=== PATIENT | female | born 1945 | race Caucasian/White ===

== ENCOUNTER → 2017-01-28 | Outpatient (CLI) | payer OTHER ==
[~2017-01-28] MED LIST: CHOL20009 PO; DILT-203 PO; ESCI1TAB10 PO; LOSA50TA6 PO; PYRI50TA77 PO
[2017-01-28 13:08] LABS: BASO % 0.7 %; BASO ABS # 0.05 K/uL (0-0.2); COMPLETE YES; EOS % 1.3 %; IG% 0.1 %; LYMPH % 32.9 %; LYMPH ABS # 2.35 K/uL (1.2-3.4); MEAN CELL VOLUME 97.8 fL (80-100); MEAN CORPUSCULAR HEMOGLOBIN 33.1 pg (25-34); MEAN CORPUSCULAR HGB CONC 33.9 g/dl (32-36); MEAN PLATELET VOLUME 10.9 fL (7.4-10.4); MONO % 10.3 %; NEUT % 54.7 %; PLATELET COUNT 270 K/uL (130-400); WHITE BLOOD COUNT 7.15 K/uL (4.8-10.8)
[2017-01-28 13:43] LABS: ALT/SGPT 23 U/L (12-78); AST/SGOT 19 U/L (15-37); BLOOD UREA NITROGEN 18 mg/dl (7-18); CALCIUM 10.1 mg/dl (8.5-10.1); CARBON DIOXIDE 24 mmol/L (21-32); CHLORIDE 110 mmol/L (98-107); CHOLESTEROL 269 mg/dl (0-200); CREATININE 0.96 mg/dl (0.60-1.20); GLUCOSE 86 mg/dl (70-99); POTASSIUM 4.4 mmol/L (3.5-5.1); SODIUM 143 mmol/L (136-145); TRIGLYCERIDES 73 mg/dl (0-150); VERY LOW DENSITY LIPOPROT CALC 15 mg/dl
[2017-01-28 13:47] LABS: ALKALINE PHOSPHATASE 85 U/L (45-117); CHOLESTEROL/HDL RATIO 3.4; HDL CHOLESTEROL 78 mg/dl; LDL CHOLESTEROL CALCULATED 176 mg/dl
== END | disposition home or self-care (01) ==
LOC: C.LAB1850 11:52
PROVIDERS: ATTEND Physician Assistant
DX: Z00.00 Encounter for general adult medical examination without abnormal findings (principal)

== ENCOUNTER → 2018-03-07 | Outpatient (CLI) | payer OTHER | END | disposition home or self-care (01) | LOC: C.MAMM 12:12 | PROVIDERS: ATTEND Internal Medicine | DX: M81.0 Age-related osteoporosis without current pathological fracture (principal); M85.851 Other specified disorders of bone density and structure, right thigh; M85.852 Other specified disorders of bone density and structure, left thigh ==

== ENCOUNTER 2023-06-25 20:15 | Observation (INO) ==
[2023-06-25] MEDS ORDERED: ACETAMINOPHEN 1,000 MG/100 ML VIAL IV STA (20:59)
--- NOTE | 2023-06-25 21:00 | Emergency Department Note ---
Impression & Plan CHI (closed head injury), Contusion of face, Laceration of lip, Contusion of hand, right, Contusion of right shoulder, Concussion with loss of consciousness ED Provider Note NAME: KIP KU AGE: 77 SEX: Female INFORMANT: Patient ED PROVIDER(S): Edward Melton MD CHIEF COMPLAINT: Fall PLAN: Disposition: Admitted Outpatient prescription management: none Referral: None MEDICAL DECISION MAKING: patient presented to emergency room because of a fall. She was promptly evaluated. She did suffer moderate facial trauma with lip laceration and moderate contusions to the midface and nose. Patient had CT imaging ordered as well as x-ray imaging of the right shoulder and right hand. She was given a dose of IV Tylenol. The patient had blood work performed. She was taken emergently for CT imaging. CT imaging of the head, facial bones, and cervical spine were negative for fracture, dislocation or intracranial hemorrhage. Patient did have soft tissue swelling noted thankfully the patient did not suffer any fracture. Her lip lacerations were evaluated and did not require any suture repair. Patient cervical collar was removed and she had no significant issues with her neck. Patient's ECG was normal sinus rhythm. She did have some nonspecific changes anteriorly and inferiorly. Her CBC, chemistry panel, and LFTs were unremarkable. X-ray imaging of the right hand was negative for fracture. Patient declined imaging of the right shoulder. Patient suffered a significant concussion and facial contusions. Superficial lacerations did not require suturing at this time. I discussed monitoring in the hospital overnight and the patient was in agreement. Consultation was made with Dr. Matias of the hospitalist service. Patient was evaluated in the ER for further management. Care/management discussed with: Discussed with manager strategic alliances Level of care consideration(s): After review of the information above and other included data, I feel the patient requires escalation of care to admission Triage Nursing notes: reviewed and agree them. Vital Signs: reviewed and remarkable for no significant abnormalities Additional History obtained from: none Chronic Medical/Social Conditions affecting care: Hypertension Prior/ Outside/ External records reviewed: none Differential Diagnosis: Fracture, dislocation, contusion, intra-abdominal, pneumothorax, intrathoracic, intracranial, neurologic, compartment syndrome, rhabdomyolysis, as well as other pathologies. Diagnostics, independently interpreted by me: ECG: Twelve-lead ECG reveals normal sinus rhythm at [address] Indra inferiorly and anteriorly. Left anterior fascicular block. Cardiac Monitoring: Cardiac monitoring ordered by me: The patient was placed on continuous cardiac monitoring and observed. It revealed a normal sinus rhythm at 62 beats per minute without ectopy or evidence of dysrhythmia. Medical decision rules: none Imaging studies: CT imaging of the head, facial bones, and cervical spine reveal no evidence of bony trauma. No intracranial bleeding. Patient does have soft tissue swelling present. HPI: 77 year old Female arrives for evaluation of a fall. Patient states she was out walking her dog and tripped. She did lose consciousness. She was found by neighbor. Unknown downtime. Patient had obvious signs of facial trauma. She was bleeding from her upper lip as well. There is bruising around her right eye. Patient also notes some bruising on the right shoulder and soreness in the right fourth finger she did have an episode of emesis. Patient also notes some mild neck pain. Denies any illness today. Patient states that she had this happen to her 1 time before where she tripped on her dog leash. She suffered facial trauma at that time as well. Pt denies visual changes, neck pain, chest pain, breathing difficulties, nausea, vomiting, abdominal pain, back pain, other extremity pain, numbness, weakness, or other complaints. PAST MEDICAL HISTORY: See Below, hypertension PAST SURGICAL HISTORY: See Below, SOCIAL HISTORY: See Below, retired HOME MEDICATIONS: See Below ALLERGIES: See Below VITALS: See Below PHYSICAL EXAMINATION: GENERAL: Awake, uncomfortable appearing, no distress HEAD: Normocephalic, forehead contusion noted no marquis sign. No raccoon eyes but right periorbital ecchymosis present.. EYES: Normal conjunctiva. PERRL. EARS: External ears normal. Right TM normal. Left TM normal. NOSE: No septal hematoma. Dried blood at the nares. Contusion present. Mildly tender. OROPHARYNX: Laceration to the external as well as internal upper lip in the midline that parallels the vermilion border but not involving border. Lower lips, tongue, and mucosa unremarkable. No erythema or exudate. NECK: Inspection normal. No tracheal deviation or JVD. No posterior midline tenderness. No step offs noted. RESPIRATORY: CTA bilaterally. Breath sounds equal. No wheezes. No rhonchi. Normal respiratory effort. CARDIAC: Regular rate, normal rhythm. No murmurs. No rubs. ABDOMEN: Inspection reveals no abnormalities. Soft, non distended. No tenderness to palpation. No hernias. BACK: No midline step offs or tenderness to palpation. Unremarkable. PELVIS: Stable to rock. SKIN: Normal. LYMPH: No adenopathy. MUSCULOSKELETAL: Left upper and both lower extremities are atraumatic. There is a contusion noted to the right anterior deltoid area. Good range of motion of the right shoulder and elbow without any significant tenderness. There is ecchymosis of the right proximal fourth finger with tenderness to palpation. There is a mild skin tear noted to the back of the right hand. NEURO: GCS 15. Normal sensorium. No sensory or motor deficits noted. PROCEDURES: none CRITICAL CARE: none OBSERVATION NOTE: none Past Med/Surg History Medical History Arthralgia of multiple sites SOB (shortness of breath) on exertion Lightheadedness Colitis Cough Vitamin D deficiency History of Clostridium difficile colitis Surgical History H/O cataract removal with insertion of prosthetic lens S/P tonsillectomy S/P partial colectomy S/P tooth extraction S/P knee surgery Family History Mother Diabetes Macular degeneration Grandmother (Maternal) Macular degeneration Family/Other Osteoporosis Other Myocardial infarction Denies family history of Ovarian cancer Prostate cancer Breast cancer Colorectal cancer Social History Smoking Status: Never smoker Second Hand Exposure: No; Hx Alcohol Use: Yes Hx Substance Use: No Preferred Language: Bulgarian Communication Ability: Effective Visual Impairment: No Limitations Hearing Ability: Normal [employer] Required: No marital status: Current Living Situation: Spouse current occupational status: retired Feels Safe at Home: Yes Childhood Exposure to Second-Hand Smoke: No Dental Care, Regularly: Yes Physical Activity Frequency: 3-4 Times per Week Seatbelt Use: always Sunscreen Use: Yes Allergies Allergies Allergy/AdvReac Type Severity Reaction Status Date / Time clindamycin Allergy Unknown CAN'T Verified 06/25/23 21:35 REMEMBER codeine Allergy Unknown CAN'T Verified 06/25/23 21:35 REMEMBER oxycodone Allergy Unknown CAN'T Verified 06/25/23 21:35 REMEMBER Penicillins Allergy Unknown CAN'T Verified 06/25/23 21:35 REMEMBER sulfamethoxazole Allergy Unknown CAN'T Verified 06/25/23 21:35 [From Bactrim] REMEMBER Tetracyclines Allergy Unknown CAN'T Verified 06/25/23 21:35 REMEMBER trimethoprim [From Bactrim] Allergy Unknown CAN'T Verified 06/25/23 21:35 REMEMBER Home Meds Home Medications Medication Instructions Recorded Confirmed cholecalciferol (vitamin D3) 50 2,000 units PO DAILY #30 tabs 07/03/19 06/25/23 mcg (2,000 unit) tablet folic acid 1 mg tablet 1 mg PO DAILY 03/27/21 06/25/23 desonide 0.05 % topical ointment 1 applic topical BID PRN Skin 03/08/22 06/25/23 Irritation #1 g Previous Rx's Medication Instructions Recorded lactobacillus combination no.4 3 3,000 mmu cells PO DAILY #30 caps 10/07/21 billion cell capsule (Probiotic) diltiazem HCl 240 mg capsule,24 240 mg PO DAILY #90 caps 08/19/22 hr,extended release valsartan 80 mg tablet 80 mg PO DAILY #90 tabs 08/19/22 levothyroxine 50 mcg tablet 50 mcg PO DAILY #90 tabs 05/09/23 escitalopram oxalate 20 mg tablet 20 mg PO DAILY #90 tabs 06/09/23 Results & Data (ED) Vital Signs Vital Signs - 24 hr 06/25/23 20:25 06/25/23 20:27 06/25/23 20:30 Temperature 36.3 C L Temperature Source Oral Pulse Rate 61 62 Pulse Rate [Bilateral] 54 L Respiratory Rate 18 20 Blood Pressure 163/101 H Blood Pressure [Right Arm] 163/101 H Blood Pressure Mean 121 Blood Pressure Mean [Right Arm] 121 Pulse Oximetry 95 94 Oxygen Delivery Method Room Air Room Air Sepsis Recent Fever Within 48 Hours No Sepsis New/Unexplained Change in Mental Status N/A Sepsis Action Taken by Nursing No Action Required 06/25/23 20:58 06/25/23 23:00 06/25/23 23:30 Temperature Temperature Source Pulse Rate 63 64 Pulse Rate [Bilateral] Respiratory Rate 18 27 H Blood Pressure 123/78 129/71 Blood Pressure [Right Arm] Blood Pressure Mean 93 90 Blood Pressure Mean [Right Arm] Pulse Oximetry 98 Oxygen Delivery Method Sepsis Recent Fever Within 48 Hours Sepsis New/Unexplained Change in Mental Status Sepsis Action Taken by Nursing 06/26/23 00:30 06/26/23 00:30 06/26/23 00:31 Temperature Temperature Source Pulse Rate 69 67 68 Pulse Rate [Bilateral] Respiratory Rate 21 13 Blood Pressure 151/95 H Blood Pressure [Right Arm] Blood Pressure Mean 113 Blood Pressure Mean [Right Arm] Pulse Oximetry 93 Oxygen Delivery Method Sepsis Recent Fever Within 48 Hours Sepsis New/Unexplained Change in Mental Status Sepsis Action Taken by Nursing 06/26/23 00:31 Temperature Temperature Source Pulse Rate Pulse Rate [Bilateral] Respiratory Rate Blood Pressure 151/95 H Blood Pressure [Right Arm] Blood Pressure Mean 113 Blood Pressure Mean [Right Arm] Pulse Oximetry Oxygen Delivery Method Sepsis Recent Fever Within 48 Hours Sepsis New/Unexplained Change in Mental Status Sepsis Action Taken by Nursing Laboratory Data 06/25/23 20:42 06/25/23 21:52 Lab Results 06/25/23 06/25/23 06/25/23 Range/Units 20:42 20:49 21:52 WBC 6.16 (4.8-10.8) K/ul RBC 4.51 (4.20-5.40) M/uL Hgb 15.2 (12.0-16.0) g/dl POC Hgb 16.3 H (12.0-16.0) g/dl Hct 44.5 (37.0-47.0) % POC Hct 48 H (37-47) % MCV 98.7 (80.0-100.0) fL MCH 33.7 (25.0-34.0) pg MCHC 34.2 (32.0-36.0) g/dL RDW Std Deviation 50.5 H (36.4-46.3) fL RDW Coeff of Ciarra 13.8 (11.5-14.5) % Plt Count 166 (130-400) K/uL MPV 11.6 (9.4-12.4) fL Immature Gran % (Auto) 0.5 % Neut % (Auto) 66.9 % Lymph % (Auto) 19.0 % Lumpkin % (Auto) 10.4 % Eos % (Auto) 2.1 % Baso % (Auto) 1.1 % Neut # (Auto) 4.12 (1.40-6.50) K/uL Lymph # (Auto) 1.17 L (1.20-3.40) K/uL [place]kin # (Auto) 0.64 H (0.11-0.59) K/uL Eos # (Auto) 0.13 (0.00-0.50) K/uL Baso # (Auto) 0.07 (0.00-0.20) K/uL Immature Gran # (Auto) 0.03 (0.01-0.20) K/uL POC Sodium 133 L (135-144) mmol/L Sodium Cancelled 135 L POC Potassium 8.6 H* (3.3-5.0) mmol/L Potassium Cancelled 4.6 POC Chloride 105 (101-112) mmol/L Chloride Cancelled 102 Carbon Dioxide Cancelled 22 POC Total CO2 23 L (24-31) mmol/L Anion Gap Cancelled 11 POC Anion Gap 14.0 L (16-25) mmol/L POC BUN 24 H (7-18) mg/dl BUN Cancelled 15 Creatinine Cancelled 0.91 POC Creatinine 1.2 (0.6-1.3) mg/dl Est Cr Clr Drug Dosing Cancelled 50.0 Est GFR ( Amer) Cancelled 70.5 Est GFR (Non-Af Amer) Cancelled 60.9 BUN/Creatinine Ratio Cancelled 16.5 Glucose Cancelled 100 H POC Glucose (other) 98 (70-99) mg/dl Calcium Cancelled 9.0 POC Ioniz Calcium Ronald 1.00 L (1.12-1.32) mmol/l Total Bilirubin Cancelled 0.3 AST Cancelled 22 ALT Cancelled 17 Alkaline Phosphatase Cancelled 99 Troponin I High Sens 8.1 (0-14) pg/ml Total Protein Cancelled 7.4 Albumin Cancelled 4.1 Globulin Cancelled 3.3 Albumin/Globulin Ratio Cancelled 1.2 TSH Cancelled 1.943 Administered Medications Discontinued Medications Acetaminophen (Ofirmev) 1,000 mg in 100 mls @ 400 mls/hr IV NOW STA Stop: 06/25/23 21:13 Last Infusion: 06/25/23 21:28 Dose: Infused Documented By: Admin: 06/25/23 21:13 Dose: 400 mls/hr Documented By: RODOLFO Ondansetron HCl (Ondansetron Inj 2 Mg/Ml 2 Ml Vial) Confirm Administered Dose 4 mg .ROUTE .STK-MED ONE Stop: 06/25/23 21:04 Last Admin: 06/25/23 21:28 Dose: Not Given Documented By: RODOLFO Ondansetron HCl (Ondansetron Inj 2 Mg/Ml 2 Ml Vial) 4 mg IV NOW STA Stop: 06/25/23 21:11 Last Admin: 06/25/23 21:13 Dose: 4 mg Documented By: RODOLFO Imaging Data Radiologist's Impression: Head CT 06/25/23 20:39 Exam(s): CT HEAD Without Contrast EXAM: CT Head Without Intravenous Contrast CLINICAL HISTORY: Reason for exam: fall. TECHNIQUE: Axial computed tomography images of the head/brain without intravenous contrast. CTDI is 37.78 mGy and DLP is 1334.18 mGy-cm. Automated exposure control was utilized for the study. A dose lowering technique was utilized adhering to the principles of ALARA. COMPARISON: No relevant prior studies available. FINDINGS: Brain: Mild periventricular and deep white matter low density consistent with chronic small vessel disease and/or senescent changes. No acute large vessel infarct or intracranial hemorrhage is seen. Ventricles: Unremarkable. No ventriculomegaly. Bones/joints: Unremarkable. No orbital or acute facial fracture is identified. Soft tissues: There is soft tissue swelling over the right maxilla and on the medial aspect of the right orbit preseptal soft tissues consistent with contusion. Sinuses: Unremarkable as visualized. No acute sinusitis. Mastoid air cells: Unremarkable as visualized. No mastoid effusion. IMPRESSION: 1. No orbital or acute facial fracture is identified. 2. There is soft tissue swelling over the right maxilla and on the medial aspect of the right orbit preseptal soft tissues consistent with contusion. 3. Mild periventricular and deep white matter low density consistent with chronic small vessel disease and/or senescent changes. No acute large vessel infarct or intracranial hemorrhage is seen. Electronically signed by: Dale Matias MD 06/25/23 21:[address] 06/25/23 20:53 Exam(s): CT C SPINE EXAM: CT Cervical Spine Without Intravenous Contrast CLINICAL HISTORY: Reason for exam: fall. TECHNIQUE: Axial computed tomography images of the cervical spine without intravenous contrast. CTDI is 37.78 mGy and DLP is 1334.18 mGy-cm. Automated exposure control was utilized for the study. A dose lowering technique was utilized adhering to the principles of ALARA. COMPARISON: No relevant prior studies available. FINDINGS: Vertebrae: Mild narrowing of the atlantodental joint. The odontoid process is intact. No acute fracture. Soft tissues: Unremarkable. DISCS/SPINAL CANAL/NEURAL FORAMINA: C2-C3: Unremarkable. No significant disc disease. No stenosis. C3-C4: Unremarkable. No significant disc disease. No stenosis. C4-C5: Mild degenerative disc disease. No stenosis. C5-C6: Moderate degenerative disc disease. No stenosis. C6-C7: Moderate degenerative disc disease. No stenosis. C7-T1: Unremarkable. No significant disc disease. No stenosis. IMPRESSION: Mild multilevel degenerative disc disease and facet arthrosis throughout the cervical spine. No acute fracture or subluxation is seen. Electronically signed by: Dale Matias MD 06/25/23 21:[address] 06/25/23 20:53 Exam(s): CT FACIAL Without Contrast EXAM: CT Maxillofacial Without Intravenous Contrast CLINICAL HISTORY: Reason for exam: fall. TECHNIQUE: Axial computed tomography images of the face without intravenous contrast. CTDI is 37.78 mGy and DLP is 1334.18 mGy-cm. Automated exposure control was utilized for the study. A dose lowering technique was utilized adhering to the principles of ALARA. COMPARISON: No relevant prior studies available. FINDINGS: Bones/joints: The mandible is intact and normally positioned. Soft tissues: Soft tissue swelling over the right maxilla and medial aspect of the right orbit. Orbits: The globes are symmetrical. No retrobulbar hematoma is seen. The orbital rim is intact bilaterally. Sinuses: Unremarkable. No air-fluid levels. Nasal cavity/septum: The nasal bones appear intact. IMPRESSION: Soft tissue swelling over the right maxilla and orbit. No orbital or facial fracture is identified. Electronically signed by: Dale Matias MD 06/25/23 21:54 PM Hand X-Ray 06/25/23 20:59 RIGHT HAND 3 VIEWS CLINICAL HISTORY: Fall. Fourth finger pain. FINDINGS: 3 views of the right hand are obtained. No prior studies are available for comparison at the time of dictation. The skeletal structures are osteopenic. No fracture is seen. Minimal degenerative change is observed. The overlying soft tissues are within normal limits. An IV catheter is present along the dorsal aspect of the wrist. IMPRESSION: No acute bony abnormality is identified. Electronically signed by: Brandyn Mcdonald M.D. 06/25/2023 11:00 PM Discharge Plan Visit Data Chief Complaint: Fall Stated Complaint: GLF, Facial Injuries ED Provider: Edward Melton Discharge Problem: CHI (closed head injury), Contusion of face, Laceration of lip, Contusion of hand, right, Contusion of right shoulder, Concussion with loss of consciousness Patient Disposition: Admitted As Inpatient Discharge Instructions Interventions: ED Discharge Assessment Last Done: 06/26/23 02:15
[2023-06-25 21:03] LABS: iSTAT Creatinine 1.2 mg/dl (0.6-1.3); iSTAT Hemoglobin 16.3 g/dl (12.0-16.0); iSTAT Potassium 8.6 mmol/L (3.3-5.0)
[2023-06-25] MEDS ORDERED: ONDANSETRON INJ 2 MG/ML 2 ML VIAL ONE (21:03)
[2023-06-25] MEDS ORDERED: ONDANSETRON INJ 2 MG/ML 2 ML VIAL IV STA (21:10)
[2023-06-25 21:27] LABS: Basophils # (auto) 0.07 K/uL (0.00-0.20); Basophils % (auto) 1.1 %; Eosinophils # (auto) 0.13 K/uL (0.00-0.50); Eosinophils % (auto) 2.1 %; Hematocrit (blood only) 44.5 % (37.0-47.0); Hemoglobin 15.2 g/dl (12.0-16.0); Immature Granulocytes # (auto) 0.03 K/uL (0.01-0.20); Immature Granulocytes % (auto) 0.5 %; Lymphocytes # (auto) 1.17 K/uL (1.20-3.40); Mean Corpuscular Hemoglobin 33.7 pg (25.0-34.0); Mean Corpuscular Hgb Conc 34.2 g/dL (32.0-36.0); Mean Corpuscular Volume 98.7 fL (80.0-100.0); Mean Platelet Volume 11.6 fL (9.4-12.4); Monocytes # (auto) 0.64 K/uL (0.11-0.59); Monocytes % (auto) 10.4 %; Neutrophils # (auto) 4.12 K/uL (1.40-6.50); Neutrophils % (auto) 66.9 %; Platelet Count 166 K/uL (130-400); RDW Coefficient of Variation 13.8 % (11.5-14.5); RDW Standard Deviation 50.5 fL (36.4-46.3); Red Blood Count 4.51 M/uL (4.20-5.40); White Blood Count 6.16 K/ul (4.8-10.8)
--- NOTE | 2023-06-25 21:53 | CT Scan Report ---
Exam(s): CT HEAD Without Contrast EXAM: CT Head Without Intravenous Contrast CLINICAL HISTORY: Reason for exam: fall. TECHNIQUE: Axial computed tomography images of the head/brain without intravenous contrast. CTDI is 37.78 mGy and DLP is 1334.18 mGy-cm. Automated exposure control was utilized for the study. A dose lowering technique was utilized adhering to the principles of ALARA. COMPARISON: No relevant prior studies available. FINDINGS: Brain: Mild periventricular and deep white matter low density consistent with chronic small vessel disease and/or senescent changes. No acute large vessel infarct or intracranial hemorrhage is seen. Ventricles: Unremarkable. No ventriculomegaly. Bones/joints: Unremarkable. No orbital or acute facial fracture is identified. Soft tissues: There is soft tissue swelling over the right maxilla and on the medial aspect of the right orbit preseptal soft tissues consistent with contusion. Sinuses: Unremarkable as visualized. No acute sinusitis. Mastoid air cells: Unremarkable as visualized. No mastoid effusion. IMPRESSION: 1. No orbital or acute facial fracture is identified. 2. There is soft tissue swelling over the right maxilla and on the medial aspect of the right orbit preseptal soft tissues consistent with contusion. 3. Mild periventricular and deep white matter low density consistent with chronic small vessel disease and/or senescent changes. No acute large vessel infarct or intracranial hemorrhage is seen. Electronically signed by: Dale Matias MD 06/25/23 21:52 PM
--- NOTE | 2023-06-25 21:55 | CT Scan Report ---
Exam(s): CT FACIAL Without Contrast EXAM: CT Maxillofacial Without Intravenous Contrast CLINICAL HISTORY: Reason for exam: fall. TECHNIQUE: Axial computed tomography images of the face without intravenous contrast. CTDI is 37.78 mGy and DLP is 1334.18 mGy-cm. Automated exposure control was utilized for the study. A dose lowering technique was utilized adhering to the principles of ALARA. COMPARISON: No relevant prior studies available. FINDINGS: Bones/joints: The mandible is intact and normally positioned. Soft tissues: Soft tissue swelling over the right maxilla and medial aspect of the right orbit. Orbits: The globes are symmetrical. No retrobulbar hematoma is seen. The orbital rim is intact bilaterally. Sinuses: Unremarkable. No air-fluid levels. Nasal cavity/septum: The nasal bones appear intact. IMPRESSION: Soft tissue swelling over the right maxilla and orbit. No orbital or facial fracture is identified. Electronically signed by: Dale Matias MD 06/25/23 21:54 PM
--- NOTE | 2023-06-25 21:57 | CT Scan Report ---
Exam(s): CT C SPINE EXAM: CT Cervical Spine Without Intravenous Contrast CLINICAL HISTORY: Reason for exam: fall. TECHNIQUE: Axial computed tomography images of the cervical spine without intravenous contrast. CTDI is 37.78 mGy and DLP is 1334.18 mGy-cm. Automated exposure control was utilized for the study. A dose lowering technique was utilized adhering to the principles of ALARA. COMPARISON: No relevant prior studies available. FINDINGS: Vertebrae: Mild narrowing of the atlantodental joint. The odontoid process is intact. No acute fracture. Soft tissues: Unremarkable. DISCS/SPINAL CANAL/NEURAL FORAMINA: C2-C3: Unremarkable. No significant disc disease. No stenosis. C3-C4: Unremarkable. No significant disc disease. No stenosis. C4-C5: Mild degenerative disc disease. No stenosis. C5-C6: Moderate degenerative disc disease. No stenosis. C6-C7: Moderate degenerative disc disease. No stenosis. C7-T1: Unremarkable. No significant disc disease. No stenosis. IMPRESSION: Mild multilevel degenerative disc disease and facet arthrosis throughout the cervical spine. No acute fracture or subluxation is seen. Electronically signed by: Dale Matias MD 06/25/23 21:55 PM
[2023-06-25 22:48] LABS: Albumin Globulin Ratio 1.2 (0.9-2); Albumin Level 4.1 gm/dl (3.4-5.0); BUN Creatinine Ratio 16.5 (10-20); Bilirubin,Total 0.3 mg/dl (0.2-1.0); Est GFR (African American) 70.5 ml/min; Est GFR (Non-African American) 60.9 ml/min; Globulin 3.3 gm/dl (2.5-4.0); Potassium 4.6 mmol/L (3.5-5.1); Total Protein 7.4 gm/dl (6.0-8.3)
--- NOTE | 2023-06-25 23:01 | XRay Report ---
RIGHT HAND 3 VIEWS CLINICAL HISTORY: Fall. Fourth finger pain. FINDINGS: 3 views of the right hand are obtained. No prior studies are available for comparison at th e time of dictation. The skeletal structures are osteopenic. No fracture is seen. Minimal degenerativ e change is observed. The overlying soft tissues are within normal limits. An IV catheter is present along the dorsal aspect of the wrist. IMPRESSION: No acute bony abnormality is identified. Electronically signed by: Brandyn Mcdonald M.D. 06/25/2023 11:00 PM
[2023-06-25 23:03] LABS: Thyroid Stimulating Hormone 1.943 uIu/ml (0.300-4.500)
--- NOTE | 2023-06-26 00:51 | History & Physical Report ---
Date of Service June 26, 2023 Assessment & Plan (1) Concussion with loss of consciousness: Plan: 77yo female presenting after a fall at home, loss of consciousness. Patient lives at home with her who is currently in [facility]. -Observation -Neuro checks -Fall precautions -Ice to affected area -Tylenol as needed for pain (2) HTN (hypertension): Plan: Chronic. -Continue Valsartan -Monitor History of Present Illness Chief Complaint: fall Primary Care Provider: Noe Jameson MD Laisha Paulino is a pleasant 77yo female with history of HTN, HLP presenting after a fall at home. She was walking her dog and thinks she may have tripped over the leash and fell face first into the mulch. Patient does not recall what happened afterwards but woke up in the ambulance. Her neighbors found her down and called 911. Patient denies chest pain, cough, SOB. Denies abdominal pain, nausea, vomiting or diarrhea. She is active and independent at baseline. Does not fall frequently. Allergies Allergy/AdvReac Type Severity Reaction Status Date / Time clindamycin Allergy Unknown CAN'T Verified 06/25/23 21:35 REMEMBER codeine Allergy Unknown CAN'T Verified 06/25/23 21:35 REMEMBER oxycodone Allergy Unknown CAN'T Verified 06/25/23 21:35 REMEMBER Penicillins Allergy Unknown CAN'T Verified 06/25/23 21:35 REMEMBER sulfamethoxazole Allergy Unknown CAN'T Verified 06/25/23 21:35 [From Bactrim] REMEMBER Tetracyclines Allergy Unknown CAN'T Verified 06/25/23 21:35 REMEMBER trimethoprim [From Bactrim] Allergy Unknown CAN'T Verified 06/25/23 21:35 REMEMBER Home Medications Medication Instructions Recorded Confirmed Type cholecalciferol (vitamin D3) 50 2,000 units PO DAILY #30 tabs 07/03/19 06/25/23 History mcg (2,000 unit) tablet folic acid 1 mg tablet 1 mg PO DAILY 03/27/21 06/25/23 History lactobacillus combination no.4 3 3,000 mmu cells PO DAILY #30 caps 10/07/21 06/25/23 Rx billion cell capsule (Probiotic) desonide 0.05 % topical ointment 1 applic topical BID PRN Skin 03/08/22 06/25/23 History Irritation #1 g diltiazem HCl 240 mg capsule,24 240 mg PO DAILY #90 caps 08/19/22 06/25/23 Rx hr,extended release valsartan 80 mg tablet 80 mg PO DAILY #90 tabs 08/19/22 06/25/23 Rx levothyroxine 50 mcg tablet 50 mcg PO DAILY #90 tabs 05/09/23 06/25/23 Rx escitalopram oxalate 20 mg tablet 20 mg PO DAILY #90 tabs 06/09/23 06/25/23 Rx Past Med/Surg History Medical History Arthralgia of multiple sites SOB (shortness of breath) on exertion Lightheadedness Colitis Cough Vitamin D deficiency History of Clostridium difficile colitis Surgical History H/O cataract removal with insertion of prosthetic lens 04/2022 S/P tonsillectomy S/P partial colectomy S/P tooth extraction S/P knee surgery Family History Mother Diabetes Macular degeneration Grandmother (Maternal) Macular degeneration Family/Other Osteoporosis Other Myocardial infarction Denies family history of Ovarian cancer Prostate cancer Breast cancer Colorectal cancer Social History Smoking Status: Never smoker Second Hand Exposure: Yes ( smokes cigars); Do You Dip or Chew Tobacco: No; Hx Alcohol Use: No Hx Substance Use: No Preferred Language: [place] Communication Ability: Effective Visual Impairment: No Limitations Hearing Ability: Normal Spring Assembler Required: No marital status: Current Living Situation: Spouse current occupational status: retired Other Information That Helps Us Care for You: No Feels Safe at Home: Yes Safety Concerns: Feels Safe At This Time Childhood Exposure to Second-Hand Smoke: No Dental Care, Regularly: Yes Physical Activity Frequency: 3-4 Times per Week Seatbelt Use: always Sunscreen Use: Yes Assistive Devices: None Review of Systems Review of Systems: All systems reviewed & are unremarkable except as noted in HPI & below Physical Exam Physical Exam: General: patient resting comfortably, NAD, awake, alert and responsive Skin: facial trauma with significant bruising over right eye, cheek, abrasion on lips, abrasion on right shoulder, bruising and abrasions on right hand HEENT: PERRL, EOMI, anicteric sclera, conjunctiva without injection, external ear normal to inspection and nontender, nares patent, moist mucus membranes, dentition intact, no oropharyngeal lesions, neck supple, trachea midline, no LAD, no thyromegaly, no JVD No septal hematoma, no hemotympany, no marquis's sign Heart: +S1/S2, regular, no m/r/g Lungs: equal air entry bilaterally, no rales/rhonchi/wheezes Abd: +BS, soft, NT/ND, no masses/organomegaly/ascites Ext: warm, 2+ pulses in UE/LE bilaterally, no clubbing/cyanosis or edema Neuro: nonfocal, patient AA&O x 4, speech intact, no facial droop, moving all extremities on command with equal strength 5/5 Results & Data Results & Data Vital Signs (Past 12 Hours) Vital Signs Temp Pulse Pulse Resp BP BP Pulse Ox 06/26/23 00:31 151/95 H 06/26/23 00:31 68 13 151/95 H 93 06/26/23 00:30 67 21 06/26/23 00:30 69 06/25/23 23:30 64 27 H 129/71 06/25/23 23:00 63 18 123/78 06/25/23 20:58 98 06/25/23 20:30 36.3 C L 62 20 163/101 H 94 06/25/23 20:27 61 06/25/23 20:25 54 L 18 163/101 H 95 O2 Del Method 06/26/23 00:31 06/26/23 00:31 06/26/23 00:30 06/26/23 00:30 06/25/23 23:30 06/25/23 23:00 06/25/23 20:58 06/25/23 20:30 Room Air 06/25/23 20:27 06/25/23 20:25 Room Air Laboratory Results Laboratory Results WBC 6.16 K/ul (4.8-10.8) 06/25/23 20:42 RBC 4.51 M/uL (4.20-5.40) 06/25/23 20:42 Hgb 15.2 g/dl (12.0-16.0) 06/25/23 20:42 POC Hgb 16.3 g/dl (12.0-16.0) H 06/25/23 20:49 Hct 44.5 % (37.0-47.0) 06/25/23 20:42 POC Hct 48 % (37-47) H 06/25/23 20:49 MCV 98.7 fL (80.0-100.0) 06/25/23 20:42 MCH 33.7 pg (25.0-34.0) 06/25/23 20:42 MCHC 34.2 g/dL (32.0-36.0) 06/25/23 20:42 RDW Std Deviation 50.5 fL (36.4-46.3) H 06/25/23 20:42 RDW Coeff of Ciarra 13.8 % (11.5-14.5) 06/25/23 20:42 Plt Count 166 K/uL (130-400) 06/25/23 20:42 MPV 11.6 fL (9.4-12.4) 06/25/23 20:42 Immature Gran % (Auto) 0.5 % 06/25/23 20:42 Neut % (Auto) 66.9 % 06/25/23 20:42 Lymph % (Auto) 19.0 % 06/25/23 20:42 Caswell % (Auto) 10.4 % 06/25/23 20:42 Eos % (Auto) 2.1 % 06/25/23 20:42 Baso % (Auto) 1.1 % 06/25/23 20:42 Neut # (Auto) 4.12 K/uL (1.40-6.50) 06/25/23 20:42 Lymph # (Auto) 1.17 K/uL (1.20-3.40) L 06/25/23 20:42 Caswell # (Auto) 0.64 K/uL (0.11-0.59) H 06/25/23 20:42 Eos # (Auto) 0.13 K/uL (0.00-0.50) 06/25/23 20:42 Baso # (Auto) 0.07 K/uL (0.00-0.20) 06/25/23 20:42 Immature Gran # (Auto) 0.03 K/uL (0.01-0.20) 06/25/23 20:42 POC Sodium 133 mmol/L (135-144) L 06/25/23 20:49 Sodium 135 mmol/L (136-145) L 06/25/23 21:52 POC Potassium 8.6 mmol/L (3.3-5.0) H* 06/25/23 20:49 Potassium 4.6 mmol/L (3.5-5.1) 06/25/23 21:52 POC Chloride 105 mmol/L (101-112) 06/25/23 20:49 Chloride 102 mmol/L (98-107) 06/25/23 21:52 Carbon Dioxide 22 mmol/L (21-32) 06/25/23 21:52 POC Total CO2 23 mmol/L (24-31) L 06/25/23 20:49 Anion Gap 11 (3-11) 06/25/23 21:52 POC Anion Gap 14.0 mmol/L (16-25) L 06/25/23 20:49 POC BUN 24 mg/dl (7-18) H 06/25/23 20:49 BUN 15 mg/dl (6-23) 06/25/23 21:52 Creatinine 0.91 mg/dl (0.6-1.2) 06/25/23 21:52 POC Creatinine 1.2 mg/dl (0.6-1.3) 06/25/23 20:49 Est Cr Clr Drug Dosing 50.0 ml/min 06/25/23 21:52 Est GFR ( Amer) 70.5 ml/min 06/25/23 21:52 Est GFR (Non-Af Amer) 60.9 ml/min 06/25/23 21:52 BUN/Creatinine Ratio 16.5 (10-20) 06/25/23 21:52 Glucose 100 mg/dl (70-99(Fasting)) H 06/25/23 21:52 POC Glucose (other) 98 mg/dl (70-99) 06/25/23 20:49 Calcium 9.0 mg/dl (8.6-10.3) 06/25/23 21:52 POC Ioniz Calcium Ronald 1.00 mmol/l (1.12-1.32) L 06/25/23 20:49 Total Bilirubin 0.3 mg/dl (0.2-1.0) 06/25/23 21:52 AST 22 U/L (13-39) 06/25/23 21:52 ALT 17 U/L (7-52) 06/25/23 21:52 Alkaline Phosphatase 99 U/L (34-104) 06/25/23 21:52 Troponin I High Sens 8.1 pg/ml (0-14) 06/25/23 21:52 Total Protein 7.4 gm/dl (6.0-8.3) 06/25/23 21:52 Albumin 4.1 gm/dl (3.4-5.0) 06/25/23 21:52 Globulin 3.3 gm/dl (2.5-4.0) 06/25/23 21:52 Albumin/Globulin Ratio 1.2 (0.9-2) 06/25/23 21:52 TSH 1.943 uIu/ml (0.300-4.500) 06/25/23 21:[address] 06/25/23 20:39 Exam(s): CT HEAD Without Contrast EXAM: CT Head Without Intravenous Contrast CLINICAL HISTORY: Reason for exam: fall. TECHNIQUE: Axial computed tomography images of the head/brain without intravenous contrast. CTDI is 37.78 mGy and DLP is 1334.18 mGy-cm. Automated exposure control was utilized for the study. A dose lowering technique was utilized adhering to the principles of ALARA. COMPARISON: No relevant prior studies available. FINDINGS: Brain: Mild periventricular and deep white matter low density consistent with chronic small vessel disease and/or senescent changes. No acute large vessel infarct or intracranial hemorrhage is seen. Ventricles: Unremarkable. No ventriculomegaly. Bones/joints: Unremarkable. No orbital or acute facial fracture is identified. Soft tissues: There is soft tissue swelling over the right maxilla and on the medial aspect of the right orbit preseptal soft tissues consistent with contusion. Sinuses: Unremarkable as visualized. No acute sinusitis. Mastoid air cells: Unremarkable as visualized. No mastoid effusion. IMPRESSION: 1. No orbital or acute facial fracture is identified. 2. There is soft tissue swelling over the right maxilla and on the medial aspect of the right orbit preseptal soft tissues consistent with contusion. 3. Mild periventricular and deep white matter low density consistent with chronic small vessel disease and/or senescent changes. No acute large vessel infarct or intracranial hemorrhage is seen. Electronically signed by: Dale Matias MD 06/25/23 21:[address] 06/25/23 20:53 Exam(s): CT C SPINE EXAM: CT Cervical Spine Without Intravenous Contrast CLINICAL HISTORY: Reason for exam: fall. TECHNIQUE: Axial computed tomography images of the cervical spine without intravenous contrast. CTDI is 37.78 mGy and DLP is 1334.18 mGy-cm. Automated exposure control was utilized for the study. A dose lowering technique was utilized adhering to the principles of ALARA. COMPARISON: No relevant prior studies available. FINDINGS: Vertebrae: Mild narrowing of the atlantodental joint. The odontoid process is intact. No acute fracture. Soft tissues: Unremarkable. DISCS/SPINAL CANAL/NEURAL FORAMINA: C2-C3: Unremarkable. No significant disc disease. No stenosis. C3-C4: Unremarkable. No significant disc disease. No stenosis. C4-C5: Mild degenerative disc disease. No stenosis. C5-C6: Moderate degenerative disc disease. No stenosis. C6-C7: Moderate degenerative disc disease. No stenosis. C7-T1: Unremarkable. No significant disc disease. No stenosis. IMPRESSION: Mild multilevel degenerative disc disease and facet arthrosis throughout the cervical spine. No acute fracture or subluxation is seen. Electronically signed by: Dale Matias MD 06/25/23 21:[address] 06/25/23 20:53 Exam(s): CT FACIAL Without Contrast EXAM: CT Maxillofacial Without Intravenous Contrast CLINICAL HISTORY: Reason for exam: fall. TECHNIQUE: Axial computed tomography images of the face without intravenous contrast. CTDI is 37.78 mGy and DLP is 1334.18 mGy-cm. Automated exposure control was utilized for the study. A dose lowering technique was utilized adhering to the principles of ALARA. COMPARISON: No relevant prior studies available. FINDINGS: Bones/joints: The mandible is intact and normally positioned. Soft tissues: Soft tissue swelling over the right maxilla and medial aspect of the right orbit. Orbits: The globes are symmetrical. No retrobulbar hematoma is seen. The orbital rim is intact bilaterally. Sinuses: Unremarkable. No air-fluid levels. Nasal cavity/septum: The nasal bones appear intact. IMPRESSION: Soft tissue swelling over the right maxilla and orbit. No orbital or facial fracture is identified. Electronically signed by: Dale Matias MD 06/25/23 21:54 PM Hand X-Ray 06/25/23 20:59 RIGHT HAND 3 VIEWS CLINICAL HISTORY: Fall. Fourth finger pain. FINDINGS: 3 views of the right hand are obtained. No prior studies are available for comparison at the time of dictation. The skeletal structures are osteopenic. No fracture is seen. Minimal degenerative change is observed. The overlying soft tissues are within normal limits. An IV catheter is present along the dorsal aspect of the wrist. IMPRESSION: No acute bony abnormality is identified. Electronically signed by: Brandyn Mcdonald M.D. 06/25/2023 11:00 PM PG Care Time/CCT Total # of Minutes Spent Total Time Spent with Patient: Total time spent is greater than 50% in coordination of care (as documented) at patient's floor/unit and/or counseling patient: Coding Level of Care Code 80228 INT INP/OBS CARE 2/55MIN Diagnoses Concussion with loss of consciousness S06.0X9A HTN (hypertension) I10
[2023-06-26 01:22] LABS: Troponin I High Sensitivity 8.1 pg/ml (0-14)
[2023-06-26] MEDS ORDERED: ONDANSETRON INJ 2 MG/ML 2 ML VIAL IV PRN (03:03)
[2023-06-26] MEDS ORDERED: STAT IV/IM STA (03:03)
[2023-06-26] MEDS ORDERED: CALCIUM GLUCONATE 10% 1,000 MG in SODIUM CHLOR 0.9% MINI-B 50 ML IV ONE (03:30)
[2023-06-26] MEDS: LEVOTHYROXINE SODIUM 50 MCG TABLET PO SCH (06:16)
[2023-06-26] MEDS: ACETAMINOPHEN 325 MG TAB PO PRN ×2 (06:16→15:15)
[2023-06-26] MEDS: VALSARTAN 80 MG TAB PO SCH (07:57)
[2023-06-26] MEDS: dilTIAZem HCL 240 MG CAPCR PO SCH (07:57)
[2023-06-26] MEDS: ESCITALOPRAM OXALATE 20 MG TAB PO SCH (07:57)
[2023-06-26 09:07] LABS: Appearance Urine Clear (Clear); Bilirubin Urine Negative (Negative); Blood Urine Negative (Negative); Color Urine Yellow; Glucose Urine UA Negative (Negative); Ketones Urine Trace (Negative); Leukocyte Esterase Urine Negative (Negative); Nitrite Urine Negative (Negative); Protein Urine Negative (Negative); Specific Gravity Urine 1.012 (1.000-1.030); Urobilinogen Urine Negative (Negative); pH Urine 5.5 (4.5-7.5)
--- NOTE | 2023-06-26 13:17 | Electrocardiogram Report ---
Test Reason : Blood Pressure : / mmHG Vent. Rate : 062 BPM Atrial Rate : 062 BPM P-R Int : 168 ms QRS Dur : 088 ms QT Int : 476 ms P-R-T Axes : 102 -47 -15 degrees QTc Int : 483 ms Normal sinus rhythm Left anterior fascicular block Nonspecific T wave abnormality Abnormal ECG When compared with ECG of 02-DEC-2007 07:21, Left anterior fascicular block is now Present Non-specific change in ST segment in Anterior leads T wave inversion now evident in Inferior leads T wave inversion now evident in Anterior leads Confirmed by Noe Erwin ([id number]) on 06/26/2023 1:17:01 PM Referred By: REFERRED SELF Confirmed By:Noe Erwin
--- NOTE | 2023-06-26 13:46 | Communication Note ---
Date of Service: June 26, 2023 please refer to the H&P dictated earlier this morning for details of presentation on admission. In brief, the patient was walking her dog and she may have tripped over the leash and fell face first on the ground. she passed out. Her neighbors called 911 and that she presented to the emergency room. All imaging studies are negative for fractures or dislocations. She has a facial bruise. This morning she is still not feeling well enough to go home and would like to stay for another day.
[2023-06-27] MEDS: ACETAMINOPHEN 325 MG TAB PO PRN (05:43)
[2023-06-27] MEDS: LEVOTHYROXINE SODIUM 50 MCG TABLET PO SCH (05:43)
[2023-06-27 06:41] LABS: Hematocrit (blood only) 39.8 % (37.0-47.0); Hemoglobin 14.1 g/dl (12.0-16.0); Mean Corpuscular Hemoglobin 34.1 pg (25.0-34.0); Mean Corpuscular Hgb Conc 35.4 g/dL (32.0-36.0); Mean Corpuscular Volume 96.1 fL (80.0-100.0); Mean Platelet Volume 11.2 fL (9.4-12.4); Platelet Count 177 K/uL (130-400); RDW Coefficient of Variation 13.8 % (11.5-14.5); RDW Standard Deviation 49.1 fL (36.4-46.3); Red Blood Count 4.14 M/uL (4.20-5.40); White Blood Count 5.88 K/ul (4.8-10.8)
[2023-06-27 07:10] LABS: BUN Creatinine Ratio 15.5 (10-20); Calcium 9.3 mg/dl (8.6-10.3); Creatinine Clr Calc Pharmacy 39.6 ml/min; Est GFR (African American) 56.1 ml/min; Est GFR (Non-African American) 48.4 ml/min; Potassium 3.8 mmol/L (3.5-5.1)
[2023-06-27] MEDS: dilTIAZem HCL 240 MG CAPCR PO SCH (07:51)
[2023-06-27] MEDS: VALSARTAN 80 MG TAB PO SCH (07:51)
[2023-06-27] MEDS: ESCITALOPRAM OXALATE 20 MG TAB PO SCH (07:51)
--- NOTE | 2023-06-27 13:23 | Discharge Summary ---
Discharge Summary Date of Service June 27, 2023 Notes For Next Care Provider Medication Changes From Visit Added acetaminophen 650mg po q4h prn pain Admission HPI Per Admitting Provider Laisha Paulino is a pleasant 77yo female with history of HTN, HLP presenting after a fall at home. She was walking her dog and thinks she may have tripped over the leash and fell face first into the mulch. Patient does not recall what happened afterwards but woke up in the ambulance. Her neighbors found her down and called 911. Patient denies chest pain, cough, SOB. Denies abdominal pain, nausea, vomiting or diarrhea. She is active and independent at baseline. Does not fall frequently. Principal Dx & Hospital Course #1 = Principal Diagnosis (1) Concussion with loss of consciousness: 77yo female presenting after a fall at home after tripping while walking dog, loss of consciousness. Patient lives at home with her who is currently in [facility]. CT head, cervical spine, face, and right hand xray without fractures but with soft tissue contusion of face ECG with TWIs inf and ant leads similar to previous Not suspicious for cardiac syncope. Pt feeling very well prior to walk and thinks the dog crossed in front of her and she tripped -Ice to affected area -Tylenol as needed for pain -stable for dc to home -concussion precautions given to rest physically and mentally until seen by PCP, no driving (2) HTN (hypertension): Chronic. BPs mildly elevated here -Continue Valsartan (3) Contusion of right shoulder: bruise right shoulder, no treatment (4) Contusion of hand, right: ice hand , elevate, wound care with dorsal hand abrasions (5) Laceration of lip: local wound care, no sutures needed (6) Contusion of face: ice packs, tylenol prn (7) CHI (closed head injury): as above (8) Hypothyroidism (acquired): TSH here normal continue LT4 (9) Depression with anxiety: continue Lexapro false low Ca++ and hyperkalemia on iSTAT and normal on serum chemistry-no further treatment Plan Dispo-stable for dc to home AMbulating around room independently, no further dizziness, minimal facial pain Discharge Exam Constitutional WD/WN, vitals as above Eyes PERRL, conjunctivae normal, anicteric sclerae ENMT right side of fface with ecchymosis, edema EOMI without pain OP clear small lac upper lip, scabbed over Respiratory normal respiratory effort, lungs clear to auscultation Cardiovascular RRR, no murmur, no edema Gastrointestinal (Abdomen) normal bowel sounds, soft, nontender, no hepatosplenomegaly Musculoskeletal right hand with ecchymosis, 2 small open abrasions dorsal hand, no surrounding erythema mild edema right fingers Psychiatric Orientation: alert, oriented x 3 and cooperative Updated Medication List Medication Instructions Recorded Confirmed Type cholecalciferol (vitamin D3) 50 2,000 units PO DAILY #30 tabs 07/03/19 06/25/23 History mcg (2,000 unit) tablet folic acid 1 mg tablet 1 mg PO DAILY 03/27/21 06/25/23 History lactobacillus combination no.4 3 3,000 mmu cells PO DAILY #30 caps 10/07/21 06/25/23 Rx billion cell capsule (Probiotic) desonide 0.05 % topical ointment 1 applic topical BID PRN Skin 03/08/22 06/25/23 History Irritation #1 g diltiazem HCl 240 mg capsule,24 240 mg PO DAILY #90 caps 08/19/22 06/25/23 Rx hr,extended release valsartan 80 mg tablet 80 mg PO DAILY #90 tabs 08/19/22 06/25/23 Rx escitalopram oxalate 20 mg tablet 20 mg PO DAILY #90 tabs 06/09/23 06/25/23 Rx acetaminophen 325 mg tablet 650 mg (2 x 325 mg) PO Q4H PRN 06/27/23 Rx pain #30 tabs levothyroxine 50 mcg tablet 50 mcg PO DAILY #90 tabs 06/27/23 Rx Hospital Stay Data Consultations 06/26/23 00:55 ED Decision to Admit Stat Diagnostic Imagining Performed 06/25/23 20:39 CT head/brain wo con Stat 06/25/23 20:53 CT cervical spine wo con Stat CT facial bones wo con Stat Pending Results Patient Have Any Pending Studies at Discharge: No Discharge Instructions Given to Patient (Per Discharging Provider) You can use ice packs to reduce swelling in your face and right hand. You can take tylenol or ibuprofen as needed for pain. You should not exert yourself physically or mentally over light walking until seen by your PCP and cleared to do so because of your mild concussion. Total Time Total Time Spent Total Time Spent (In Minutes): 35 min Coding Level of Care Code 86985 INP/OBS DISCH >30 MIN Diagnoses Concussion with loss of consciousness S06.0X9A HTN (hypertension) I10 Contusion of right shoulder S40.011A Contusion of hand, right S60.221A Laceration of lip S01.511A Contusion of face S00.83XA CHI (closed head injury) S09.90XA Hypothyroidism (acquired) E03.9 Depression with anxiety F41.8
== END 2023-06-27 14:31 | disposition home or self-care (01) ==
LOC: 3E 20:15 → ED 20:15 → SUATTDRO 06-26 00:51 → 3E 06-26 02:15

== ENCOUNTER 2024-01-04 21:32 | Observation (INO) ==
[2024-01-04] MEDS: SODIUM CHLORIDE 0.9% 1,000 ML IV SCH (22:08)
[2024-01-04] MEDS: ONDANSETRON INJ 2 MG/ML 2 ML VIAL IV STA (22:09)
[2024-01-04] MEDS: FAMOTIDINE 20MG IV PUSH 20 MG/5 ML SYR IV STA (22:09)
[2024-01-04] MEDS: MoRPHine SULFATE 2 MG/ML CARP IV STA (22:10)
[2024-01-04 22:11] LABS: Basophils # (auto) 0.02 K/uL (0.00-0.20); Basophils % (auto) 0.2 %; Hematocrit (blood only) 43.8 % (37.0-47.0); Hemoglobin 15.5 g/dl (12.0-16.0); Immature Granulocytes # (auto) 0.13 K/uL (0.01-0.20); Immature Granulocytes % (auto) 1.3 %; Lymphocytes # (auto) 1.13 K/uL (1.20-3.40); Lymphocytes % (auto) 11.4 %; Mean Corpuscular Hemoglobin 34.6 pg (25.0-34.0); Mean Corpuscular Hgb Conc 35.4 g/dL (32.0-36.0); Mean Corpuscular Volume 97.8 fL (80.0-100.0); Mean Platelet Volume 11.3 fL (9.4-12.4); Monocytes # (auto) 0.54 K/uL (0.11-0.59); Monocytes % (auto) 5.5 %; Neutrophils # (auto) 8.06 K/uL (1.40-6.50); Neutrophils % (auto) 81.6 %; Platelet Count 229 K/uL (130-400); RDW Standard Deviation 50.7 fL (36.4-46.3); Red Blood Count 4.48 M/uL (4.20-5.40); White Blood Count 9.88 K/ul (4.8-10.8)
[2024-01-04 22:27] LABS: Albumin Globulin Ratio 1.2 (0.9-2); Albumin Level 4.5 gm/dl (3.4-5.0); BUN Creatinine Ratio 21.6 (10-20); Bilirubin,Total 0.3 mg/dl (0.2-1.0); Calcium 10.1 mg/dl (8.6-10.3); Est GFR (African American) 52.2 ml/min; Est GFR (Non-African American) 45.1 ml/min; Globulin 3.8 gm/dl (2.5-4.0); Potassium 4.2 mmol/L (3.5-5.1); Total Protein 8.3 gm/dl (6.0-8.3)
[2024-01-05] MEDS: OPTIRAY 320 125ml IV ONE (00:56)
--- NOTE | 2024-01-05 01:37 | Ultrasound Report ---
Exam(s): US GALLBLADDER EXAM: US Abdomen Limited, Gallbladder CLINICAL HISTORY: Reason for exam: epigastric pain, after fatty dinner. TECHNIQUE: Real-time ultrasound of the right upper quadrant with image documentation. COMPARISON: No relevant prior studies available. FINDINGS: Liver: Heterogeneous appearance of the liver. Multiple liver calcifications/granulomas. Gallbladder: Negative sonographic Ramos sign. Multiple gallbladder polyps. Likely also tiny gallstone. No gallbladder wall thickening or pericholecystic fluid. Common bile duct: Unremarkable as visualized. No stones. No dilation. Common bile duct measures 0.6 cm in diameter. Pancreas: Unremarkable as visualized. IMPRESSION: 1. Heterogeneous appearance of the liver. May reflect hepatic steatosis or other hepatic infiltrative process. 2. Multiple gallbladder polyps. Likely also tiny gallstone. No evidence of acute cholecystitis Electronically signed by: South Paredes M.D. 01/05/24 01:36 AM
--- NOTE | 2024-01-05 01:41 | Emergency Department Note ---
Impression & Plan HTN (hypertension), Epigastric abdominal pain, Pulmonary embolus ED Provider Note CHIEF COMPLAINT: Epigastric abdominal pain HISTORY OF PRESENT ILLNESS: This 78-year-old female patient with past medical history of concussion, hypothyroidism, UTI, osteoporosis, hypertension, hyperlipidemia presents emergency department with complaints of a sudden onset stabbing pain in the epigastric region. Patient states it woke her from sleep. She did not vomit. She has not had any recent fevers. The last thing that he ate was BBQ spareribs earlier in the day. Patient denies having any symptoms of nausea and abdominal pain prior to 915 tonight. Patient does mention that she has been on prednisone for a lumbar radiculopathy recently. REVIEW OF SYSTEMS: A review of systems was performed with positives and pertinent negatives listed in the history of present illness. 10 systems were reviewed and are otherwise negative. ALLERGIES: see below MEDICATIONS: see below PMH: see below SOCIAL HISTORY: see below DDx: Gastritis, peptic ulcer disease, aortic dissection, cholecystitis, pancreatitis among others. PHYSICAL EXAM: Vital signs reviewed. General: Well-appearing 78-year-old female, in no significant distress. HEENT: No scleral icterus, PERRLA, neck supple. Moist mucous membranes Cardiovascular: Regular rate and rhythm, no extra sounds. Pulmonary: Clear to auscultation bilaterally, normal work of breathing. Abdomen: Soft, non-tender to palpation in the epigastric region, nondistended, positive bowel sounds. Musculoskeletal: Atraumatic, no peripheral edema. Neurologic: Patient awake alert and oriented x 3, speech is clear Skin: Warm, dry, no rash EMERGENCY DEPARTMENT COURSE/MDM: This pt was evaluated and appeared to be in no distress. IV access was obtained and lab work was drawn. PT was placed on the patient monitor and noted to be in a sinus rhythm. EKG reveals no acute ischemia. Patient was medicated with IV morphine, IV Pepcid and IV Zofran for her discomfort. Patient's laboratory work is fairly reassuring. Her pain was not significantly resolved. CT angiogram of the chest was performed due to patient's hypertension and continued discomfort. There is no evidence of aortic dissection, there is a mild ascending aortic aneurysm with no evidence of leak. PE is noted in the right lower subsegmental artery. There is no evidence of acute cholecystitis on ultrasound. Patient's laboratory work is reassuring. I have consulted the hospitalist service, Dr. Galindo who requested that anticoagulation be held off until he evaluates her. Patient was made aware of the findings and plan and agreed. She will be evaluated for admission and further management. MONITORING: An order for cardiac monitoring was placed and the patient is noted to be in a sinus bradycardia at 66 beats per minute. RADIOLOGY: Chest x-ray to my interpretation reveals no evidence of focal lung consolidation or failure. Otherwise defer to radiology. Ultrasound of the gallbladder per radiology reveals: IMPRESSION: 1. Heterogeneous appearance of the liver. May reflect hepatic steatosis or other hepatic infiltrative process. 2. Multiple gallbladder polyps. Likely also tiny gallstone. No evidence of acute cholecystitis CT imaging of the chest: IMPRESSION: 1. Small pulmonary embolism within right lower lobe subsegmental artery. 2. Mildly aneurysmal ascending aorta 4.1 cm. No evidence of leak. 3. Coronary calcifications, notably of the left coronary arteries. 4. Mild compression deformities of the T7 and T10 vertebral bodies, age indeterminate. EKG: To my interpretation reveals a normal sinus rhythm at [address] segments. Left anterior fascicular block, nonspecific T wave abnormality. QTc is 459. No PVC, no PAC. No significant change from previous dated June 25, 2023 DISPOSITION:Admit Past Med/Surg History Problem List (Updated 01/07/24 @ 11:39 by Collette Reyes MD) Pulmonary embolus (Acute) Epigastric abdominal pain (Acute) Abdominal aortic aneurysm (AAA) 3.0 cm to 5.0 cm in diameter in female Polymyalgia Arthralgia of multiple sites Single subsegmental pulmonary embolism without acute cor pulmonale Pulmonary embolism on right Concussion with loss of consciousness (Acute) Contusion of right shoulder (Acute) Contusion of hand, right (Acute) Laceration of lip (Acute) Contusion of face (Acute) CHI (closed head injury) (Acute) Post menopausal problems Encounter for cosmetic procedure Hypothyroidism (acquired) Foul smelling urine (Acute) Elevated hemoglobin Vitamin D deficiency (Acute) Osteoporosis (Acute) Osteopenia (Acute) HTN (hypertension) (Chronic) Hyperlipidemia (Acute) Depression with anxiety (Acute) Breast hypertrophy in female (Acute) Actinic keratosis (Acute) Medical History Arthralgia of multiple sites SOB (shortness of breath) on exertion Lightheadedness Colitis Cough History of Clostridium difficile colitis Surgical History H/O cataract removal with insertion of prosthetic lens S/P tonsillectomy S/P partial colectomy S/P tooth extraction S/P knee surgery Family History Mother Diabetes Macular degeneration Grandmother (Maternal) Macular degeneration Family/Other Osteoporosis Other Myocardial infarction Denies family history of Ovarian cancer Prostate cancer Breast cancer Colorectal cancer Social History Smoking Status: Never smoker Second Hand Exposure: Yes ( smokes cigars); Do You Dip or Chew Tobacco: No; Hx Alcohol Use: Yes Alcohol type: beer and wine Hx Substance Use: No Preferred Language: Mexican Communication Ability: Effective Visual Impairment: No Limitations Hearing Ability: Normal Appliance Mechanic Required: No Beliefs That Will Affect Care: None marital status: Current Living Situation: Spouse current occupational status: retired Feels Safe at Home: Yes Childhood Exposure to Second-Hand Smoke: No Dental Care, Regularly: Yes Physical Activity Frequency: 3-4 Times per Week Seatbelt Use: always Sunscreen Use: Yes Assistive Devices: None Allergies Allergies Allergy/AdvReac Type Severity Reaction Status Date / Time clindamycin Allergy Unknown CAN'T Verified 01/05/24 08:11 REMEMBER codeine Allergy Unknown CAN'T Verified 01/05/24 08:11 REMEMBER oxycodone Allergy Unknown CAN'T Verified 01/05/24 08:11 REMEMBER Penicillins Allergy Unknown CAN'T Verified 01/05/24 08:11 REMEMBER sulfamethoxazole Allergy Unknown CAN'T Verified 01/05/24 08:11 [From Bactrim] REMEMBER Tetracyclines Allergy Unknown CAN'T Verified 01/05/24 08:11 REMEMBER trimethoprim [From Bactrim] Allergy Unknown CAN'T Verified 01/05/24 08:11 REMEMBER Home Meds Home Medications Medication Instructions Recorded Confirmed cholecalciferol (vitamin D3) 50 2,000 units PO DAILY #30 tabs 07/03/19 01/05/24 mcg (2,000 unit) tablet folic acid 1 mg tablet 1 mg PO DAILY 03/27/21 01/05/24 ibuprofen 200 mg tablet 200 mg PO Q6H PRN pain/fever 12/24/23 01/05/24 lbizjwyv-ciq-jbkyqz 5 mg-zeaxanth 1 cap PO DAILY 01/05/24 01/05/24 1 mg-bilberry 7.5 mg-herbal capsule (Macular Health Formula) Previous Rx's Medication Instructions Recorded lactobacillus combination no.4 3 3,000 mmu cells PO DAILY #30 caps 10/07/21 billion cell capsule (Probiotic) escitalopram oxalate 20 mg tablet 20 mg PO DAILY #90 tabs 06/09/23 levothyroxine 50 mcg tablet 50 mcg PO DAILY #90 tabs 06/27/23 diltiazem HCl 240 mg capsule,24 240 mg PO DAILY #90 caps 08/15/23 hr,extended release valsartan 80 mg tablet 80 mg PO DAILY #90 tabs 08/15/23 prednisone 10 mg tablet 10 mg PO .COMPLEX back pain #30 12/29/23 tabs apixaban 5 mg tablet (Eliquis) 5 mg PO BID #70 tabs 01/06/24 Results & Data (ED) Vital Signs Vital Signs - 24 hr 01/04/24 21:37 01/04/24 21:45 01/04/24 21:48 Temperature 36.9 C Temperature Source Temporal Artery Scan Pulse Rate 69 66 60 Pulse Rate [Finger] Pulse Rate from SpO2 Sensor Pulse Rhythm Regular Pulse Rhythm [Finger] Pulse Strength [Finger] Respiratory Rate 20 20 Respiratory Effort / Characteristics Non-Labored Spontaneous Respiratory Depth Normal Blood Pressure 161/92 H Blood Pressure [Left Arm] Blood Pressure Mean 115 Blood Pressure Mean [Left Arm] Blood Pressure Position [Left Arm] Pulse Oximetry 96 92 Oxygen Delivery Method Room Air Room Air Oxygen Flow Rate Sepsis Recent Fever Within 48 Hours No Sepsis New/Unexplained Change in Mental Status No Sepsis Action Taken by Nursing No Action Required Oxygen Flow Rate - Titration Pulse Oximetry Post Tiitration 01/04/24 21:49 01/04/24 22:04 01/04/24 23:06 Temperature Temperature Source Pulse Rate 58 L Pulse Rate [Finger] 60 Pulse Rate from SpO2 Sensor Pulse Rhythm Pulse Rhythm [Finger] Regular Pulse Strength [Finger] Normal Respiratory Rate 20 18 Respiratory Effort / Characteristics Non-Labored Spontaneous Respiratory Depth Normal Blood Pressure Blood Pressure [Left Arm] 168/94 H Blood Pressure Mean Blood Pressure Mean [Left Arm] 118 Blood Pressure Position [Left Arm] Sitting Pulse Oximetry 92 86 L 98 Oxygen Delivery Method Room Air Room Air Nasal Cannula Room Air Oxygen Flow Rate 0 Sepsis Recent Fever Within 48 Hours Sepsis New/Unexplained Change in Mental Status Sepsis Action Taken by Nursing Oxygen Flow Rate - Titration 3 Pulse Oximetry Post Tiitration 96 01/05/24 00:15 01/05/24 01:03 01/05/24 01:27 Temperature Temperature Source Pulse Rate 59 L Pulse Rate [Finger] 88 52 L Pulse Rate from SpO2 Sensor 59 L Pulse Rhythm Pulse Rhythm [Finger] Pulse Strength [Finger] Respiratory Rate 16 17 18 Respiratory Effort / Characteristics Respiratory Depth Blood Pressure Blood Pressure [Left Arm] 152/88 H Blood Pressure Mean Blood Pressure Mean [Left Arm] 109 Blood Pressure Position [Left Arm] Pulse Oximetry 93 93 97 Oxygen Delivery Method Room Air Room Air Nasal Cannula Oxygen Flow Rate 2 Sepsis Recent Fever Within 48 Hours Sepsis New/Unexplained Change in Mental Status Sepsis Action Taken by Nursing Oxygen Flow Rate - Titration Pulse Oximetry Post Tiitration Home Medications Current Medication List: was personally reviewed by me Laboratory Data Attestation: I reviewed the patient's lab results. 01/06/24 05:35 01/06/24 05:35 Lab Results 01/04/24 Range/Units Unknown WBC 9.88 (4.8-10.8) K/ul RBC 4.48 (4.20-5.40) M/uL Hgb 15.5 (12.0-16.0) g/dl Hct 43.8 (37.0-47.0) % MCV 97.8 (80.0-100.0) fL MCH 34.6 H (25.0-34.0) pg MCHC 35.4 (32.0-36.0) g/dL RDW Std Deviation 50.7 H (36.4-46.3) fL RDW Coeff of Ciarra 14.0 (11.5-14.5) % Plt Count 229 (130-400) K/uL MPV 11.3 (9.4-12.4) fL Immature Gran % (Auto) 1.3 % Neut % (Auto) 81.6 % Lymph % (Auto) 11.4 % Hartley % (Auto) 5.5 % Eos % (Auto) 0.0 % Baso % (Auto) 0.2 % Neut # (Auto) 8.06 H (1.40-6.50) K/uL Lymph # (Auto) 1.13 L (1.20-3.40) K/uL Hartley # (Auto) 0.54 (0.11-0.59) K/uL Eos # (Auto) 0.00 (0.00-0.50) K/uL Baso # (Auto) 0.02 (0.00-0.20) K/uL Immature Gran # (Auto) 0.13 (0.01-0.20) K/uL PT 10.3 (9.0-12.0) Seconds INR 0.9 (0.9-1.1) APTT 24 (21-31) Seconds PTT Ratio 0.9 Sodium 137 (136-145) mmol/L Potassium 4.2 (3.5-5.1) mmol/L Chloride 104 (98-107) mmol/L Carbon Dioxide 20 L (21-32) mmol/L Anion Gap 13 H (3-11) BUN 25 H (6-23) mg/dl Creatinine 1.16 (0.6-1.2) mg/dl Est Cr Clr Drug Dosing 37.0 ml/min Est GFR ( Amer) 52.2 ml/min Est GFR (Non-Af Amer) 45.1 ml/min BUN/Creatinine Ratio 21.6 H (10-20) Glucose 106 H (70-99(Fasting)) mg/dl Calcium 10.1 (8.6-10.3) mg/dl Total Bilirubin 0.3 (0.2-1.0) mg/dl AST 21 (13-39) U/L ALT 21 (7-52) U/L Alkaline Phosphatase 89 (34-104) U/L Troponin I High Sens 6.0 (0-14) pg/ml Total Protein 8.3 (6.0-8.3) gm/dl Albumin 4.5 (3.4-5.0) gm/dl Globulin 3.8 (2.5-4.0) gm/dl Albumin/Globulin Ratio 1.2 (0.9-2) Lipase 54 (11-82) U/L Administered Medications Discontinued Medications Acetaminophen (Acetaminophen 500 Mg Tab) 1,000 mg PO Q8H PRN PRN Reason: Pain or Fever Stop: 02/04/24 05:32 Last Admin: 01/05/24 21:10 Dose: 1,000 mg Documented By: SUNSHINE Apixaban (Apixaban 5 Mg Tablet) 10 mg PO BID ANSELMO Stop: 01/12/24 09:01 Last Admin: 01/06/24 07:35 Dose: 10 mg Documented By: Admin: 01/05/24 20:41 Dose: 10 mg Documented By: Admin: 01/05/24 10:55 Dose: 10 mg Documented By: МАРИЯ Apixaban (Apixaban 5 Mg Tablet) 10 mg PO ONE ONE Stop: 01/06/24 14:31 Last Admin: 01/06/24 14:29 Dose: 10 mg Documented By: JENI Diltiazem HCl (Diltiazem Hcl 240 Mg Capcr) 240 mg PO DAILY ANSELMO Stop: 02/04/24 08:59 Last Admin: 01/06/24 07:34 Dose: 240 mg Documented By: Admin: 01/05/24 08:25 Dose: Not Given Documented By: МАРИЯ Escitalopram Oxalate (Escitalopram Oxalate 20 Mg Tab) 20 mg PO DAILY ANSELMO Stop: 02/04/24 08:59 Last Admin: 01/06/24 07:36 Dose: 20 mg Documented By: Admin: 01/05/24 08:23 Dose: 20 mg Documented By: МАРИЯ Folic Acid (Folic Acid 1 Mg Tab) 1 mg PO DAILY ANSELMO Stop: 02/04/24 08:59 Last Admin: 01/06/24 07:35 Dose: 1 mg Documented By: Admin: 01/05/24 08:23 Dose: 1 mg Documented By: МАРИЯ Famotidine (Pepcid 20mg Iv Push) 20 mg in 5 mls @ 2.5 mls/min IV NOW STA Stop: 01/04/24 22:03 Last Admin: 01/04/24 22:09 Dose: 2.5 mls/min Documented By: FRANK Sodium Chloride (Nss) 1,000 mls @ 125 mls/hr IV .Q8H ANSELMO Stop: 02/03/24 22:14 Last Infusion: 01/05/24 05:46 Dose: Infused Documented By: Admin: 01/04/24 22:08 Dose: 125 mls/hr Documented By: FRANK Heparin Sodium/Dextrose (Heparin Sodium/Dextrose) 25,000 units in 500 mls @ 14 mls/hr IV .Q24H ANSELMO; Protocol Stop: 02/04/24 03:29 Last Titration: 01/05/24 12:43 Dose: Infused Documented By: МАРИЯ Co-signed By: LILA Titration: 01/05/24 12:33 Dose: 0 units/hr, 0 mls/hr Documented By: МАРИЯ Co-signed By: CASH Admin: 01/05/24 03:30 Dose: 700 units/hr, 14 mls/hr Documented By: DAVIAN Co-signed By: VINICIO Ioversol (Optiray 320 125ml) 125 ml IV ONCE ONE Stop: 01/05/24 00:56 Last Admin: 01/05/24 00:56 Dose: 118 ml Documented By: BINH Levothyroxine Sodium (Levothyroxine Sodium 50 Mcg Tablet) [facility] Stop: 02/04/24 06:29 Last Admin: 01/06/24 05:49 Dose: 50 mcg Documented By: Admin: 01/05/24 06:45 Dose: 50 mcg Documented By: DAVIAN Morphine Sulfate (Morphine Sulfate 2 Mg/Ml Carp) 2 mg IV NOW STA Stop: 01/04/24 22:03 Last Admin: 01/04/24 22:10 Dose: 2 mg Documented By: FRANK Ondansetron HCl (Ondansetron Inj 2 Mg/Ml 2 Ml Vial) 4 mg IV NOW STA Stop: 01/04/24 22:03 Last Admin: 01/04/24 22:09 Dose: 4 mg Documented By: FRANK Pantoprazole Sodium (Pantoprazole 40 Mg Tab) 40 mg PO [facility] Stop: 02/04/24 08:59 Last Admin: 01/06/24 09:48 Dose: 40 mg Documented By: Admin: 01/05/24 08:26 Dose: 40 mg Documented By: МАРИЯ Valsartan (Valsartan 80 Mg Tab) 80 mg PO DAILY [facility] Stop: 02/04/24 08:59 Last Admin: 01/06/24 07:35 Dose: 80 mg Documented By: Admin: 01/05/24 08:22 Dose: 80 mg Documented By: МАРИЯ Vitamin D (Cholecalciferol 25 Mcg (1000 Units) Tab) 50 mcg PO DAILY [facility] Stop: 02/04/24 08:59 Last Admin: 01/06/24 07:35 Dose: 50 mcg Documented By: Admin: 01/05/24 09:56 Dose: 50 mcg Documented By: E Imaging Data Radiologist's Impression: Chest X-Ray 01/04/24 21:46 XR chest 1V portable CLINICAL HISTORY: Chest pain, nonspecific TECHNIQUE: Single frontal radiograph of the chest was obtained. Comparison: Comparison is made to chest radiograph 08/13/2021 FINDINGS: No lines and tubes are seen. Calcified aortic knob is seen. The lungs are clear. No evidence of pleural effusion or pneumothorax. IMPRESSION: No acute chest disease. ACT 112: Negative or not required by law. Electronically signed by: Bo Jett M.D. 01/05/2024 8:16 AM Gallbladder Ultrasound 01/04/24 22:01 Exam(s): US GALLBLADDER EXAM: US Abdomen Limited, Gallbladder CLINICAL HISTORY: Reason for exam: epigastric pain, after fatty dinner. TECHNIQUE: Real-time ultrasound of the right upper quadrant with image documentation. COMPARISON: No relevant prior studies available. FINDINGS: Liver: Heterogeneous appearance of the liver. Multiple liver calcifications/granulomas. Gallbladder: Negative sonographic Ramos sign. Multiple gallbladder polyps. Likely also tiny gallstone. No gallbladder wall thickening or pericholecystic fluid. Common bile duct: Unremarkable as visualized. No stones. No dilation. Common bile duct measures 0.6 cm in diameter. Pancreas: Unremarkable as visualized. IMPRESSION: 1. Heterogeneous appearance of the liver. May reflect hepatic steatosis or other hepatic infiltrative process. 2. Multiple gallbladder polyps. Likely also tiny gallstone. No evidence of acute cholecystitis Electronically signed by: South Paredes M.D. 01/05/24 01:36 AM Chest CTA 01/05/24 00:40 CR Exam(s): CTA CHEST W/WO Contrast IV Amt: 118 ml optiray 320 EXAM: CT Angiography Chest Without and With Intravenous Contrast CLINICAL HISTORY: Reason for exam: mid epigastric stabbing, sudden. TECHNIQUE: Axial computed tomographic angiography images of the chest without and with intravenous contrast. CTDI is 21.43 mGy and DLP is 1302.94 mGy-cm. Automated exposure control was utilized for the study. A dose lowering technique was utilized adhering to the principles of ALARA. MIP reconstructed images were created and reviewed. CONTRAST: Patient received 118 ml optiray 320 of IV contrast COMPARISON: CT abdomen and pelvis 02/14/2014 FINDINGS: Pulmonary arteries: Small pulmonary embolism within right lower lobe subsegmental artery. Series 7 image 138. Aorta: Mildly aneurysmal ascending aorta 4.1 cm. No evidence of leak. Atherosclerotic plaque and calcifications throughout the descending thoracic aorta, increased since the 2014 CT abdomen pelvis study. Lungs: Right lower lobe calcified granulomas. Bibasilar atelectasis. No mass. Pleural space: Unremarkable. No significant effusion. No pneumothorax. Heart: Coronary calcifications, notably of the left coronary arteries. Small pericardial effusion or thickening. No cardiomegaly. No evidence of RV dysfunction. Mediastinum: Calcified granulomatous mediastinal and bilateral hilar nodes. Bones/joints: Mild compression deformities of the T7 and T10 vertebral bodies, age indeterminate. No dislocation. Soft tissues: Unremarkable. Lymph nodes: See above. No enlarged nodes. Liver: Calcified liver granulomas. Spleen: Calcified splenic granulomas. IMPRESSION: 1. Small pulmonary embolism within right lower lobe subsegmental artery. 2. Mildly aneurysmal ascending aorta 4.1 cm. No evidence of leak. 3. Coronary calcifications, notably of the left coronary arteries. 4. Mild compression deformities of the T7 and T10 vertebral bodies, age indeterminate. Communications: Call Doctor Pulmonary Embolism Electronically signed by: South Paredes M.D. 01/05/24 02:07 AM Venous Doppler Study 01/05/24 02:25 Exam(s): US VENOUS BILATERAL LOWER EXTREMITIES EXAM: US Duplex Bilateral Lower Extremities Veins CLINICAL HISTORY: Reason for exam: DVT. TECHNIQUE: Real-time duplex ultrasound scan of the bilateral lower extremity veins integrating B-mode two-dimensional vascular structure, Doppler spectral analysis, color flow Doppler imaging and compression. COMPARISON: No relevant prior studies available. FINDINGS: Right deep veins: Unremarkable. No DVT in the right common femoral, femoral, proximal deep femoral or popliteal veins. The veins demonstrate normal color flow, are normally compressible, with normal phasic flow and/or augmentation response. Right superficial veins: Unremarkable. No thrombus in the visualized right great saphenous vein. Left deep veins: Unremarkable. No DVT in the left common femoral, femoral, proximal deep femoral or popliteal veins. The veins demonstrate normal color flow, are normally compressible, with normal phasic flow and/or augmentation response. Left superficial veins: Unremarkable. No thrombus in the visualized left great saphenous vein. Soft tissues: No acute findings. No popliteal cyst. IMPRESSION: No evidence of DVT in bilateral lower extremities. Electronically signed by: [place] Paredes M.D. 01/05/24 05:54 AM Discharge Plan Visit Data Chief Complaint: Cardiac Assessment Stated Complaint: CHEST PAINS ED Provider: Collette Reyes Discharge Problem: HTN (hypertension), Epigastric abdominal pain, Pulmonary embolus Patient Disposition: Admitted As Inpatient Discharge Instructions Interventions: ED Discharge Assessment Last Done: 01/05/24 15:49 Discharge Problem: HTN (hypertension) Qualifiers: Hypertension type: primary hypertension Qualified Code(s): I10 - Essential (primary) hypertension Pulmonary embolus Qualifiers: Pulmonary embolism type: unspecified Chronicity: acute Acute cor pulmonale presence: without acute cor pulmonale Qualified Code(s): I26.99 - Other pulmonary embolism without acute cor pulmonale
--- NOTE | 2024-01-05 02:07 | CT Scan Report ---
Exam(s): CTA CHEST W/WO Contrast IV Amt: 118 ml optiray 320 EXAM: CT Angiography Chest Without and With Intravenous Contrast CLINICAL HISTORY: Reason for exam: mid epigastric stabbing, sudden. TECHNIQUE: Axial computed tomographic angiography images of the chest without and with intravenous contrast. CTDI is 21.43 mGy and DLP is 1302.94 mGy-cm. Automated exposure control was utilized for the study. A dose lowering technique was utilized adhering to the principles of ALARA. MIP reconstructed images were created and reviewed. CONTRAST: Patient received 118 ml optiray 320 of IV contrast COMPARISON: CT abdomen and pelvis 02/14/2014 FINDINGS: Pulmonary arteries: Small pulmonary embolism within right lower lobe subsegmental artery. Series 7 image 138. Aorta: Mildly aneurysmal ascending aorta 4.1 cm. No evidence of leak. Atherosclerotic plaque and calcifications throughout the descending thoracic aorta, increased since the 2013 CT abdomen pelvis study. Lungs: Right lower lobe calcified granulomas. Bibasilar atelectasis. No mass. Pleural space: Unremarkable. No significant effusion. No pneumothorax. Heart: Coronary calcifications, notably of the left coronary arteries. Small pericardial effusion or thickening. No cardiomegaly. No evidence of RV dysfunction. Mediastinum: Calcified granulomatous mediastinal and bilateral hilar nodes. Bones/joints: Mild compression deformities of the T7 and T10 vertebral bodies, age indeterminate. No dislocation. Soft tissues: Unremarkable. Lymph nodes: See above. No enlarged nodes. Liver: Calcified liver granulomas. Spleen: Calcified splenic granulomas. IMPRESSION: 1. Small pulmonary embolism within right lower lobe subsegmental artery. 2. Mildly aneurysmal ascending aorta 4.1 cm. No evidence of leak. 3. Coronary calcifications, notably of the left coronary arteries. 4. Mild compression deformities of the T7 and T10 vertebral bodies, age indeterminate. Communications: Call Doctor Pulmonary Embolism Electronically signed by: South Paredes M.D. 01/05/24 02:07 AM
[2024-01-05 02:46] LABS: INR 0.9 (0.9-1.1); Partial Thromboplastin Ratio 0.9; Partial Thromboplastin Time 24 Seconds (21-31); Prothrombin Time 10.3 Seconds (9.0-12.0)
[2024-01-05] MEDS ORDERED: Heparin IV Adult Wt-Based Low-Dose *NO* INITIAL Bolus Protocol IV STA (03:01)
--- NOTE | 2024-01-05 03:03 | History & Physical Report ---
Date of Service January 05, 2024 Assessment & Plan (1) Pulmonary embolism on right: (2) Single subsegmental pulmonary embolism without acute cor pulmonale: (3) Hypothyroidism (acquired): (4) HTN (hypertension): (5) Depression with anxiety: (6) Polymyalgia: (7) Arthralgia of multiple sites: Plan Small subsegmental PE RLL subsegmental artery- As noted on CTA PE study Venous Doppler of bilateral lower extremities ordered and pending Unclear whether this is the cause of her acute, now resolved severe epigastric pain, but her clinical examination does not support it Start heparin low-dose standard protocol without bolus Polymyalgia/polyarthralgias/acute exacerbation of low back pain- Patient had been placed on prednisone tapering schedule about 3 days ago, and had significant improvement of the symptoms, suggesting a possible diagnosis of PMR She reports that the prednisone helped significantly more than either meloxicam or ibuprofen This can be further addressed in the outpatient setting Check an ESR, rheumatoid factor and KIP Epigastric pain- Patient had been using ibuprofen every few days for low back pain, but has been on prednisone twice daily dosing for the past 3 days. Question whether her acute epigastric pain may have been associated with GI distress secondary to NSAIDs/steroids Will start pantoprazole 40 mg p.o. daily AAA 4.1 cm/hypertension- Noted on CTA chest Continue valsartan and diltiazem Will need to have scheduled follow-up studies History of Present Illness Chief Complaint: The patient presents to the ED due to the persistence for greater than 5 minutes of severe acute epigastric pain that awoke her from sleep. Primary Care Provider: Noe Jameson MD The patient is a 78yo female with PMH including hypothyroidism, UTI, HTN, HLD, depression with anxiety, vitamin D deficiency and low back pain with generalized myalgias. The patient presents to the emergency department due to acute onset of severe epigastric pain, that when persisted for greater than 5 minutes, she told family that she needed to be brought to the emergency department for assessment. Patient reports a recent flareup of low back pain, for which she was placed on a prednisone taper by her PCP, which she is presently on day 3. Previous to that she had taken intermittent dosages of ibuprofen, which she preferred to meloxicam, which she reports had no significant improvement. She reports that at this time while on the prednisone, her back pain has resolved and she reports that all the generalized myalgias that she did not know she had are now resolved as well. Allergies Allergy/AdvReac Type Severity Reaction Status Date / Time clindamycin Allergy Unknown CAN'T Verified 12/29/23 09:25 REMEMBER codeine Allergy Unknown CAN'T Verified 12/29/23 09:25 REMEMBER oxycodone Allergy Unknown CAN'T Verified 12/29/23 09:25 REMEMBER Penicillins Allergy Unknown CAN'T Verified 12/29/23 09:25 REMEMBER sulfamethoxazole Allergy Unknown CAN'T Verified 12/29/23 09:25 [From Bactrim] REMEMBER Tetracyclines Allergy Unknown CAN'T Verified 12/29/23 09:25 REMEMBER trimethoprim [From Bactrim] Allergy Unknown CAN'T Verified 12/29/23 09:25 REMEMBER Home Medications Medication Instructions Recorded Confirmed Type cholecalciferol (vitamin D3) 50 2,000 units PO DAILY #30 tabs 07/03/19 12/29/23 History mcg (2,000 unit) tablet folic acid 1 mg tablet 1 mg PO DAILY 03/27/21 12/29/23 History lactobacillus combination no.4 3 3,000 mmu cells PO DAILY #30 caps 10/07/21 12/29/23 Rx billion cell capsule (Probiotic) desonide 0.05 % topical ointment 1 applic topical BID PRN Skin 03/08/22 12/29/23 History Irritation #1 g escitalopram oxalate 20 mg tablet 20 mg PO DAILY #90 tabs 06/09/23 12/29/23 Rx levothyroxine 50 mcg tablet 50 mcg PO DAILY #90 tabs 06/27/23 12/29/23 Rx diltiazem HCl 240 mg capsule,24 240 mg PO DAILY #90 caps 08/15/23 12/29/23 Rx hr,extended release valsartan 80 mg tablet 80 mg PO DAILY #90 tabs 08/15/23 12/29/23 Rx meloxicam 7.5 mg tablet 7.5 mg PO DAILY PRN pain #30 tabs 12/15/23 12/29/23 Rx ibuprofen 200 mg tablet 200 mg PO Q6H PRN 12/24/23 12/29/23 History prednisone 10 mg tablet 10 mg PO .COMPLEX back pain #30 12/29/23 12/29/23 Rx tabs Past Med/Surg History Problem List (Updated 01/05/24 @ 04:56 by August Pearson MD) Polymyalgia Arthralgia of multiple sites Single subsegmental pulmonary embolism without acute cor pulmonale Pulmonary embolism on right Concussion with loss of consciousness (Acute) Contusion of right shoulder (Acute) Contusion of hand, right (Acute) Laceration of lip (Acute) Contusion of face (Acute) CHI (closed head injury) (Acute) Post menopausal problems Encounter for cosmetic procedure Hypothyroidism (acquired) Foul smelling urine (Acute) Elevated hemoglobin Vitamin D deficiency (Acute) Osteoporosis (Acute) Osteopenia (Acute) HTN (hypertension) (Chronic) Hyperlipidemia (Acute) Depression with anxiety (Acute) Breast hypertrophy in female (Acute) Actinic keratosis (Acute) Medical History Arthralgia of multiple sites SOB (shortness of breath) on exertion Lightheadedness Colitis Cough History of Clostridium difficile colitis Surgical History H/O cataract removal with insertion of prosthetic lens S/P tonsillectomy S/P partial colectomy S/P tooth extraction S/P knee surgery Family History Mother Diabetes Macular degeneration Grandmother (Maternal) Macular degeneration Family/Other Osteoporosis Other Myocardial infarction Denies family history of Ovarian cancer Prostate cancer Breast cancer Colorectal cancer Social History Smoking Status: Never smoker Second Hand Exposure: Yes ( smokes cigars); Do You Dip or Chew Tobacco: No; Hx Alcohol Use: No Hx Substance Use: No Preferred Language: [place] Communication Ability: Effective Visual Impairment: No Limitations Hearing Ability: Normal Dye House Supervisor Required: No marital status: Current Living Situation: Spouse current occupational status: retired Feels Safe at Home: Yes Childhood Exposure to Second-Hand Smoke: No Dental Care, Regularly: Yes Physical Activity Frequency: 3-4 Times per Week Seatbelt Use: always Sunscreen Use: Yes Assistive Devices: None Review of Systems Review of Systems: The patient denies chest pain, palpitations, shortness of breath, dyspnea on exertion, cough, lower extremity swelling, sore throat, fevers, chills, sweats, nausea, vomiting, diarrhea , constipation, abdominal pain, pelvic pain, blood in urine or stool, dysuria, urinary frequency or urgency, lightheadedness, dizziness, headache, memory loss, loss of consciousness, rash, abnormal bruising or bleeding, imbalance, focal weakness, numbness or tingling in arms or legs, or night sweats. The review of systems is otherwise negative other than for that already noted above, and at least 10 systems have been reviewed. Physical Exam Physical Exam: The patient is awake, alert and oriented 3, well developed and well nourished, normocephalic and atraumatic, lying in bed and in no acute distress. HEENT--PERRL, EOMI, mucous membranes and oropharynx dry. Neck--supple. No JVD. No bruits. Thyroid normal, trachea midline, no adenopathy. Heart--normal S1 and S2. No murmurs, rubs or gallops. Lung/chest wall-clear bilaterally, no respiratory distress, no accessory muscle use. Mild reproducible xiphisternal pain Abdomen--normal bowel sounds and soft. Nontender. Nondistended, no hernias or masses, no organomegaly. Extremities--no cyanosis or clubbing. No edema. There are good distal pulses b/l. Dermatologic--normal skin turgor, normal color, no abnormal lymph nodes, no rash. Neurologic--cranial nerves II through XII grossly intact. Rheumatologic--normal range of motion. Psychiatric--normal affect. Results & Data Results & Data Vital Signs (Past 12 Hours) Vital Signs Temp Pulse Pulse Resp BP BP Pulse Ox 01/05/24 02:06 53 L 19 165/90 H 91 01/05/24 01:48 54 L 01/05/24 01:27 52 L 18 97 01/05/24 01:03 59 L 17 93 01/05/24 00:15 88 16 152/88 H 93 01/04/24 23:06 58 L 18 98 01/04/24 22:04 86 L 01/04/24 21:49 60 20 168/94 H 92 01/04/24 21:48 60 20 92 01/04/24 21:45 66 01/04/24 21:37 36.9 C 69 20 161/92 H 96 O2 Del Method O2 Flow Rate 01/05/24 02:06 Nasal Cannula 2 01/05/24 01:48 01/05/24 01:27 Nasal Cannula 2 01/05/24 01:03 Room Air 01/05/24 00:15 Room Air 01/04/24 23:06 Room Air 01/04/24 22:04 Room Air, Nasal Cannula 0 01/04/24 21:49 Room Air 01/04/24 21:48 Room Air 01/04/24 21:45 01/04/24 21:37 Room Air Laboratory Results Laboratory Results WBC 9.88 K/ul (4.8-10.8) 01/04/24 Unknown RBC 4.48 M/uL (4.20-5.40) 01/04/24 Unknown Hgb 15.5 g/dl (12.0-16.0) 01/04/24 Unknown Hct 43.8 % (37.0-47.0) 01/04/24 Unknown MCV 97.8 fL (80.0-100.0) 01/04/24 Unknown MCH 34.6 pg (25.0-34.0) H 01/04/24 Unknown MCHC 35.4 g/dL (32.0-36.0) 01/04/24 Unknown RDW Std Deviation 50.7 fL (36.4-46.3) H 01/04/24 Unknown RDW Coeff of Cirara 14.0 % (11.5-14.5) 01/04/24 Unknown Plt Count 229 K/uL (130-400) 01/04/24 Unknown MPV 11.3 fL (9.4-12.4) 01/04/24 Unknown Immature Gran % (Auto) 1.3 % 01/04/24 Unknown Neut % (Auto) 81.6 % 01/04/24 Unknown Lymph % (Auto) 11.4 % 01/04/24 Unknown [place] % (Auto) 5.5 % 01/04/24 Unknown Eos % (Auto) 0.0 % 01/04/24 Unknown Baso % (Auto) 0.2 % 01/04/24 Unknown Neut # (Auto) 8.06 K/uL (1.40-6.50) H 01/04/24 Unknown Lymph # (Auto) 1.13 K/uL (1.20-3.40) L 01/04/24 Unknown [place]illion # (Auto) 0.54 K/uL (0.11-0.59) 01/04/24 Unknown Eos # (Auto) 0.00 K/uL (0.00-0.50) 01/04/24 Unknown Baso # (Auto) 0.02 K/uL (0.00-0.20) 01/04/24 Unknown Immature Gran # (Auto) 0.13 K/uL (0.01-0.20) 01/04/24 Unknown PT 10.3 Seconds (9.0-12.0) 01/04/24 Unknown INR 0.9 (0.9-1.1) 01/04/24 Unknown APTT 24 Seconds (21-31) 01/04/24 Unknown PTT Ratio 0.9 01/04/24 Unknown Sodium 137 mmol/L (136-145) 01/04/24 Unknown Potassium 4.2 mmol/L (3.5-5.1) 01/04/24 Unknown Chloride 104 mmol/L (98-107) 01/04/24 Unknown Carbon Dioxide 20 mmol/L (21-32) L 01/04/24 Unknown Anion Gap 13 (3-11) H 01/04/24 Unknown BUN 25 mg/dl (6-23) H 01/04/24 Unknown Creatinine 1.16 mg/dl (0.6-1.2) 01/04/24 Unknown Est Cr Clr Drug Dosing 37.0 ml/min 01/04/24 Unknown Est GFR ( Amer) 52.2 ml/min 01/04/24 Unknown Est GFR (Non-Af Amer) 45.1 ml/min 01/04/24 Unknown BUN/Creatinine Ratio 21.6 (10-20) H 01/04/24 Unknown Glucose 106 mg/dl (70-99(Fasting)) H 01/04/24 Unknown Calcium 10.1 mg/dl (8.6-10.3) 01/04/24 Unknown Total Bilirubin 0.3 mg/dl (0.2-1.0) 01/04/24 Unknown AST 21 U/L (13-39) 01/04/24 Unknown ALT 21 U/L (7-52) 01/04/24 Unknown Alkaline Phosphatase 89 U/L (34-104) 01/04/24 Unknown Troponin I High Sens 6.0 pg/ml (0-14) 01/04/24 Unknown Total Protein 8.3 gm/dl (6.0-8.3) 01/04/24 Unknown Albumin 4.5 gm/dl (3.4-5.0) 01/04/24 Unknown Globulin 3.8 gm/dl (2.5-4.0) 01/04/24 Unknown Albumin/Globulin Ratio 1.2 (0.9-2) 01/04/24 Unknown Lipase 54 U/L (11-82) 01/04/24 Unknown Impressions Gallbladder Ultrasound 01/04/24 22:01 Exam(s): US GALLBLADDER EXAM: US Abdomen Limited, Gallbladder CLINICAL HISTORY: Reason for exam: epigastric pain, after fatty dinner. TECHNIQUE: Real-time ultrasound of the right upper quadrant with image documentation. COMPARISON: No relevant prior studies available. FINDINGS: Liver: Heterogeneous appearance of the liver. Multiple liver calcifications/granulomas. Gallbladder: Negative sonographic Ramos sign. Multiple gallbladder polyps. Likely also tiny gallstone. No gallbladder wall thickening or pericholecystic fluid. Common bile duct: Unremarkable as visualized. No stones. No dilation. Common bile duct measures 0.6 cm in diameter. Pancreas: Unremarkable as visualized. IMPRESSION: 1. Heterogeneous appearance of the liver. May reflect hepatic steatosis or other hepatic infiltrative process. 2. Multiple gallbladder polyps. Likely also tiny gallstone. No evidence of acute cholecystitis Electronically signed by: South Paredes M.D. 01/05/24 01:36 AM Chest CTA 01/05/24 00:40 CR Exam(s): CTA CHEST W/WO Contrast IV Amt: 118 ml optiray 320 EXAM: CT Angiography Chest Without and With Intravenous Contrast CLINICAL HISTORY: Reason for exam: mid epigastric stabbing, sudden. TECHNIQUE: Axial computed tomographic angiography images of the chest without and with intravenous contrast. CTDI is 21.43 mGy and DLP is 1302.94 mGy-cm. Automated exposure control was utilized for the study. A dose lowering technique was utilized adhering to the principles of ALARA. MIP reconstructed images were created and reviewed. CONTRAST: Patient received 118 ml optiray 320 of IV contrast COMPARISON: CT abdomen and pelvis 02/14/2014 FINDINGS: Pulmonary arteries: Small pulmonary embolism within right lower lobe subsegmental artery. Series 7 image 138. Aorta: Mildly aneurysmal ascending aorta 4.1 cm. No evidence of leak. Atherosclerotic plaque and calcifications throughout the descending thoracic aorta, increased since the 2014 CT abdomen pelvis study. Lungs: Right lower lobe calcified granulomas. Bibasilar atelectasis. No mass. Pleural space: Unremarkable. No significant effusion. No pneumothorax. Heart: Coronary calcifications, notably of the left coronary arteries. Small pericardial effusion or thickening. No cardiomegaly. No evidence of RV dysfunction. Mediastinum: Calcified granulomatous mediastinal and bilateral hilar nodes. Bones/joints: Mild compression deformities of the T7 and T10 vertebral bodies, age indeterminate. No dislocation. Soft tissues: Unremarkable. Lymph nodes: See above. No enlarged nodes. Liver: Calcified liver granulomas. Spleen: Calcified splenic granulomas. IMPRESSION: 1. Small pulmonary embolism within right lower lobe subsegmental artery. 2. Mildly aneurysmal ascending aorta 4.1 cm. No evidence of leak. 3. Coronary calcifications, notably of the left coronary arteries. 4. Mild compression deformities of the T7 and T10 vertebral bodies, age indeterminate. Communications: Call Doctor Pulmonary Embolism Electronically signed by: South Paredes M.D. 01/05/24 02:07 AM Code Status & VTE Plan Code Status full code VTE Prophylaxis Plan VTE Prophylaxis will be ordered: Yes PG Care Time/CCT Total # of Minutes Spent Total Time Spent with Patient: Total time spent is greater than 50% in coordination of care (as documented) at patient's floor/unit and/or counseling patient: Coding Level of Care Code 76806 INT INP/OBS CARE 3/75MIN Diagnoses Pulmonary embolism on right I26.99 Single subsegmental pulmonary embolism without acute cor pulmonale I26.93 Hypothyroidism (acquired) E03.9 HTN (hypertension) I10 Depression with anxiety F41.8 Polymyalgia M35.3 Arthralgia of multiple sites M25.50
[2024-01-05] MEDS: HEPARIN SODIUM/DEXTROSE 25,000 UNITS/500 ML BAG IV SCH (03:30)
[2024-01-05] MEDS ORDERED: ACETAMINOPHEN 325 MG TAB PO PRN (05:33)
[2024-01-05] MEDS ORDERED: ONDANSETRON INJ 2 MG/ML 2 ML VIAL IV PRN (05:33)
--- NOTE | 2024-01-05 05:55 | Ultrasound Report ---
Exam(s): US VENOUS BILATERAL LOWER EXTREMITIES EXAM: US Duplex Bilateral Lower Extremities Veins CLINICAL HISTORY: Reason for exam: DVT. TECHNIQUE: Real-time duplex ultrasound scan of the bilateral lower extremity veins integrating B-mode two-dimensional vascular structure, Doppler spectral analysis, color flow Doppler imaging and compression. COMPARISON: No relevant prior studies available. FINDINGS: Right deep veins: Unremarkable. No DVT in the right common femoral, femoral, proximal deep femoral or popliteal veins. The veins demonstrate normal color flow, are normally compressible, with normal phasic flow and/or augmentation response. Right superficial veins: Unremarkable. No thrombus in the visualized right great saphenous vein. Left deep veins: Unremarkable. No DVT in the left common femoral, femoral, proximal deep femoral or popliteal veins. The veins demonstrate normal color flow, are normally compressible, with normal phasic flow and/or augmentation response. Left superficial veins: Unremarkable. No thrombus in the visualized left great saphenous vein. Soft tissues: No acute findings. No popliteal cyst. IMPRESSION: No evidence of DVT in bilateral lower extremities. Electronically signed by: South Paredes M.D. 01/05/24 05:54 AM
[2024-01-05] MEDS: LEVOTHYROXINE SODIUM 50 MCG TABLET PO SCH (06:45)
--- NOTE | 2024-01-05 07:26 | Hospitalist Progress Note ---
Date of Service January 05, 2024 Assessment & Plan Plan Plan 1) Pulmonary embolism on right/Single subsegmental pulmonary embolism without acute cor pulmonale: Small subsegmental PE RLL subsegmental artery- As noted on CTA PE study Venous Doppler of bilateral lower extremities ordered and pending Unclear whether this is the cause of her acute, now resolved severe epigastric pain, but her clinical examination does not support it Start heparin low-dose standard protocol without bolus 2) Polymyalgia/polyarthralgias/acute exacerbation of low back pain - Patient had been placed on prednisone tapering schedule about 3 days ago, and had significant improvement of the symptoms, suggesting a possible diagnosis of PMR She reports that the prednisone helped significantly more than either meloxicam or ibuprofen This can be further addressed in the outpatient setting Check an ESR, rheumatoid factor and KIP 3) Epigastric pain Patient had been using ibuprofen every few days for low back pain, but has been on prednisone twice daily dosing for the past 3 days. Question whether her acute epigastric pain may have been associated with GI distress secondary to NSAIDs/steroids - Started pantoprazole 40 mg, PO, daily 4) Hypothyroidism - continue patient's levothyroxine, 50 mcg, PO, daily 6) Mild enlarged/aneurysmal abdominal aortic artery Incidentally noted on CTA chest a AAA, 4.1 cm Will need to have scheduled follow-up studies 7) Hypertension - Continue valsartan, 80 mg, PO, daily and diltiazem, 240 mg, PO, daily 8) Anxiety/depression - continue escitalopram, 20 mg, PO, daily Admission and Anticipated Discharge Date Admission Date: January 05, 2024 Results & Data Results & Data Vital Signs (Past 12 Hours) Vital Signs Temp Pulse Pulse Resp BP BP Pulse Ox 01/05/24 07:06 51 L 01/05/24 06:46 01/05/24 06:46 36.4 C 57 L 16 165/93 H 94 01/05/24 05:00 50 L 16 171/92 H 93 01/05/24 04:00 52 L 19 182/98 H 95 01/05/24 03:43 54 L 19 196/95 H 94 01/05/24 03:42 88 L 01/05/24 02:06 53 L 19 165/90 H 91 01/05/24 01:48 54 L 01/05/24 01:27 52 L 18 97 01/05/24 01:03 59 L 17 93 01/05/24 00:15 88 16 152/88 H 93 01/04/24 23:06 58 L 18 98 01/04/24 22:04 86 L 01/04/24 21:49 60 20 168/94 H 92 01/04/24 21:48 60 20 92 01/04/24 21:45 66 01/04/24 21:37 36.9 C 69 20 161/92 H 96 O2 Del Method O2 Flow Rate 01/05/24 07:06 01/05/24 06:46 Nasal Cannula 2 01/05/24 06:46 Nasal Cannula 2 01/05/24 05:00 Nasal Cannula 2 01/05/24 04:00 Nasal Cannula 2 01/05/24 03:43 Nasal Cannula 2 01/05/24 03:42 Room Air 01/05/24 02:06 Nasal Cannula 2 01/05/24 01:48 01/05/24 01:27 Nasal Cannula 2 01/05/24 01:03 Room Air 01/05/24 00:15 Room Air 01/04/24 23:06 Room Air 01/04/24 22:04 Room Air, Nasal Cannula 0 01/04/24 21:49 Room Air 01/04/24 21:48 Room Air 01/04/24 21:45 01/04/24 21:37 Room Air Resident Activity Tracking Resident Involvement: Resident Care Provided Care Provided: Adult Hospital Medicine
--- NOTE | 2024-01-05 08:18 | XRay Report ---
XR chest 1V portable CLINICAL HISTORY: Chest pain, nonspecific TECHNIQUE: Single frontal radiograph of the chest was obtained. Comparison: Comparison is made to chest radiograph 08/13/2021 FINDINGS: No lines and tubes are seen. Calcified aortic knob is seen. The lungs are clear. No evidence of pleur al effusion or pneumothorax. IMPRESSION: No acute chest disease. ACT 112: Negative or not required by law. Electronically signed by: Bo Jett M.D. 01/05/2024 8:16 AM
[2024-01-05] MEDS: VALSARTAN 80 MG TAB PO SCH (08:22)
[2024-01-05] MEDS: FOLIC ACID 1 MG TAB PO SCH (08:23)
[2024-01-05] MEDS: ESCITALOPRAM OXALATE 20 MG TAB PO SCH (08:23)
[2024-01-05] MEDS: dilTIAZem HCL 240 MG CAPCR PO SCH (08:25)
[2024-01-05] MEDS: PANTOprazole 40 MG TAB PO SCH (08:26)
[2024-01-05] MEDS: CHOLECALCIFEROL 25 MCG (1000 UNITS) TAB PO SCH (09:56)
[2024-01-05 10:05] LABS: ANTI-Xa, UFH(UnfractionatedHep 0.51 IU/ml (0.3-0.7)
--- NOTE | 2024-01-05 10:37 | Hospitalist Progress Note ---
Date of Service January 05, 2024 Assessment & Plan (1) Pulmonary embolism on right: Plan: Laisha Paulino is a 78 year old female with a PMHx of hypothryoidism, HTN, HLD, depression with anxiety, and chronic low back pain who presented 1 day ago for acute onset of severe epigastric pain in the context of chronic NSAID use. She was subsequently diagnosed with a RLL small subsegmental artery PE. RLL Small Subsegmental Artery PE -Sudden onset sharp chest pain. No evidence of acute cor pulmonale -Coagulation panel wnl -Chest CTA: small PE within RLL subsegmental artery. Venous Doppler: negative for DVT. -s/p: low dose heparin without bolus * Discussed risks and benefits of anticoagulation with the patient. * Switched to Heparin 10 mg BID on 01/05/24. Continue for 7 days (01/11) before decreasing dose to 5mg BID X 3 months. * Decreased nasal cannula to 1 L. Continue to decrease. Mildly aneurysmal ascending aorta -Incidental finding on CTA, no evidence of leak, 4.1 cm -BP elevated (see "hypertention") * Continue Valsartan 80 mg and Diltiazem 240 * Follow up with PCP. Consider beta olegario. Polymyalgia/polyarthralgias/acute exacerbation of low back pain - resolved -Patient on prednisone for past 3 days with had significant improvement of back pain, suggestive of possible diagnosis of PMR -ESR wnl * Rheumatoid factor and KIP pending * Follow up outpatient with pain management and/or rheumatology Epigastric pain - resolved -Patient not currently having abdominal pain, nausea, or vomiting -Recent prednisone use, chronic mild ibuprofen use. May have GI distress secondary to NSAIDs/steroids -Gallbladder U/S: negative for acute cholecystitis, +"tiny gallstone" and polyps - s/p Pantoprazole 40 mg (ED), morphine sulfate 2 mg IV (ED) Hypothyroidism, chronic * Continue levothyroxine 50 mcg Hypertension, chronic -See "mildly aneurysmal ascending aorta" * Continue valsartan 80 mg and diltiazem 240 mg * Follow up with PCP Anxiety/depression, chronic * Continue escitalopram 20 mg, PO, daily FEN: Heart healthy Code status: Full code DVT ppx: Heparin PT/OT: Consulted Dispo: med tele (2) Single subsegmental pulmonary embolism without acute cor pulmonale: (3) Hypothyroidism (acquired): (4) HTN (hypertension): (5) Depression with anxiety: (6) Polymyalgia: (7) Arthralgia of multiple sites: Admission and Anticipated Discharge Date Admission Date: January 05, 2024 Supervising Physician Co-Signing Physician Notes ATTESTATION I also saw the patient and confirmed daniel portions of the history and exam. I agree with the impression and plan in the resident documentation, and as summarized below. Upon our exam around noon, the patient without complaints. She was still on oxygen via nasal cannula at 2 L/min. Patient had a recent flareup of low back pain. She actually presented to the emergency department noting generalized weakness, no specific pulmonary symptoms. EXAM Alert and oriented. Pleasant. No distress noted. Heart regular rate and rhythm Lungs clear with nonlabored respirations Lower extremity without edema; no calf tenderness. DATA Labs WBC 9.88, HgB 15.5, PLT 229 Na 137, K 4.2, BUN 25, Cr 1.16 AST 21, ALT 21, AP 89 Imaging Venous Dopplers negative for DVT the bilateral lower extremities CT of the chest shows small pulmonary embolism within the right lower lobe subsegmental artery. Also is noted a mild aneurysmal ascending aorta at 4.1 cm. IMPRESSION & PLAN Small subsegmental PE RLL subsegmental artery As noted on CTA PE study Not sure if her symptoms are consistent, but in any event, her presenting symptoms are largely resolved Transition heparin to DOAC Polymyalgia/polyarthralgias/acute exacerbation of low back pain Patient had been placed on prednisone tapering schedule about 3 days ago, and had significant improvement of the symptoms, suggesting a possible diagnosis of PMR ESR this morning was 23; I would suspect even with 3 days of prednisone, it still would be higher if this was truly PMR. This can be further addressed in the outpatient setting KIP pending Epigastric pain Patient had been using ibuprofen every few days for low back pain, but has been on prednisone twice daily dosing for the past 3 days. Protonix 40 mg p.o. daily AAA 4.1 cm/hypertension Continue valsartan and diltiazem; her outpatient BPs have been high end normal; may need to titrate for better control now with knowledge of AAA Will need to have scheduled follow-up studies Additional per resident documentation Subjective No acute overnight events. She is not currently having any pain. Her symptoms started yesterday morning upon waking up. She described it as a stabbing chest pain in the center of her chest. She has been chronically SOB for the past 5 years since getting COVID, although it has been improving over the last year. She denied cough, hemoptysis, abdominal pain, nausea, vomiting, hematemesis. She has been using prednisone BID for the past 3 days to treat low back pain. 3 weeks ago she took a 6 [address] ride to [place]. No prior cancer diagnoses or history of blood clots. She is unaware of a family history of cancer or blood clots. Review of Systems 2 Review of Systems: See HPI, otherwise negative Physical Exam 2 Physical Exam: Constitutional: well-appearing, no acute distress HEENT: NCAT, no conjunctival injection, no scleral icterus CV: Regular rate and rhythm, no murmur appreciated, extremities well-perfused, no LE edema Resp: No increased work of breathing, CTABL, no wheezes/rales/rhonchi appreciated GI: Soft, nondistended, nontender, BS normoactive MSK: no gross deformities appreciated Skin: warm, dry, no rash appreciated Neuro: Alert, oriented, no focal neurologic deficits appreciated Results & Data Results & Data Vital Signs (Past 12 Hours) Vital Signs Temp Pulse Pulse Resp BP BP Pulse Ox 01/05/24 07:22 63 18 182/99 H 96 01/05/24 07:06 51 L 01/05/24 06:46 01/05/24 06:46 97.6 F 57 L 16 165/93 H 94 01/05/24 05:00 50 L 16 171/92 H 93 01/05/24 04:00 52 L 19 182/98 H 95 01/05/24 03:43 54 L 19 196/95 H 94 01/05/24 03:42 88 L 01/05/24 02:06 53 L 19 165/90 H 91 01/05/24 01:48 54 L 01/05/24 01:27 52 L 18 97 01/05/24 01:03 59 L 17 93 01/05/24 00:15 88 16 152/88 H 93 01/04/24 23:06 58 L 18 98 01/04/24 22:04 86 L 01/04/24 21:49 60 20 168/94 H 92 01/04/24 21:48 60 20 92 01/04/24 21:45 66 01/04/24 21:37 98.4 F 69 20 161/92 H 96 O2 Del Method O2 Flow Rate 01/05/24 07:22 Room Air 01/05/24 07:06 01/05/24 06:46 Nasal Cannula 2 01/05/24 06:46 Nasal Cannula 2 01/05/24 05:00 Nasal Cannula 2 01/05/24 04:00 Nasal Cannula 2 01/05/24 03:43 Nasal Cannula 2 01/05/24 03:42 Room Air 01/05/24 02:06 Nasal Cannula 2 01/05/24 01:48 01/05/24 01:27 Nasal Cannula 2 01/05/24 01:03 Room Air 01/05/24 00:15 Room Air 01/04/24 23:06 Room Air 01/04/24 22:04 Room Air, Nasal Cannula 0 01/04/24 21:49 Room Air 01/04/24 21:48 Room Air 01/04/24 21:45 01/04/24 21:37 Room Air Laboratory Results 01/04/24 Unknown 01/04/24 Unknown Diagnostic Findings XR chest 1V portable: No acute chest disease. Chest CTA 1. Small pulmonary embolism within right lower lobe subsegmental artery. 2. Mildly aneurysmal ascending aorta 4.1 cm. No evidence of leak. 3. Coronary calcifications, notably of the left coronary arteries. 4. Mild compression deformities of the T7 and T10 vertebral bodies, age indeterminate. US GALLBLADDER 1. Heterogeneous appearance of the liver. May reflect hepatic steatosis or other hepatic infiltrative process. 2. Multiple gallbladder polyps. Likely also tiny gallstone. No evidence of acute cholecystitis US VENOUS BILATERAL LOWER EXTREMITIES No evidence of DVT in bilateral lower extremities. Medications Administered Current Medications Acetaminophen (Acetaminophen 325 Mg Tab) 650 mg PO Q4H PRN PRN Reason: Pain or Fever Stop: 02/04/24 05:32 Apixaban (Apixaban 5 Mg Tablet) 10 mg PO BID [facility] Stop: 01/11/24 21:01 Last Admin: 01/05/24 10:55 Dose: 10 mg Diltiazem HCl (Diltiazem Hcl 240 Mg Capcr) 240 mg PO DAILY [facility] Stop: 02/04/24 08:59 Last Admin: 01/05/24 08:25 Dose: Not Given Escitalopram Oxalate (Escitalopram Oxalate 20 Mg Tab) 20 mg PO DAILY [facility] Stop: 02/04/24 08:59 Last Admin: 01/05/24 08:23 Dose: 20 mg Folic Acid (Folic Acid 1 Mg Tab) 1 mg PO DAILY [facility] Stop: 02/04/24 08:59 Last Admin: 01/05/24 08:23 Dose: 1 mg Levothyroxine Sodium (Levothyroxine Sodium 50 Mcg Tablet) 50 mcg PO DAILYBB [facility] Stop: 02/04/24 06:29 Last Admin: 01/05/24 06:45 Dose: 50 mcg Ondansetron HCl (Ondansetron Inj 2 Mg/Ml 2 Ml Vial) 4 mg IV Q6H PRN PRN Reason: Nausea Stop: 02/04/24 05:32 Pantoprazole Sodium (Pantoprazole 40 Mg Tab) 40 mg PO QAM [facility] Stop: 02/04/24 08:59 Last Admin: 01/05/24 08:26 Dose: 40 mg Valsartan (Valsartan 80 Mg Tab) 80 mg PO DAILY [facility] Stop: 02/04/24 08:59 Last Admin: 01/05/24 08:22 Dose: 80 mg Vitamin D (Cholecalciferol 25 Mcg (1000 Units) Tab) 50 mcg PO DAILY [facility] Stop: 02/04/24 08:59 Last Admin: 01/05/24 09:56 Dose: 50 mcg
[2024-01-05] MEDS: APIXABAN 5 MG TABLET PO SCH (10:55)
--- NOTE | 2024-01-05 17:36 | Electrocardiogram Report ---
Test Reason : Blood Pressure : / mmHG Vent. Rate : 065 BPM Atrial Rate : 065 BPM P-R Int : 126 ms QRS Dur : 082 ms QT Int : 442 ms P-R-T Axes : 034 -51 016 degrees QTc Int : 459 ms Normal sinus rhythm Left anterior fascicular block Nonspecific T wave abnormality Abnormal ECG When compared with ECG of 25-JUN-2023 20:27, Nonspecific T wave abnormality has replaced inverted T waves in Inferior leads Confirmed by Yehuda Vogel ([id number]) on 01/05/2024 5:35:42 PM Referred By: REFERRED SELF Confirmed By:Olivier Vogel
[2024-01-05] MEDS: ACETAMINOPHEN 500 MG TAB PO PRN (21:10)
[2024-01-06 06:16] LABS: Basophils # (auto) 0.02 K/uL (0.00-0.20); Basophils % (auto) 0.3 %; Eosinophils # (auto) 0.21 K/uL (0.00-0.50); Eosinophils % (auto) 3.6 %; Hematocrit (blood only) 39.8 % (37.0-47.0); Hemoglobin 13.8 g/dl (12.0-16.0); Immature Granulocytes # (auto) 0.08 K/uL (0.01-0.20); Immature Granulocytes % (auto) 1.4 %; Lymphocytes # (auto) 1.72 K/uL (1.20-3.40); Lymphocytes % (auto) 29.1 %; Mean Corpuscular Hemoglobin 34.4 pg (25.0-34.0); Mean Corpuscular Hgb Conc 34.7 g/dL (32.0-36.0); Mean Corpuscular Volume 99.3 fL (80.0-100.0); Mean Platelet Volume 11.4 fL (9.4-12.4); Monocytes # (auto) 0.69 K/uL (0.11-0.59); Monocytes % (auto) 11.7 %; Neutrophils # (auto) 3.19 K/uL (1.40-6.50); Neutrophils % (auto) 53.9 %; Platelet Count 187 K/uL (130-400); RDW Coefficient of Variation 14.1 % (11.5-14.5); Red Blood Count 4.01 M/uL (4.20-5.40); White Blood Count 5.91 K/ul (4.8-10.8)
[2024-01-06 06:44] LABS: Albumin Level 3.3 gm/dl (3.4-5.0); BUN Creatinine Ratio 18.5 (10-20); Calcium 8.6 mg/dl (8.6-10.3); Creatinine Clr Calc Pharmacy 39.9 ml/min; Est GFR (African American) 56.9 ml/min; Est GFR (Non-African American) 49.1 ml/min; Magnesium 2.2 mg/dl (1.7-2.4); Phosphorus 4.4 mg/dl (2.5-4.9); Potassium 4.3 mmol/L (3.5-5.1)
--- NOTE | 2024-01-06 08:18 | Hospitalist Progress Note ---
Date of Service January 06, 2024 Assessment & Plan (1) Pulmonary embolism on right: Plan: Laisha Paulino is a 78 year old female with a PMHx of hypothryoidism, HTN, HLD, depression with anxiety, and chronic low back pain who presented 1 day ago for acute onset of severe epigastric pain in the context of chronic NSAID use. She was subsequently diagnosed with a RLL small subsegmental artery PE. RLL Small Subsegmental Artery PE -Sudden onset sharp chest pain. No evidence of acute cor pulmonale. Pain now resolved. Currently considered provoked in the context of recent 6 hour car ride -O2 sat in the low 90s on room air. No CP or SOB. -Coagulation panel wnl -Chest CTA: small PE within RLL subsegmental artery. Venous Doppler: negative for DVT. -s/p: low dose heparin without bolus * Discussed risks and benefits of anticoagulation with the patient * Switched to Heparin 10 mg BID on 01/05/24. Continue for 7 days (01/11) before switching to Apixaban 5mg BID X 3 months * Decreased nasal cannula to 1 L. Continue to decrease. Hypertension, chronic -See "mildly aneurysmal ascending aorta" -Pt had a BP of 197/107 this AM, similar on other arm. Repeat manual BP 148/98 * Continue valsartan 80 mg and diltiazem 240 mg * Follow up with PCP Mildly aneurysmal ascending aorta -Incidental finding on CTA, no evidence of leak, 4.1 cm -BP elevated (see "hypertension") * Continue Valsartan 80 mg and Diltiazem 240 * Follow up with PCP. Consider beta olegario. Acute exacerbation of low back pain -Patient on prednisone for past 3 days with had significant improvement of back pain, suggestive of possible diagnosis of PMR. Able to ambulate without concern. -ESR wnl * Rheumatoid factor and KIP pending * Follow up outpatient with pain management. Consider outpatient rheumatology Epigastric pain - resolved -Patient not currently having abdominal pain, nausea, or vomiting -Recent prednisone use, chronic mild ibuprofen use. May have GI distress secondary to NSAIDs/steroids -Gallbladder U/S: negative for acute cholecystitis, +"tiny gallstone" and polyps - s/p Pantoprazole 40 mg (ED), morphine sulfate 2 mg IV (ED) Hypothyroidism, chronic -Last TSH on 11/25/23 wnl * Continue levothyroxine 50 mcg Anxiety/depression, chronic * Continue escitalopram 20 mg FEN: Heart healthy Code status: Full code DVT ppx: Heparin PT/OT: Consulted Dispo: med tele (2) Single subsegmental pulmonary embolism without acute cor pulmonale: (3) Hypothyroidism (acquired): (4) HTN (hypertension): (5) Depression with anxiety: (6) Polymyalgia: (7) Arthralgia of multiple sites: (8) Abdominal aortic aneurysm (AAA) 3.0 cm to 5.0 cm in diameter in female: Admission and Anticipated Discharge Date Admission Date: January 05, 2024 Supervising Physician Co-Signing Physician Notes I personally examined the patient and verified daniel points of history and exam, discussed case, and agree with decision making and plan documented by Lina MENDEZ and Dr. Herrera. Patient tolerating Eliquis well, she states pain has been resolved, she is breathing well without any cardiorespiratory symptoms. We reviewed increased bleeding risk on anticoagulants. Repeat blood pressure reported 148/98 mmHg on manual cuff, not documented by nursing under vital signs. Discussed with patient the importance of blood pressure control in setting of ascending aorta aneurysm, she is understanding, has home cuff at home to monitor. Patient appears comfortable, lungs clear b/l to auscultation, regular rate and rhythm, no acute distress. Overall patient states back pain has improved, encourage continued efforts to maintain activity as tolerated, she is recommended to follow-up with her PCP within the next week, she is understanding. Omayra Paulino is a 78 year old female with a PMHx of hypothryoidism, HTN, HLD, depression with anxiety, and chronic low back pain who presented 1 day ago for acute onset of severe epigastric pain in the context of chronic NSAID use. She was subsequently diagnosed with a RLL small subsegmental artery PE. She is having some increased left sided sciatic pain. She is able to ambulate without concern. She had a BP of 197/107 this morning, similar on repeat on other arm (automatic). On repeat with new cuff, her BP went down but is unsure what it was. Her most recent BP was 177/103. Review of Systems 2 Review of Systems: See HPI, otherwise negative Physical Exam 2 Physical Exam: Constitutional: well-appearing, no acute distress HEENT: NCAT, no conjunctival injection, no scleral icterus CV: Regular rate and rhythm, no murmur appreciated, extremities well-perfused, no LE edema Resp: No increased work of breathing, CTABL, no wheezes/rales/rhonchi appreciated GI: Soft, nondistended, nontender, BS normoactive MSK: no gross deformities appreciated Skin: warm, dry, no rash appreciated Neuro: Alert, oriented, no focal neurologic deficits appreciated Results & Data Results & Data Vital Signs (Past 12 Hours) Vital Signs Temp Pulse Pulse Resp BP BP Pulse Ox 01/06/24 07:39 98.4 F 64 18 195/107 H 91 01/06/24 03:45 97.7 F 55 L 16 160/90 H 92 01/06/24 00:21 53 L 01/05/24 23:09 97.9 F 56 L 16 163/89 H 92 O2 Del Method 01/06/24 07:39 Room Air 01/06/24 03:45 Room Air 01/06/24 00:21 01/05/24 23:09 Room Air Laboratory Results 01/06/24 05:35 01/06/24 05:35 Medications Administered Medication List Acetaminophen (Acetaminophen 500 Mg Tab) 1,000 mg PO Q8H PRN PRN Reason: Pain or Fever Stop: 02/04/24 05:32 Last Admin: 01/05/24 21:10 Dose: 1,000 mg Documented By: SUNSHINE Apixaban (Apixaban 5 Mg Tablet) 10 mg PO BID [facility] Stop: 01/11/24 21:01 Last Admin: 01/06/24 07:35 Dose: 10 mg Documented By: Admin: 01/05/24 20:41 Dose: 10 mg Documented By: Admin: 01/05/24 10:55 Dose: 10 mg Documented By: МАРИЯ Diltiazem HCl (Diltiazem Hcl 240 Mg Capcr) 240 mg PO DAILY [facility] Stop: 02/04/24 08:59 Last Admin: 01/06/24 07:34 Dose: 240 mg Documented By: Admin: 01/05/24 08:25 Dose: Not Given Documented By: МАРИЯ Escitalopram Oxalate (Escitalopram Oxalate 20 Mg Tab) 20 mg PO DAILY [facility] Stop: 02/04/24 08:59 Last Admin: 01/06/24 07:36 Dose: 20 mg Documented By: Admin: 01/05/24 08:23 Dose: 20 mg Documented By: МАРИЯ Folic Acid (Folic Acid 1 Mg Tab) 1 mg PO DAILY [facility] Stop: 02/04/24 08:59 Last Admin: 01/06/24 07:35 Dose: 1 mg Documented By: Admin: 01/05/24 08:23 Dose: 1 mg Documented By: МАРИЯ Levothyroxine Sodium (Levothyroxine Sodium 50 Mcg Tablet) 50 mcg PO DAILYBB [facility] Stop: 02/04/24 06:29 Last Admin: 01/06/24 05:49 Dose: 50 mcg Documented By: Admin: 01/05/24 06:45 Dose: 50 mcg Documented By: DAVIAN Pantoprazole Sodium (Pantoprazole 40 Mg Tab) [facility] [place]: 02/04/24 08:59 Last Admin: 01/06/24 09:48 Dose: 40 mg Documented By: Admin: 01/05/24 08:26 Dose: 40 mg Documented By: МАРИЯ Valsartan (Valsartan 80 Mg Tab) 80 mg PO DAILY [facility] Stop: 02/04/24 08:59 Last Admin: 01/06/24 07:35 Dose: 80 mg Documented By: Admin: 01/05/24 08:22 Dose: 80 mg Documented By: МАРИЯ Vitamin D (Cholecalciferol 25 Mcg (1000 Units) Tab) 50 mcg PO DAILY [facility] Stop: 02/04/24 08:59 Last Admin: 01/06/24 07:35 Dose: 50 mcg Documented By: Admin: 01/05/24 09:56 Dose: 50 mcg Documented By: МАРИЯ Discontinued Medications Famotidine (Pepcid 20mg Iv Push) 20 mg in 5 mls @ 2.5 mls/min IV NOW STA Stop: 01/04/24 22:03 Last Admin: 01/04/24 22:09 Dose: 2.5 mls/min Documented By: FRANK Sodium Chloride (Nss) 1,000 mls @ 125 mls/hr IV .Q8H [facility] Stop: 02/03/24 22:14 Last Infusion: 01/05/24 05:46 Dose: Infused Documented By: Admin: 01/04/24 22:08 Dose: 125 mls/hr Documented By: FRANK Heparin Sodium/Dextrose (Heparin Sodium/Dextrose) 25,000 units in 500 mls @ 14 mls/hr IV .Q24H [facility]; Protocol Stop: 02/04/24 03:29 Last Titration: 01/05/24 12:43 Dose: Infused Documented By: МАРИЯ Co-signed By: LILA Titration: 01/05/24 12:33 Dose: 0 units/hr, 0 mls/hr Documented By: МАРИЯ Co-signed By: CASH Admin: 01/05/24 03:30 Dose: 700 units/hr, 14 mls/hr Documented By: DAVIAN Co-signed By: VINICIO Ioversol (Optiray 320 125ml) 125 ml IV ONCE ONE Stop: 01/05/24 00:56 Last Admin: 01/05/24 00:56 Dose: 118 ml Documented By: BINH Morphine Sulfate (Morphine Sulfate 2 Mg/Ml Carp) 2 mg IV NOW STA Stop: 01/04/24 22:03 Last Admin: 01/04/24 22:10 Dose: 2 mg Documented By: FRANK Ondansetron HCl (Ondansetron Inj 2 Mg/Ml 2 Ml Vial) 4 mg IV NOW STA Stop: 01/04/24 22:03 Last Admin: 01/04/24 22:09 Dose: 4 mg Documented By: FRANK
[2024-01-06 13:01] LABS: Anti Nuclear Antibody Screen NEGATIVE (NEGATIVE); Rheumatoid Factor <10 IU/mL (<14)
[2024-01-06] MEDS: APIXABAN 5 MG TABLET PO ONE (14:29)
--- NOTE | 2024-01-06 16:19 | Discharge Summary ---
Date of Service January 06, 2024 Admission HPI Per Admitting Provider The patient is a 78yo female with PMH including hypothyroidism, UTI, HTN, HLD, depression with anxiety, vitamin D deficiency and low back pain with generalized myalgias. The patient presents to the emergency department due to acute onset of severe epigastric pain, that when persisted for greater than 5 minutes, she told family that she needed to be brought to the emergency department for assessment. Patient reports a recent flareup of low back pain, for which she was placed on a prednisone taper by her PCP, which she is presently on day 3. Previous to that she had taken intermittent dosages of ibuprofen, which she preferred to meloxicam, which she reports had no significant improvement. She reports that at this time while on the prednisone, her back pain has resolved and she reports that all the generalized myalgias that she did not know she had are now resolved as well. Admission Exam Per Admitting Provider The patient is awake, alert and oriented 3, well developed and well nourished, normocephalic and atraumatic, lying in bed and in no acute distress. HEENT--PERRL, EOMI, mucous membranes and oropharynx dry. Neck--supple. No JVD. No bruits. Thyroid normal, trachea midline, no adenopathy. Heart--normal S1 and S2. No murmurs, rubs or gallops. Lung/chest wall-clear bilaterally, no respiratory distress, no accessory muscle use. Mild reproducible xiphisternal pain Abdomen--normal bowel sounds and soft. Nontender. Nondistended, no hernias or masses, no organomegaly. Extremities--no cyanosis or clubbing. No edema. There are good distal pulses b/l. Dermatologic--normal skin turgor, normal color, no abnormal lymph nodes, no rash. Neurologic--cranial nerves II through XII grossly intact. Rheumatologic--normal range of motion. Psychiatric--normal affect. Principal Diagnosis Single subsegmental pulmonary embolism without acute cor pulmonale Discharge Exam Constitutional: well-appearing, no acute distress HEENT: NCAT, no conjunctival injection, no scleral icterus CV: Regular rate and rhythm, no murmur appreciated, extremities well-perfused, no LE edema Resp: No increased work of breathing, CTABL, no wheezes/rales/rhonchi a ppreciated GI: Soft, nondistended, nontender, BS normoactive MSK: no gross deformities appreciated Skin: warm, dry, no rash appreciated Neuro: Alert, oriented, no focal neurologic deficits appreciated Discharge Data Allergies Allergy/AdvReac Type Severity Reaction Status Date / Time clindamycin Allergy Unknown CAN'T Verified 01/05/24 08:11 REMEMBER codeine Allergy Unknown CAN'T Verified 01/05/24 08:11 REMEMBER oxycodone Allergy Unknown CAN'T Verified 01/05/24 08:11 REMEMBER Penicillins Allergy Unknown CAN'T Verified 01/05/24 08:11 REMEMBER sulfamethoxazole Allergy Unknown CAN'T Verified 01/05/24 08:11 [From Bactrim] REMEMBER Tetracyclines Allergy Unknown CAN'T Verified 01/05/24 08:11 REMEMBER trimethoprim [From Bactrim] Allergy Unknown CAN'T Verified 01/05/24 08:11 REMEMBER Consultations 01/05/24 02:11 ED Decision to Admit Stat Ordered Studies 01/04/24 22:01 US gallbladder Stat 01/05/24 00:40 CT angio chest dissec wo/w con Stat 01/05/24 02:25 US venous doppler LE Stat Hospital Course (1) Pulmonary embolism on right: Laisha Paulino is a 78 year old female with a PMHx of hypothryoidism, HTN, HLD, depression with anxiety, and chronic low back pain who presented 1 day ago for acute onset of severe epigastric pain in the context of chronic NSAID use. She was subsequently diagnosed with a RLL small subsegmental artery PE. RLL Small Subsegmental Artery PE -Sudden onset sharp chest pain. No evidence of acute cor pulmonale. Pain now resolved. Currently considered provoked in the context of recent 6 hour car ride -O2 sat in the low 90s on room air. No CP or SOB. -Coagulation panel wnl -Chest CTA: small PE within RLL subsegmental artery. Venous Doppler: negative for DVT. -s/p: low dose heparin without bolus * Discussed risks and benefits of anticoagulation with the patient * Switched to Apixaban 10 mg BID on 01/05/24. Continue for 7 days (01/11) before switching to 5mg BID X 3 months * Follow up with PCP Hypertension, chronic -See "mildly aneurysmal ascending aorta" -Pt had a BP of 197/107 this AM, similar on other arm. Repeat manual BP 148/98 * Continue valsartan 80 mg and diltiazem 240 mg * Follow up with PCP Mildly aneurysmal ascending aorta -Incidental finding on CTA, no evidence of leak, 4.1 cm -BP elevated (see "hypertension") * Continue Valsartan 80 mg and Diltiazem 240 mg * Follow up with PCP Acute exacerbation of low back pain -Patient on prednisone for past 3 days with had significant improvement of back pain. Able to ambulate without concern. -ESR and rheumatoid wnl. KIP Negative. * Follow up outpatient with pain management. Epigastric pain - resolved -Patient not currently having abdominal pain, nausea, or vomiting -Recent prednisone use, chronic mild ibuprofen use. May have GI distress secondary to NSAIDs/steroids -Gallbladder U/S negative for acute cholecystitis - s/p Pantoprazole 40 mg (ED), morphine sulfate 2 mg IV (ED) Hypothyroidism, chronic -Last TSH on 11/25/23 wnl * Continue levothyroxine 50 mcg Anxiety/depression, chronic * Continue escitalopram 20 mg (2) Single subsegmental pulmonary embolism without acute cor pulmonale: (3) Hypothyroidism (acquired): (4) HTN (hypertension): (5) Depression with anxiety: (6) Polymyalgia: (7) Arthralgia of multiple sites: Total Time Total Time Spent Total Time Spent (In Minutes): 35 Discharge Plan Discharge Items Patient Disposition: Home - Self-Care Reason For Visit: RLL SUBSEG PE,EPIGASTRIC,GENERALIZED MYALGIA PAINS Discharge Diagnosis: pulmonary embolism abdominal aortic aneurysm, 4.1 cm Activity: Resume your previous activity Non-emergency contact: Primary Care Provider Call non-emergency contact if: you have any medication questions, your symptoms worsen and your pain is worsening Follow-up/Referrals: Noe Jameson MD [Primary Care Provider] - 01/11/24 10:15 am Diet: Regular Addtl Attending Provider Instructions: You were admitted to the hospital for chest pain subsequently found to have a pulmonary embolism. Also noted to have an abdominal aortic aneurysm on CT scan. You were treated with heparin, IV before being transitioned to Eliquis, 10 mg, twice a day. A discharge summary will be sent to your primary care physician to ensure continuity of care. Please bring this discharge summary with you to your next office appointment so that your provider can review it at that time. Follow-up appointments: We have requested a follow-up appointment with your primary care physician within one week of discharge. Please call their office if you do not hear from them. Keep all your follow-up appointments as already scheduled. If you cannot make an appointment, notify your provider. Medications: Your medication list has been reviewed and reconciled upon discharge to ensure accuracy and continuity of care. An updated list of all your medications is included with your hospital discharge paperwork. Please review this list closely, and make note of any changes. We sent a new medication called Eliquis (apixaban) to your pharmacy. Take Eliquis (apixaban), 10 mg/2 tablets, twice a day, for five more days, starting on 01/07/24. On 01/12/24 begin taking Eliquis (apixaban), 5 mg/1 tablet, twice a day, regularly for at least three months. Take your medications as instructed; do not skip a dose of your medicines. Make sure all of your doctors know every medicine you are taking (including flji-spo-qxoonli medicines, vitamins, and supplements). Call your primary care provider before taking any new medicines (including qqzs-jiy-ocfzfap medicines, vitamins, and supplements), because some of these may interact with your current medications, or may make your symptoms worse. Tell your primary care provider if you cannot afford your medications. CONTACT YOUR PRIMARY CARE PROVIDER if you experience any of the following: [_] [_] Difficulty following your treatment plan, or difficulty taking medications CALL 911 OR GO TO THE EMERGENCY DEPARTMENT if you experience any of the following: Sudden, severe abdominal pain or nausea/vomiting Severe chest pain, or chest pain that radiates (moves) to your jaw or arm Sudden, severe shortness of breath or difficulty breathing Thank you for allowing us to participate in your care Pending Studies at Discharge: No Stand-Alone Forms: My Mystery[employer], Smoking Cessation Medications and DC Order Prescriptions: New Eliquis 5 mg tablet 5 mg PO BID Qty: 70 0RF Rx Instructions: Take 10 mg (2 tablets) twice a day for five more days starting on morning of 01/06/24. Then take 5 mg (1 tablet), twice a day, regularly for three months. Continued levothyroxine 50 mcg tablet 50 mcg PO DAILY Qty: 90 3RF valsartan 80 mg tablet 80 mg PO DAILY Qty: 90 3RF diltiazem HCl 240 mg capsule,extended release 24 hr 240 mg PO DAILY Qty: 90 3RF escitalopram oxalate 20 mg tablet 20 mg PO DAILY Qty: 90 3RF Probiotic 3 billion cell capsule 3,000 mmu cells PO DAILY Qty: 30 0RF Rx Instructions: administer with a meal cholecalciferol (vitamin D3) 2,000 unit tablet 2,000 units PO DAILY Qty: 30 folic acid 1 mg tablet 1 mg PO DAILY prednisone 10 mg tablet 10 mg PO .COMPLEX Qty: 30 0RF Rx Instructions: Take 4 tab daily x 3 days, then 3 tablets daily x 3 day, then 2 tablets daily x 3 day, 1 tablet x 3 days. Pt started 20mg by mouth daily on 01/04/24 ibuprofen 200 mg tablet 200 mg PO Q6H PRN (Reason: pain/fever) Macular Health Formula 5-1-7.5 mg Capsule 1 cap PO DAILY Discharge Orders: Discharge Order (Routine); Ordered 01/06/24 Ordered By: Yehuda Urena Admission Data Admit Date/Time: 01/05/24 03:03 Attending Provider: Gabriella Garcia Admit Provider: August Pearson Primary Care Provider: Noe Jameson Other Providers: August Pearson Other Interventions: Discharge Summary Assessment (RN) Last Done: 01/06/24 14:18 Supervising Physician Co-Signing Physician Notes I personally examined the patient and verified daniel points of history and exam, discussed case, and agree with decision making and plan documented by Lina Hernandez [facility] and Dr. Herrera. Patient tolerating Eliquis well, she states pain has been resolved, she is breathing well without any cardiorespiratory symptoms. We reviewed increased bleeding risk on anticoagulants. Repeat blood pressure reported 148/98 mmHg on manual cuff, not documented by nursing under vital signs. Discussed with patient the importance of blood pressure control in setting of ascending aorta aneurysm, she is understanding, has home cuff at home to monitor. Patient appears comfortable, lungs clear b/l to auscultation, regular rate and rhythm, no acute distress. Overall patient states back pain has improved, encourage continued efforts to maintain activity as tolerated, she is recommended to follow-up with her PCP within the next week, she is understanding.
== END 2024-01-06 14:38 | disposition home or self-care (01) ==
LOC: ED 21:32 → EDINP 21:32 → SUATTDRO 01-05 03:03 → 2N 01-05 15:49

== ENCOUNTER 2025-07-10 09:34 | Inpatient (IN) ==
[2025-07-10 10:42] LABS: Hematocrit (blood only) 48.6 % (37.0-47.0); Hemoglobin 17.8 g/dL (12.0-16.0); Immature Granulocytes # (auto) 0.09 K/uL (0.01-0.20); Immature Granulocytes % (auto) 0.8 %; Mean Corpuscular Hemoglobin 34.4 pg (25.0-34.0); Mean Corpuscular Volume 93.8 fL (80.0-100.0); Platelet Count 273 K/uL (130-400); RDW Standard Deviation 51.8 fL (36.4-46.3); Red Blood Count 5.18 M/uL (4.20-5.40); White Blood Count 11.37 K/ul (4.8-10.8)
[2025-07-10 11:00] LABS: Alanine Aminotransferase 10 U/L (7-52); Albumin Globulin Ratio 1.0 (0.9-2); Albumin Level 4.5 gm/dl (3.4-5.0); Alkaline Phosphatase 113 U/L (34-104); Anion Gap 21 (3-11); Bilirubin,Total 0.8 mg/dl (0.2-1.0); Blood Urea Nitrogen 71 mg/dl (6-23); Calcium 10.3 mg/dl (8.6-10.3); Carbon Dioxide 12 mmol/L (21-32); Chloride 111 mmol/L (98-107); Globulin 4.4 gm/dl (2.5-4.0); Glucose 148 mg/dl (70-99(Fasting)); Magnesium 3.1 mg/dl (1.7-2.4); Potassium 3.6 mmol/L (3.5-5.1); Sodium 144 mmol/L (136-145); Total Protein 8.9 gm/dl (6.0-8.3)
--- NOTE | 2025-07-10 11:02 | XRay Report ---
XR chest 1V portable CLINICAL HISTORY: Confusion. COMPARISON STUDY: Chest radiograph January 04, 2024. Chest CT January 05, 2024. FINDINGS: No pneumothorax or pleural effusion is present. Linear left basilar densities likely repres ent atelectasis or scarring. There is no evidence for pulmonary edema. A calcified granuloma within t he right lower lobe is benign. There is no pneumothorax or pleural effusion. Cardiomediastinal silhou ette is stable. IMPRESSION: 1. No acute cardiopulmonary findings. 2. Linear left basilar density suggestive of atelectasis or scarring. ACT 112: Negative or not required by law. Electronically signed by: Oscar Aleman M.D. 07/10/2025 11:00 AM
[2025-07-10 11:03] LABS: Acetaminophen < 3 ug/ml (10-30); Salicylate < 3.0 mg/dl (3.0-30)
[2025-07-10 11:08] LABS: INR 1.2 (0.9-1.1); Prothrombin Time 12.3 Seconds (9.0-12.0)
--- NOTE | 2025-07-10 11:12 | Emergency Department Note ---
Impression & Plan AMS (altered mental status), Leukocytosis, GRICEL (acute kidney injury), Diverticulitis of sigmoid colon, Elevated lactic acid level, Elevated procalcitonin, Elevated troponin ED Provider Note HISTORY OF PRESENT ILLNESS: Patient is a 79-year-old female presenting with altered mental status. Patient reportedly came from pain management clinic where she was seen for an injection into her left SI joint. She completed the procedure and afterwards the staff reportedly saw that she was more altered than normal. On arrival to the ER, the patient's supplies more history. Reports she has had progressively worsening confusion over the last 2 to 3 days. No reported recent falls or head injuries. No chiropractic manipulation of her neck. Patient denies any chest pain or shortness of breath. Denies any abdominal pain, nausea or vomiting. Patient is alert to person, place and time. She intermittently says statements that are off topic and is asking for ice cream from [employer]. denies the patient having any complaints of dysuria or hematuria. No reported fevers. ROS: as above PHYSICAL EXAM: Constitutional: Patient appears in no acute distress. HENT: Head: Normocephalic and atraumatic. Eyes: EOMI, PERRL Mouth/Throat: Mucous membranes moist. Neck: Trachea midline. Neck supple. Cardiovascular: RRR, No murmurs, rubs or gallops. Intact distal pulses. Pulmonary/Chest: No respiratory distress. Breath sounds clear and equal bilaterally. No wheezes or rales. Abdominal: Abdomen soft, no tenderness, rebound or guarding. Musculoskeletal: No edema, tenderness or deformity noted. Skin: Warm and dry. No rash, erythema, pallor or cyanosis Psychiatric: Appropriate mood and affect for situation. Neurological: Alert and keenly responsive. CN II-XII grossly intact, moving all extremities equally and fully. MDM: - Vitals signs showed hypertension and tachypnea - History obtained via patient's , given patient's confusion. History as above. - Chronic conditions affecting care: HTN; HLD; hypothyroidism; AAA - Differential diagnoses include, but are not limited to: UTI; pneumonia; ACS; dysrhythmia; CVA; intracranial hemorrhage; electrolyte abnormality; bacteremia - Order placed for continuous cardiac monitoring. At this time, monitor showed rate of 75 bpm with normal sinus rhythm, per my interpretation. - External medical records reviewed. Pain management progress note from today was reviewed. Patient was noted to be more confused than when they previously saw her on 07/08/2025. Patient's reported that their home living situation is not in a state that he can care for her and they have little support at home and they were referred to the emergency department. - EKG image interpreted by myself showed normal sinus rhythm. Rate 84 bpm. QT 398. No acute ischemic changes. - Laboratory workup interpreted by myself showed leukocytosis (WBC 11.37) with neutrophil predominance; elevated INR (1.2); stable electrolytes; GRICEL (Cr 1.59); elevated lactic acid (3.4); elevated troponin (25.9); elevated procalcitonin (0.82); normal lactate; normal TSH; negative salicylate/acetaminophen/alcohol levels - UA negative for infection - UDS positive for THC - Blood cultures obtained - COVIDflu/RSV negative - CXR image reviewed and interpreted by myself negative for pneumonia, per my interpretation - CT head wo contrast negative for acute pathology. - Patient given 1L NS in ER. - Discussion was had with case work aide about patient's case and need for admission - Hospitalist consulted for admission - [facility] ASSESSMENT AND PLAN: Diagnosis: Altered mental status; leukocytosis; GRICEL; elevated lactic acid level; elevated procalcitonin; elevated troponin; sigmoid diverticulitis Plan: admit Past Med/Surg History Problem List (Updated 07/10/25 @ 16:47 by Jennifer Ba MD) Elevated troponin (Acute) Elevated procalcitonin (Acute) Elevated lactic acid level (Acute) Diverticulitis of sigmoid colon (Acute) GRICEL (acute kidney injury) (Acute) Leukocytosis (Acute) AMS (altered mental status) (Acute) Lumbar spinal stenosis Disc degeneration, lumbosacral Degenerative spondylolisthesis Thoracic ascending aortic aneurysm Coronary artery calcification Aortic root dilatation Low Back Pain Pulmonary embolus (Acute) Abdominal aortic aneurysm (AAA) 3.0 cm to 5.0 cm in diameter in female Polymyalgia Arthralgia of multiple sites Single subsegmental pulmonary embolism without acute cor pulmonale Pulmonary embolism on right Encounter for cosmetic procedure Hypothyroidism (acquired) Vitamin D deficiency (Acute) Osteoporosis (Acute) Osteopenia (Acute) HTN (hypertension) (Chronic) Hyperlipidemia (Acute) Depression with anxiety (Acute) Breast hypertrophy in female (Acute) Actinic keratosis (Acute) Medical History Compression fracture of T10 vertebra (~1975) T10 compression fracture that she sustained in her 30s per the pain mgmt note dated 06/05/25. Myofascial pain Sacroiliitis Epigastric abdominal pain Concussion with loss of consciousness Contusion of right shoulder Contusion of hand, right Laceration of lip Contusion of face CHI (closed head injury) Post menopausal problems UTI (urinary tract infection) Hx of upper respiratory infection Foul smelling urine Weakness Fatigue Elevated hemoglobin SOB (shortness of breath) on exertion Lightheadedness Colitis Cough History of Clostridium difficile colitis Surgical History H/O cataract removal with insertion of prosthetic lens 04/2022 S/P tonsillectomy S/P partial colectomy S/P tooth extraction S/P knee surgery Family History Mother Diabetes Macular degeneration Grandmother (Maternal) Macular degeneration Family/Other Osteoporosis Other Myocardial infarction Denies family history of Ovarian cancer Prostate cancer Breast cancer Colorectal cancer Social History Smoking Status: Never smoker Second Hand Exposure: Yes ( smokes cigars); Do You Dip or Chew Tobacco: No; Hx Alcohol Use: Yes Alcohol type: beer and wine Hx Substance Use: No Preferred Language: Albanian Communication Ability: Effective Visual Impairment: No Limitations Hearing Ability: Normal Logistics Operations Director Required: No Beliefs That Will Affect Care: None marital status: Current Living Situation: Spouse current occupational status: retired Feels Safe at Home: Yes Childhood Exposure to Second-Hand Smoke: No Dental Care, Regularly: Yes Physical Activity Frequency: 3-4 Times per Week Seatbelt Use: always Sunscreen Use: Yes Assistive Devices: None Allergies Allergies Allergy/AdvReac Type Severity Reaction Status Date / Time clindamycin Allergy Unknown CAN'T Verified 07/10/25 08:05 REMEMBER codeine Allergy Unknown CAN'T Verified 07/10/25 08:05 REMEMBER oxycodone Allergy Unknown CAN'T Verified 07/10/25 08:05 REMEMBER Penicillins Allergy Unknown CAN'T Verified 07/10/25 08:05 REMEMBER sulfamethoxazole Allergy Unknown CAN'T Verified 07/10/25 08:05 [From Bactrim] REMEMBER Tetracyclines Allergy Unknown CAN'T Verified 07/10/25 08:05 REMEMBER trimethoprim [From Bactrim] Allergy Unknown CAN'T Verified 07/10/25 08:05 REMEMBER Home Meds Home Medications Medication Instructions Recorded Confirmed cholecalciferol (vitamin D3) 50 2,000 units PO DAILY #30 tabs 07/03/19 07/10/25 mcg (2,000 unit) tablet folic acid 1 mg tablet 1 mg PO DAILY 03/27/21 07/10/25 ibuprofen 200 mg tablet 200 mg PO Q6H PRN pain/fever 12/24/23 07/10/25 ncyklltn-wbm-arscfb 5 mg-zeaxanth 1 cap PO DAILY 01/05/24 07/10/25 1 mg-bilberry 7.5 mg-herbal capsule ([employer] Formula) atorvastatin 20 mg tablet 0 mg PO DAILY 06/05/25 07/10/25 romosozumab-aqqg 210 mg/2.34 0 mg subcut ONCE 06/05/25 07/10/25 mL(105 mg/1.17 mL x2)subcutaneous syringe ([facility]) diltiazem HCl 240 mg capsule,24 0 mg PO DAILY 07/10/25 07/10/25 hr,extended release Previous Rx's Medication Instructions Recorded lactobacillus combination no.4 3 3,000 mmu cells PO DAILY #30 caps 10/07/21 billion cell capsule (Probiotic) escitalopram oxalate 20 mg tablet 20 mg PO DAILY #90 tabs 07/06/24 levothyroxine 50 mcg tablet 50 mcg PO DAILY #90 tabs 05/01/25 tizanidine 4 mg tablet 4 mg PO Q8H PRN muscle spasticity 06/12/25 #30 tabs tramadol 50 mg tablet 50 mg PO Q6H PRN pain #30 tabs 06/14/25 gabapentin 100 mg capsule 100 mg PO DAILY #30 caps 06/18/25 meloxicam 7.5 mg tablet 7.5 - 15 mg (1 - 2 x 7.5 mg) PO 07/01/25 DAILY #30 tabs valsartan 160 mg tablet 160 mg PO DAILY #90 tabs 07/08/25 Results & Data (ED) Vital Signs Vital Signs - 24 hr 07/10/25 09:44 07/10/25 09:44 07/10/25 09:54 Pulse Rate 85 82 Pulse Rate [Apical] Respiratory Rate 14 Blood Pressure 165/124 H Blood Pressure [Left Arm] Blood Pressure Mean 137 Blood Pressure Mean [Left Arm] Pulse Oximetry 98 Oxygen Delivery Method Room Air Room Air Sepsis New/Unexplained Change in Mental Status No Sepsis Action Taken by Nursing No Action Required 07/10/25 10:00 07/10/25 10:00 07/10/25 10:30 Pulse Rate 81 83 Pulse Rate [Apical] Respiratory Rate 32 H 35 H Blood Pressure 150/116 H 150/116 H Blood Pressure [Left Arm] Blood Pressure Mean 123 127 Blood Pressure Mean [Left Arm] Pulse Oximetry Oxygen Delivery Method Sepsis New/Unexplained Change in Mental Status Sepsis Action Taken by Nursing 07/10/25 13:00 Pulse Rate Pulse Rate [Apical] 84 Respiratory Rate 18 Blood Pressure Blood Pressure [Left Arm] 151/105 H Blood Pressure Mean Blood Pressure Mean [Left Arm] 120 Pulse Oximetry 98 Oxygen Delivery Method Room Air Sepsis New/Unexplained Change in Mental Status Sepsis Action Taken by Nursing Laboratory Data 07/10/25 09:55 07/10/25 09:55 Lab Results 07/10/25 07/10/25 07/10/25 Range/Units 09:55 10:22 10:38 WBC 11.37 H (4.8-10.8) K/ul RBC 5.18 (4.20-5.40) M/uL Hgb 17.8 H (12.0-16.0) g/dL Hct 48.6 H (37.0-47.0) % MCV 93.8 (80.0-100.0) fL MCH 34.4 H (25.0-34.0) pg MCHC 36.6 H (32.0-36.0) g/dL RDW Std Deviation 51.8 H (36.4-46.3) fL RDW Coeff of [place]iar[place] 15.0 H (11.5-14.5) % Plt Count 273 (130-400) K/uL MPV 11.7 (9.4-12.4) fL Immature Gran % (Auto) 0.8 % Neut % (Auto) 81.3 % Lymph % (Auto) 13.0 % [place] % (Auto) 4.7 % Eos % (Auto) 0.0 % Baso % (Auto) 0.2 % Neut # (Auto) 9.24 H (1.40-6.50) K/uL Lymph # (Auto) 1.48 (1.20-3.40) K/uL [place] # (Auto) 0.54 (0.11-0.59) K/uL Eos # (Auto) 0.00 (0.00-0.50) K/uL Baso # (Auto) 0.02 (0.00-0.20) K/uL Immature Gran # (Auto) 0.09 (0.01-0.20) K/uL PT 12.3 H (9.0-12.0) Seconds INR 1.2 H (0.9-1.1) VBG pH (7.36-7.41) VBG pCO2 (38-50) mmHg VBG pO2 mmHg VBG HCO3 mmol/L VBG O2 Saturation % VBG Base Excess mEq/L Sodium 144 (136-145) mmol/L Potassium 3.6 (3.5-5.1) mmol/L Chloride 111 H (98-107) mmol/L Carbon Dioxide 12 L (21-32) mmol/L Anion Gap 21 H (3-11) BUN 71 H (6-23) mg/dl Creatinine 1.59 H (0.6-1.2) mg/dl Est Cr Clr Drug Dosing Not Reportable eGFR 32.85 BUN/Creatinine Ratio 44.7 H (10-20) Glucose 148 H (70-99(Fasting)) mg/dl Lactate 3.4 H* (0.4-2.0) mmol/L Calcium 10.3 (8.6-10.3) mg/dl Magnesium 3.1 H (1.7-2.4) mg/dl Total Bilirubin 0.8 (0.2-1.0) mg/dl AST 18 (13-39) U/L ALT 10 (7-52) U/L Alkaline Phosphatase 113 H (34-104) U/L Troponin I High Sens 25.9 H (0-14) pg/ml Total Protein 8.9 H (6.0-8.3) gm/dl Albumin 4.5 (3.4-5.0) gm/dl Globulin 4.4 H (2.5-4.0) gm/dl Albumin/Globulin Ratio 1.0 (0.9-2) Procalcitonin 0.82 H (0-0.5) ng/ml TSH 2.622 (0.300-4.500) uIu/ml Urine Color Urine Appearance (Clear) Urine pH (4.5-7.5) Ur Specific [place] (1.000-1.030) Urine Protein (Negative) Urine Glucose (UA) (Negative) Urine Ketones (Negative) Urine Blood (Negative) Urine Nitrite (Negative) Urine Bilirubin (Negative) Urine Urobilinogen (Negative) Ur Leukocyte Esterase (Negative) Urine WBC (Auto) (0-5) /hpf Urine RBC (Auto) (0-2) /hpf U Hyaline Cast (Auto) (0-2) /lpf U Epithel Cells (Auto) (0-2) /hpf Urine Bacteria (Auto) (None Seen) Urine Comment Salicylates < 3.0 L (3.0-30) mg/dl Urine Opiates Screen (Neg) Ur Methadone, Qual (Neg) Urine Fentanyl Screen (Neg) Acetaminophen < 3 L (10-30) ug/ml Urine Barbiturates (Neg) Ur Phencyclidine (PCP) (Neg) U Amphetamin/Meth Scrn (Neg) MDMA (Ecstasy) Screen (Neg) U Benzodiazepines Scrn (Neg) Ur Cocaine Metabolite (Neg) U Marijuana (THC) Screen (Neg) Ethyl Alcohol mg/dL < 10.0 (<10.0) mg/dl SARS-CoV-2 (PCR) NEGATIVE (Negative) Influenza Type A (PCR) Negative (Neg) Influenza Type B (PCR) Negative (Neg) RSV (RT-PCR) Negative (Neg) 07/10/25 07/10/25 07/10/25 Range/Units 11:33 12:05 12:16 WBC (4.8-10.8) K/ul RBC (4.20-5.40) M/uL Hgb (12.0-16.0) g/dL Hct (37.0-47.0) % MCV (80.0-100.0) fL MCH (25.0-34.0) pg MCHC (32.0-36.0) g/dL RDW Std Deviation (36.4-46.3) fL RDW Coeff of Ciarra (11.5-14.5) % Plt Count (130-400) K/uL MPV (9.4-12.4) fL Immature Gran % (Auto) % Neut % (Auto) % Lymph % (Auto) % [place] % (Auto) % Eos % (Auto) % Baso % (Auto) % Neut # (Auto) (1.40-6.50) K/uL Lymph # (Auto) (1.20-3.40) K/uL [place] # (Auto) (0.11-0.59) K/uL Eos # (Auto) (0.00-0.50) K/uL Baso # (Auto) (0.00-0.20) K/uL Immature Gran # (Auto) (0.01-0.20) K/uL PT (9.0-12.0) Seconds INR (0.9-1.1) VBG pH 7.43 H (7.36-7.41) VBG pCO2 20 L (38-50) mmHg VBG pO2 29 mmHg VBG HCO3 13 mmol/L VBG O2 Saturation < 60.0 % VBG Base Excess -8.0 mEq/L Sodium (136-145) mmol/L Potassium (3.5-5.1) mmol/L Chloride (98-107) mmol/L Carbon Dioxide (21-32) mmol/L Anion Gap (3-11) BUN (6-23) mg/dl Creatinine (0.6-1.2) mg/dl Est Cr Clr Drug Dosing eGFR BUN/Creatinine Ratio (10-20) Glucose (70-99(Fasting)) mg/dl Lactate 2.8 H* (0.4-2.0) mmol/L Calcium (8.6-10.3) mg/dl Magnesium (1.7-2.4) mg/dl Total Bilirubin (0.2-1.0) mg/dl AST (13-39) U/L ALT (7-52) U/L Alkaline Phosphatase (34-104) U/L Troponin I High Sens 27.3 H (0-14) pg/ml Total Protein (6.0-8.3) gm/dl Albumin (3.4-5.0) gm/dl Globulin (2.5-4.0) gm/dl Albumin/Globulin Ratio (0.9-2) Procalcitonin (0-0.5) ng/ml TSH (0.300-4.500) uIu/ml Urine Color Yellow Urine Appearance Clear (Clear) Urine pH 6.0 (4.5-7.5) Ur Specific [place] 1.022 (1.000-1.030) Urine Protein 1+ H (Negative) Urine Glucose (UA) Negative (Negative) Urine Ketones Trace H (Negative) Urine Blood Trace H (Negative) Urine Nitrite Negative (Negative) Urine Bilirubin Negative (Negative) Urine Urobilinogen Negative (Negative) Ur Leukocyte Esterase Trace H (Negative) Urine WBC (Auto) 0-5 (0-5) /hpf Urine RBC (Auto) 0-2 (0-2) /hpf U Hyaline Cast (Auto) 3-5 H (0-2) /lpf U Epithel Cells (Auto) 0-2 (0-2) /hpf Urine Bacteria (Auto) None Seen (None Seen) Urine Comment Salicylates (3.0-30) mg/dl Urine Opiates Screen Neg (Neg) Ur Methadone, Qual Neg (Neg) Urine Fentanyl Screen Neg (Neg) Acetaminophen (10-30) ug/ml Urine Barbiturates Neg (Neg) Ur Phencyclidine (PCP) Neg (Neg) U Amphetamin/Meth Scrn Neg (Neg) MDMA (Ecstasy) Screen Neg (Neg) U Benzodiazepines Scrn Neg (Neg) Ur Cocaine Metabolite Neg (Neg) U Marijuana (THC) Screen Pos H (Neg) Ethyl Alcohol mg/dL (<10.0) mg/dl SARS-CoV-2 (PCR) (Negative) Influenza Type A (PCR) (Neg) Influenza Type B (PCR) (Neg) RSV (RT-PCR) (Neg) Administered Medications Diltiazem HCl (Diltiazem Hcl 240 Mg Capcr) 240 mg PO QAM ANSELMO Stop: 08/09/25 14:29 Last Admin: 07/10/25 15:19 Dose: 240 mg Documented By: ijw Discontinued Medications Sodium Chloride (Nss) 1,000 mls @ 999 mls/hr IV .Q1H1M ONE Stop: 07/10/25 11:58 Last Infusion: 07/10/25 13:33 Dose: Infused Documented By: amg Admin: 07/10/25 12:10 Dose: 999 mls/hr Documented By: leandra Ceftriaxone Sodium (Rocephin) 2,000 mg in 50 mls @ 100 mls/hr IV NOW STA Stop: 07/10/25 12:13 Last Infusion: 07/10/25 13:33 Dose: Infused Documented By: leandra Admin: 07/10/25 12:10 Dose: 100 mls/hr Documented By: leandra Lactated Ringer's (Lr) 1,000 mls @ 999 mls/hr IV .Q1H1M ONE Stop: 07/10/25 14:03 Last Admin: 07/10/25 13:33 Dose: 999 mls/hr Documented By: leandra Ioversol (Optiray 320 100ml) 90 ml IV ONCE ONE Stop: 07/10/25 14:40 Last Admin: 07/10/25 14:39 Dose: 90 ml Documented By: [email or web address] Imaging Data Radiologist's Impression: Chest X-Ray 07/10/25 10:16 XR chest 1V portable CLINICAL HISTORY: Confusion. COMPARISON STUDY: Chest radiograph January 04, 2024. Chest CT January 05, 2024. FINDINGS: No pneumothorax or pleural effusion is present. Linear left basilar densities likely represent atelectasis or scarring. There is no evidence for pulmonary edema. A calcified granuloma within the right lower lobe is benign. There is no pneumothorax or pleural effusion. Cardiomediastinal silhouette is stable. IMPRESSION: 1. No acute cardiopulmonary findings. 2. Linear left basilar density suggestive of atelectasis or scarring. ACT 112: Negative or not required by law. Electronically signed by: Oscar Aleman M.D. 07/10/2025 11:[address] 07/10/25 10:16 CT SCAN OF THE BRAIN WITHOUT IV CONTRAST CLINICAL HISTORY: Confusion. COMPARISON STUDY: Head CT April 15, 2025. TECHNIQUE: Unenhanced axial CT scan of the brain was performed from the vertex to the skull base. A dose lowering technique was utilized adhering to the principles of ALARA. CT DOSE: 625.8 mGy.cm FINDINGS: Brain parenchyma: No acute intracranial hemorrhage, midline shift or mass effect is present. Oglesby-white matter differentiation is preserved. There are no extra- axial fluid collections. There are no findings to suggest acute dural sinus thrombosis or acute territorial infarct. White matter hypodensities are unchanged and favor small vessel disease. An 8 mm hypodense focus within the anterior left thalamus is unchanged. 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 Ventricles, sulci, cisterns: There is no hydrocephalus. The basal cisterns are patent. Calvarium: Unremarkable. Sinuses and mastoids: The visualized paranasal sinuses are clear. The mastoid air cells are well pneumatized. Orbits: The bony orbits are grossly intact. IMPRESSION: No acute intracranial findings. No change in appearance of the brain. ACT 112: Negative or not required by law. Electronically signed by: Oscar Aleman M.D. 07/10/2025 11:28 AM Abdomen/Pelvis CT 07/10/25 13:39 CT SCAN OF THE ABDOMEN AND PELVIS WITH IV CONTRAST CLINICAL HISTORY: Generalized abdominal pain. Decreased appetite. COMPARISON STUDY: Abdominal CT dated 02/14/2014. Chest CT dated 01/05/2024. TECHNIQUE: Following the IV administration of 90 cc of Optiray 320, CT scan of the abdomen and pelvis is performed from the lung bases to the proximal femora. Images are reviewed in the axial, sagittal, and coronal planes. IV contrast was administered without complication. A dose lowering technique was utilized adhering to the principles of ALARA. CT DOSE: 598.97 mGy.cm FINDINGS: Lung bases: The heart is top normal in size noting a small pericardial effusion. A 2.5 cm opacity is partially visualized in left lower lobe on image #1. There are scattered calcified granulomas. Scarring/atelectasis is seen at both lung bases. There is moderate is mild dilatation of the distal descending thoracic aorta which measures up to 3.6 cm in diameter. Liver: The contrast-enhanced liver is normal in size, contour, and attenuation. There is no intrahepatic biliary ductal dilatation. The hepatic veins and portal veins are patent. There are calcified hepatic granulomas. Gallbladder: The gallbladder is distended but otherwise normal as imaged. Spleen: Normal in size and attenuation. There are numerous calcified splenic granulomas. Pancreas: Mildly atrophic and grossly unremarkable. Adrenal glands: Unremarkable. Kidneys: The contrast enhanced kidneys are normal in size and without hydronephrosis. The kidneys enhance symmetrically. A circumaortic left renal vein is incidentally noted. No renal calculi are identified on this contrast- enhanced examination. Abdominal vasculature: The abdominal aorta is normal in course and caliber noting moderate to advanced atherosclerotic calcification. Bowel: There is moderate colonic diverticulosis. There is mild wall thickening with pericolonic inflammation involving the proximal sigmoid colon in the left lower quadrant on image #240 suggesting mild acute diverticulitis. There is a 2 cm ovoid slightly hyperdense structure along the sigmoid colon at the site seen on image #244. This was not seen previously and is of indeterminate etiology/edematous. There is no fluid collection to suggest abscess. No bowel obstruction is seen. The appendix is not visualized. Peritoneum: There is no intraperitoneal free air or abdominal ascites. Lymphadenopathy: None. Pelvic viscera: There is a 4 mm calculus within the bladder lumen seen on image #279. The bladder is distended but otherwise normal as imaged. There are uterine fibroids. The ovaries are normal as visualized. Skeletal structures: The skeletal structures are osteopenic. There is mild lumbosacral spondylosis. Degenerative sclerosis is noted in the sacroiliac joints. No lytic or blastic lesions are seen. IMPRESSION: 1. Colonic diverticulosis with evidence of mild acute sigmoid diverticulitis. 2. No intraperitoneal free air is identified and there is no fluid collection to suggest abscess. 3. There is an indeterminant 2 cm ovoid hyperdense structure involving the sigmoid colon at the site of diverticulitis. This was not seen on the 2014 examination and is of indeterminate etiology/significance. A nonemergent follow- up colonoscopy is recommended for reassessment and to evaluate the underlying mucosa. 4. There is an indeterminant partially imaged 2.5 cm opacity at the left lung base. This could represent scarring/atelectasis or possibly an infectious/inflammatory pneumonitis. A follow-up chest CT in 2-3 months time is recommended for reassessment and full evaluation of pneumothorax. 5. There is mild aneurysmal dilatation of the distal descending thoracic aorta which measures up to 3.7 cm in diameter. 6. There is a 4 mm calculus within the bladder lumen. Correlate with clinical findings an urinalysis for evidence of a recently passed kidney stone. 7. Additional findings as above. ACT 112: Negative or not required by law. Electronically signed by: Brandyn Mcdonald M.D. 07/10/2025 3:32 PM Discharge Plan Visit Data Chief Complaint: Illness Stated Complaint: decreased mental status ED Provider: Jennifer Ba Discharge Problem: AMS (altered mental status), Leukocytosis, GRICEL (acute kidney injury), Diverticulitis of sigmoid colon, Elevated lactic acid level, Elevated procalcitonin, Elevated troponin Patient Disposition: Admitted As Inpatient Condition: Fair Discharge Instructions Interventions: ED Discharge Assessment Last Done: 07/10/25 14:46
[2025-07-10 11:14] LABS: Thyroid Stimulating Hormone 2.622 uIu/ml (0.300-4.500)
--- NOTE | 2025-07-10 11:30 | CT Scan Report ---
CT SCAN OF THE BRAIN WITHOUT IV CONTRAST CLINICAL HISTORY: Confusion. COMPARISON STUDY: Head CT April 15, 2025. TECHNIQUE: Unenhanced axial CT scan of the brain was performed from the vertex to the skull base. A dose lowering technique was utilized adhering to the principles of ALARA. CT DOSE: 625.8 mGy.cm FINDINGS: Brain parenchyma: No acute intracranial hemorrhage, midline shift or mass effect is present. Oglesby-whi te matter differentiation is preserved. There are no extra-axial fluid collections. There are no find ings to suggest acute dural sinus thrombosis or acute territorial infarct. White matter hypodensities are unchanged and favor small vessel disease. An 8 mm hypodense focus within the anterior left thala mus is unchanged. 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 Ventricles, sulci, cisterns: There is no hydrocephalus. The basal cisterns are patent. Calvarium: Unremarkable. Sinuses and mastoids: The visualized paranasal sinuses are clear. The mastoid air cells are well pneu matized. Orbits: The bony orbits are grossly intact. IMPRESSION: No acute intracranial findings. No change in appearance of the brain. ACT 112: Negative or not required by law. Electronically signed by: Oscar Aleman M.D. 07/10/2025 11:28 AM
[2025-07-10 11:46] LABS: Base Excess VBG -8.0 mEq/L; HCO3 VBG 13 mmol/L; Oxygen Saturation VBG < 60.0 %; PCO2 VBG 20 mmHg (38-50); PO2 VBG 29 mmHg; pH VBG 7.43 (7.36-7.41)
[2025-07-10 11:55] LABS: Influenza A virus by PCR Negative (Neg); Influenza B virus by PCR Negative (Neg); SARS CoV2 RNA(COVID-19) Ceph NEGATIVE (Negative)
[2025-07-10] MEDS: SODIUM CHLORIDE 0.9% 1,000 ML IV ONE (12:10)
[2025-07-10] MEDS: cefTRIAXone SODIUM 2,000 MG/50 ML BAG IV STA (12:10)
[2025-07-10 12:39] LABS: Appearance Urine Clear (Clear); Bacteria Urine Automated None Seen (None Seen); Epithelial Cell Urine Auto 0-2 /hpf (0-2); Glucose Urine UA Negative (Negative); RBC Urine Automated 0-2 /hpf (0-2); WBC Urine Automated 0-5 /hpf (0-5)
[2025-07-10 13:11] LABS: Amphetamines+Metham, Urine Neg (Neg); MDMA (Ecstacy), Urine Neg (Neg); Marijuana, Urine Pos (Neg)
[2025-07-10] MEDS: LACTATED RINGER'S 1,000 ML IV ONE ×2 (13:33→16:56)
--- NOTE | 2025-07-10 13:55 | History & Physical Report ---
Date of Service July 10, 2025 Assessment & Plan (1) Sepsis: (2) Diverticulitis: (3) AMS (altered mental status): (4) GRICEL (acute kidney injury): Plan Laisha is a 79F with a PMHx of hypothyroidism, osteopetrosis, HTN, hx of PE (no anticoagulation), depression/anxiety, and SI joint pain who presents from the pain management office with concerns for AMS. Initial evaluation concerning for elevated procal, leukocytosis, and GRICEL with hemoconcentration. CT A/p concerning for acute diverticulitis and possible kidney stone in the bladder. Admit for IV antibiotics, IV hydration, further workup and possible placement. #Sepsis from Diverticulitis | 2cm lesion of sigmoid colon | acute metabolic and toxic encephalopathy - with leukocytosis, positive procal, elevated lactate (3.4) with metabolic acidosis, and tachypnea on admission. Has a history of ting wel surgery due to diverticulitis in her 30s. Continue Ceftriaxone, add Flagyl Suspect encephalopathy related to infection, dehydration, pain medications and muscle relaxers- TSH Okay, old stroke on CT - no acute process Consult GI Blood cultures pending Follow CBC, BMP, lactate in the a.m. Clear liquids diet for diverticulitis #GRICEL | Elevated troponin - Cr 1.59 on admission with baseline 1.1 IVF bolus - 3L, continue maintenance fluids after With evidence of hemoconcentration - elevated hgb and Mag Troponin elevation - no EKG changes, no chest pain. Suspected related to poor renal clearance Hold NSAIDs, and valsartan AM BMP #Possible kidney stone - 4mm stone seen in bladder, ? if passing stone contributing to her recent back pain exacerbation Flomax now IV fluids as above for GRICEL strain all urine #Back pain - s/p steroid injection 07/[address] Story Lidocaine patch, prn tylenol hold gabapentin with AMS avoid NSAIDs with GRICEL will try to avoid narcotics,etc with AMS #Lung opacity - 2.5cm nodule in the left lower lung partially imaged on CT A/P Check Chest CT non con #Complex care needs - reports not being able to take care of Laisha at home. He needs to return to work in July. no local family or friend support. On admission - unclear patient functional or mental baseline PT/OT CM #HTN - with elevation of BP on admission continue Diltiazem hold valsartan with GRICEL #Marijuana use - positive on UDS, reports one time use last week to try to help with pain - unsuccessful. Also may be contributing to encephalopathy #Hypothyroidism -TSH here normal at 2.6 - Continue home levothyroxine 50 mcg daily #Anxiety disorder - Continue Lexapro 20 mg daily Dispo: admit to med/tele DVT proph: lovenox discussed with on admission History of Present Illness Chief Complaint: AMS, pain Primary Care Provider: Noe Jameson MD Laisha is a 79F with a PMHx of hypothyroidism, osteopetrosis, HTN, hx of PE (no anticoagulation), depression/anxiety, and SI joint pain who presents from the pain management office with concerns for AMS. Per ED report, patient was confused and minimally responsive and sent over from the office. Patient is able to tell me she is in the hospital and and thinks she is here because she has not been able to eat or drink in 8 weeks. When asked if she has talked to anyone about this she had said no. Complains of being thirsty - says she was not allowed to drink because of her procedure. She does not know if she took her medications this morning. She does not think she has had fevers at home. She denies abd pain. Spoke with for collateral - confusion has been getting worse over the last weeks. Trouble taking care of her and managing her pain at home. Did try marijuana last week for the pain and did not help. DId not take her medication at home. Spoke with Dr. Story - for additional collateral, just met the patient tuesday, but could notice a sharp decline since then. admits to needing more help. Patient defers to for many answers. ED course: 1L NSS ceftriaxone 2g IV Allergies Allergy/AdvReac Type Severity Reaction Status Date / Time clindamycin Allergy Unknown CAN'T Verified 07/10/25 08:05 REMEMBER codeine Allergy Unknown CAN'T Verified 07/10/25 08:05 REMEMBER oxycodone Allergy Unknown CAN'T Verified 07/10/25 08:05 REMEMBER Penicillins Allergy Unknown CAN'T Verified 07/10/25 08:05 REMEMBER sulfamethoxazole Allergy Unknown CAN'T Verified 07/10/25 08:05 [From Bactrim] REMEMBER Tetracyclines Allergy Unknown CAN'T Verified 07/10/25 08:05 REMEMBER trimethoprim [From Bactrim] Allergy Unknown CAN'T Verified 07/10/25 08:05 REMEMBER Home Medications Medication Instructions Recorded Confirmed Type cholecalciferol (vitamin D3) 50 2,000 units PO DAILY #30 tabs 07/03/19 07/10/25 History mcg (2,000 unit) tablet folic acid 1 mg tablet 1 mg PO DAILY 03/27/21 07/10/25 History lactobacillus combination no.4 3 3,000 mmu cells PO DAILY #30 caps 10/07/21 07/10/25 Rx billion cell capsule (Probiotic) ibuprofen 200 mg tablet 200 mg PO Q6H PRN pain/fever 12/24/23 07/10/25 History imsoulna-dub-ssgqjk 5 mg-zeaxanth 1 cap PO DAILY 01/05/24 07/10/25 History 1 mg-bilberry 7.5 mg-herbal capsule (Macular Health Formula) escitalopram oxalate 20 mg tablet 20 mg PO DAILY #90 tabs 07/06/24 07/10/25 Rx levothyroxine 50 mcg tablet 50 mcg PO DAILY #90 tabs 05/01/25 07/10/25 Rx atorvastatin 20 mg tablet 0 mg PO DAILY 06/05/25 07/10/25 History romosozumab-aqqg 210 mg/2.34 0 mg subcut ONCE 06/05/25 07/10/25 History mL(105 mg/1.17 mL x2)subcutaneous syringe (Evenity) tizanidine 4 mg tablet 4 mg PO Q8H PRN muscle spasticity 06/12/25 07/10/25 Rx #30 tabs tramadol 50 mg tablet 50 mg PO Q6H PRN pain #30 tabs 06/14/25 07/10/25 Rx gabapentin 100 mg capsule 100 mg PO DAILY #30 caps 06/18/25 07/10/25 Rx meloxicam 7.5 mg tablet 7.5 - 15 mg (1 - 2 x 7.5 mg) PO 07/01/25 07/10/25 Rx DAILY #30 tabs valsartan 160 mg tablet 160 mg PO DAILY #90 tabs 07/08/25 07/10/25 Rx diltiazem HCl 240 mg capsule,24 0 mg PO DAILY 07/10/25 07/10/25 History hr,extended release Past Med/Surg History Problem List (Updated 07/10/25 @ 17:42 by Cari Jonas PA-C) Diverticulitis Sepsis Elevated troponin (Acute) Elevated procalcitonin (Acute) Elevated lactic acid level (Acute) Diverticulitis of sigmoid colon (Acute) GRICEL (acute kidney injury) (Acute) Leukocytosis (Acute) AMS (altered mental status) (Acute) Lumbar spinal stenosis Disc degeneration, lumbosacral Degenerative spondylolisthesis Thoracic ascending aortic aneurysm Coronary artery calcification Aortic root dilatation Low Back Pain Pulmonary embolus (Acute) Abdominal aortic aneurysm (AAA) 3.0 cm to 5.0 cm in diameter in female Polymyalgia Arthralgia of multiple sites Single subsegmental pulmonary embolism without acute cor pulmonale Pulmonary embolism on right Encounter for cosmetic procedure Hypothyroidism (acquired) Vitamin D deficiency (Acute) Osteoporosis (Acute) Osteopenia (Acute) HTN (hypertension) (Chronic) Hyperlipidemia (Acute) Depression with anxiety (Acute) Breast hypertrophy in female (Acute) Actinic keratosis (Acute) Medical History Compression fracture of T10 vertebra (~1975) T10 compression fracture that she sustained in her 30s per the pain mgmt note dated 06/05/25. Myofascial pain Sacroiliitis Epigastric abdominal pain Concussion with loss of consciousness Contusion of right shoulder Contusion of hand, right Laceration of lip Contusion of face CHI (closed head injury) Post menopausal problems UTI (urinary tract infection) Hx of upper respiratory infection Foul smelling urine Weakness Fatigue Elevated hemoglobin SOB (shortness of breath) on exertion Lightheadedness Colitis Cough History of Clostridium difficile colitis Surgical History H/O cataract removal with insertion of prosthetic lens 04/2022 S/P tonsillectomy S/P partial colectomy S/P tooth extraction S/P knee surgery Family History Mother Diabetes Macular degeneration Grandmother (Maternal) Macular degeneration Family/Other Osteoporosis Other Myocardial infarction Denies family history of Ovarian cancer Prostate cancer Breast cancer Colorectal cancer Social History Smoking Status: Never smoker Second Hand Exposure: No; Do You Dip or Chew Tobacco: No; Tobacco Cessation Education Requested by Patient: No Hx Alcohol Use: Yes Alcohol type: beer and wine Hx Substance Use: Yes Last Used Substance: Days (ago) Last Used Substance Other:: per pt a few days ago used marijuana gummies Preferred Language: Setswana Communication Ability: Effective Visual Impairment: No Limitations Hearing Ability: Normal Classifications Officer Cc/Cm Required: No Beliefs That Will Affect Care: None marital status: Current Living Situation: Spouse Current Living Situation Comment: lives with Corby current occupational status: retired Other Information That Helps Us Care for You: No Feels Safe at Home: Yes Safety Concerns: Feels Safe At This Time Childhood Exposure to Second-Hand Smoke: No Dental Care, Regularly: Yes Physical Activity Frequency: 3-4 Times per Week Seatbelt Use: always Sunscreen Use: Yes Assistive Devices: None Review of Systems Review of Systems: All systems reviewed & are unremarkable except as noted in Subjective Physical Exam Physical Exam: General: NAD, VS as above Resp: normal respiratory effort, lungs clear to auscultation CV: RRR, no murmur, Abd: normal bowel sounds, soft, mild left LLQ tenderness Extremities: Moves all extremities, no edema Neuro: A&O x2, Skin: intact, no lesions noted Results & Data Results & Data Vital Signs (Past 12 Hours) Vital Signs Pulse Pulse Resp BP BP Pulse Ox O2 Del Method 07/10/25 13:00 84 18 151/105 H 98 Room Air 07/10/25 10:30 83 35 H 150/116 H 07/10/25 10:00 81 32 H 07/10/25 10:00 150/116 H 07/10/25 09:54 82 07/10/25 09:44 Room Air 07/10/25 09:44 85 14 165/124 H 98 Room Air Laboratory Results cbc, chemistry reviewed procal reviewed UA and UDS reviewed Diagnostic Findings cxr reviewed CT A/P reviewed Code Status & VTE Plan Code Status Full code VTE Prophylaxis Plan VTE Prophylaxis will be ordered: Yes Supervising Physician Co-Signing Physician Notes PA Supervision Note: I personally saw and examined the patient. I verified all daniel points and agree with BRADLEY Jonas with the following exceptions and/or additions: S-Pt p/w confusion progressively worsening, very poor p.o. intake after suffering from lower back pain for the last 6 to 8 weeks she is anxious and tearful and questions of her will be coming back to visit her in the morning and wants to know if I can "threaten him" to come back again to be with her. She reports some abdominal pain. Ongoing lower back pain. No headache, chest pain, shortness of breath. History and ROS otherwise reviewed as above O- Vitals reviewed Gen: AAOx2, NAD HEENT: Anicteric sclerae, EOMI, PERRLA CV: RRR no mgr nl S1S2 Pulm: CTAB no wcr Abd: +BS soft mild TTP LLQ without guarding or rebound, ND no masses or hernias Ext: No edema, 2+ DP pulses Skin: No rashes, warm/dry Neuro: Full strength throughout, confused, tearful and anxious A/I-5-bpnv-old female here with acute metabolic and toxic encephalopathy, GRICEL, severe dehydration, sepsis, acute diverticulitis with possible sigmoid mass. - Hydrate with fluids, follow serial lactate - Hold PICKLE SOLUTION MAKER depressing medications such as gabapentin, tizanidine, tramadol - Treat with antibiotics for diverticulitis and consult GI for possible colonoscopy - Follow elevated blood pressures and add on amlodipine or resume home valsartan if GRICEL resolves - Supportive care - PT/OT PG Care Time/CCT Total # of Minutes Spent Total Time Spent with Patient: Total time spent is greater than 50% in coordination of care (as documented) at patient's floor/unit and/or counseling patient: Coding Level of Care Code 35094 INT INP/OBS CARE 3/75MIN Diagnoses Sepsis A41.9 Diverticulitis K57.92 AMS (altered mental status) R41.82 GRICEL (acute kidney injury) N17.9
[2025-07-10] MEDS: OPTIRAY 320 100ml IV ONE (14:39)
--- NOTE | 2025-07-10 15:34 | CT Scan Report ---
CT SCAN OF THE ABDOMEN AND PELVIS WITH IV CONTRAST CLINICAL HISTORY: Generalized abdominal pain. Decreased appetite. COMPARISON STUDY: Abdominal CT dated 02/14/2014. Chest CT dated 01/05/2024. TECHNIQUE: Following the IV administration of 90 cc of Optiray 320, CT scan of the abdomen and pelvi s is performed from the lung bases to the proximal femora. Images are reviewed in the axial, sagittal , and coronal planes. IV contrast was administered without complication. A dose lowering technique wa s utilized adhering to the principles of ALARA. CT DOSE: 598.97 mGy.cm FINDINGS: Lung bases: The heart is top normal in size noting a small pericardial effusion. A 2.5 cm opacity is partially visualized in left lower lobe on image #1. There are scattered calcified granulomas. Scarri ng/atelectasis is seen at both lung bases. There is moderate is mild dilatation of the distal descend ing thoracic aorta which measures up to 3.6 cm in diameter. Liver: The contrast-enhanced liver is normal in size, contour, and attenuation. There is no intrahepa tic biliary ductal dilatation. The hepatic veins and portal veins are patent. There are calcified hep atic granulomas. Gallbladder: The gallbladder is distended but otherwise normal as imaged. Spleen: Normal in size and attenuation. There are numerous calcified splenic granulomas. Pancreas: Mildly atrophic and grossly unremarkable. Adrenal glands: Unremarkable. Kidneys: The contrast enhanced kidneys are normal in size and without hydronephrosis. The kidneys enh ance symmetrically. A circumaortic left renal vein is incidentally noted. No renal calculi are identi fied on this contrast-enhanced examination. Abdominal vasculature: The abdominal aorta is normal in course and caliber noting moderate to advance d atherosclerotic calcification. Bowel: There is moderate colonic diverticulosis. There is mild wall thickening with pericolonic infla mmation involving the proximal sigmoid colon in the left lower quadrant on image #240 suggesting mild acute diverticulitis. There is a 2 cm ovoid slightly hyperdense structure along the sigmoid colon at the site seen on image #244. This was not seen previously and is of indeterminate etiology/edematous . There is no fluid collection to suggest abscess. No bowel obstruction is seen. The appendix is not visualized. Peritoneum: There is no intraperitoneal free air or abdominal ascites. Lymphadenopathy: None. Pelvic viscera: There is a 4 mm calculus within the bladder lumen seen on image #279. The bladder is distended but otherwise normal as imaged. There are uterine fibroids. The ovaries are normal as visu alized. Skeletal structures: The skeletal structures are osteopenic. There is mild lumbosacral spondylosis. D egenerative sclerosis is noted in the sacroiliac joints. No lytic or blastic lesions are seen. IMPRESSION: 1. Colonic diverticulosis with evidence of mild acute sigmoid diverticulitis. 2. No intraperitoneal free air is identified and there is no fluid collection to suggest abscess. 3. There is an indeterminant 2 cm ovoid hyperdense structure involving the sigmoid colon at the site of diverticulitis. This was not seen on the 2014 examination and is of indeterminate etiology/signifi cance. A nonemergent follow-up colonoscopy is recommended for reassessment and to evaluate the underl anamaria mucosa. 4. There is an indeterminant partially imaged 2.5 cm opacity at the left lung base. This could repres ent scarring/atelectasis or possibly an infectious/inflammatory pneumonitis. A follow-up chest CT in 2-3 months time is recommended for reassessment and full evaluation of pneumothorax. 5. There is mild aneurysmal dilatation of the distal descending thoracic aorta which measures up to 3 .7 cm in diameter. 6. There is a 4 mm calculus within the bladder lumen. Correlate with clinical findings an urinalysis for evidence of a recently passed kidney stone. 7. Additional findings as above. ACT 112: Negative or not required by law. Electronically signed by: Brandyn Mcdonald M.D. 07/10/2025 3:32 PM
[2025-07-10] MEDS: LIDOCAINE 5% 1 PATCH TD SCH (16:53)
[2025-07-10] MEDS: TAMSULOSIN HCL 0.4 MG CAP PO ONE (16:53)
[2025-07-10] MEDS: metroNIDAZOLE 500 MG/100 ML BAG IV SCH (16:53)
[2025-07-10] MEDS: ONDANSETRON INJ 2 MG/ML 2 ML VIAL IV PRN (16:56)
[2025-07-10] MEDS: ENOXAPARIN INJ 40 MG/0.4 ML SYR SQ ONE (17:56)
--- NOTE | 2025-07-10 18:28 | CT Scan Report ---
CT chest without contrast Technique: Noncontrast axial images of the chest. Coronal and sagittal reformatted images made available for review Comparison made to prior exam dated 01/05/2024 Findings: Trace pericardial effusion. Coronary artery calcifications. Calcified granuloma right lower lobe. No focal infiltrates or effusions. Linear atelectasis in the right lower lobe and lingula.; Unchanged from prior exam Limited evaluation of her abdomen demonstrates calcified splenic and hepatic granuloma. Bone windows demonstrate no focal abnormality. Impression: no acute pulmonary pathology Electronically signed by Jaguar Rivas 07-10-2025 6:27 PM
[2025-07-10] MEDS: Patient's HEIGHT &/or WEIGHT Needed STA (18:30)
[2025-07-10] MEDS: LACTATED RINGER'S 1,000 ML IV SCH (21:26)
[2025-07-10] MEDS: REMOVE LIDODERM PATCH SCH (21:26)
[2025-07-11] MEDS ORDERED: PHA DELIRIUM CONSULT PRN (01:45)
[2025-07-11] MEDS: LEVOTHYROXINE SODIUM 50 MCG TABLET PO SCH (05:28)
[2025-07-11 06:45] LABS: Hematocrit (blood only) 36.9 % (37.0-47.0); Hemoglobin 13.2 g/dL (12.0-16.0); Mean Corpuscular Hemoglobin 34.1 pg (25.0-34.0); Mean Corpuscular Volume 95.3 fL (80.0-100.0); Platelet Count 173 K/uL (130-400); RDW Standard Deviation 52.8 fL (36.4-46.3); Red Blood Count 3.87 M/uL (4.20-5.40); White Blood Count 9.87 K/ul (4.8-10.8)
[2025-07-11 06:50] LABS: Anion Gap 11.0 (3-11); Blood Urea Nitrogen 44.0 mg/dl (6-23); Calcium 8.4 mg/dl (8.6-10.3); Carbon Dioxide 17.0 mmol/L (21-32); Chloride 116.0 mmol/L (98-107); Creatinine Clr Calc Pharmacy 37.5 ml/min; Glucose 109.0 mg/dl (70-99(Fasting)); Potassium 3.4 mmol/L (3.5-5.1); Sodium 144.0 mmol/L (136-145)
[2025-07-11] MEDS: ESCITALOPRAM OXALATE 20 MG TAB PO SCH (09:04)
[2025-07-11] MEDS: FOLIC ACID 1 MG TAB PO SCH (09:04)
[2025-07-11] MEDS: ATORVASTATIN 20 MG TAB PO SCH (09:04)
[2025-07-11] MEDS: cefTRIAXone SODIUM 2,000 MG/50 ML BAG IV SCH (10:54)
--- NOTE | 2025-07-11 11:21 | Gastrointestinal Consultation ---
Date of Consultation July 11, 2025 Assessment & Plan (1) Diverticulitis: Plan Patient admitted due to altered mental status. Imaging suggestive of diverticulitis with lesion noted in area of the sigmoid colon. Patient is difficult to obtain history from when I saw her today. - recommend supportive care and continuation of antibiotics. - would recommend a colonoscopy to evaluate the sigmoid area in a few weeks, following the resolution of the diverticulitis. - Further recommendations to come with Supervising GI provider on medical rounds. Please see co-signature comments. Supervising Physician Co-Signing Physician Notes Continue treatment along the lines of diverticulitis. Will review images with Radiology. If there is high suggestion of a sigmoid mass patient may benefit from a flexible sigmoidoscopy as inpatient to exclude neoplasm. Otherwise outpatient colonoscopy in 4 to 6 weeks History of Present Illness Reason for Consultation: sigmoid mass, 2 cm, poor intake x 8 weeks. Requesting Physician: Cari MONTEJO Attending Physician: Rachel Villagomez MD History of Present Illness Patient is a 79 year old female with a past medical history of hypothyroidism, osteoporosis, HTN, PE (no anticoagulation), depression/anxiety, and SI joint pain who presented to the ED on 07/10 from the pain management office with concerns for altered mental status. Patient seems to be a poor historian with some flight of thoughts when talking with her. History obtained from both her and from chart. There has also been some concern for decreased oral intake per chart. Upon evaluation, she had a CT concerning for acute diverticulitis, 2 cm lesion of sigmoid, and possible kidney stone in the bladder. Admit for IV antibiotics, IV hydration, further workup and possible placement. 07/11/25 wbc 9.87, hgb 13.2, hct 36.9, plts 173, Na 144, K 3.4, BUN 44, Cr 1.04. C diff pending. 07/11/25 CT A/P 1. Colonic diverticulosis with evidence of mild acute sigmoid diverticulitis. 2. No intraperitoneal free air is identified and there is no fluid collection to suggest abscess. 3. There is an indeterminant 2 cm ovoid hyperdense structure involving the sigmoid colon at the site of diverticulitis. This was not seen on the 2014 examination and is of indeterminate etiology/significance. A nonemergent follow- up colonoscopy is recommended for reassessment and to evaluate the underlying mucosa. 4. There is an indeterminant partially imaged 2.5 cm opacity at the left lung base. This could represent scarring/atelectasis or possibly an infectious/inflammatory pneumonitis. A follow-up chest CT in 2-3 months time is recommended for reassessment and full evaluation of pneumothorax. 5. There is mild aneurysmal dilatation of the distal descending thoracic aorta which measures up to 3.7 cm in diameter. 6. There is a 4 mm calculus within the bladder lumen. Correlate with clinical findings an urinalysis for evidence of a recently passed kidney stone Allergies Allergy/AdvReac Type Severity Reaction Status Date / Time clindamycin Allergy Unknown CAN'T Verified 07/10/25 08:05 REMEMBER codeine Allergy Unknown CAN'T Verified 07/10/25 08:05 REMEMBER oxycodone Allergy Unknown CAN'T Verified 07/10/25 08:05 REMEMBER Penicillins Allergy Unknown CAN'T Verified 07/10/25 08:05 REMEMBER sulfamethoxazole Allergy Unknown CAN'T Verified 07/10/25 08:05 [From Bactrim] REMEMBER Tetracyclines Allergy Unknown CAN'T Verified 07/10/25 08:05 REMEMBER trimethoprim [From Bactrim] Allergy Unknown CAN'T Verified 07/10/25 08:05 REMEMBER Home Medications Medication Instructions Recorded Confirmed Type cholecalciferol (vitamin D3) 50 2,000 units PO DAILY #30 tabs 07/03/19 07/10/25 History mcg (2,000 unit) tablet folic acid 1 mg tablet 1 mg PO DAILY 03/27/21 07/10/25 History lactobacillus combination no.4 3 3,000 mmu cells PO DAILY #30 caps 10/07/21 07/10/25 Rx billion cell capsule (Probiotic) ibuprofen 200 mg tablet 200 mg PO Q6H PRN pain/fever 12/24/23 07/10/25 History wdikiiav-wzz-nmoepb 5 mg-zeaxanth 1 cap PO DAILY 01/05/24 07/10/25 History 1 mg-bilberry 7.5 mg-herbal capsule (Macular Health Formula) escitalopram oxalate 20 mg tablet 20 mg PO DAILY #90 tabs 07/06/24 07/10/25 Rx levothyroxine 50 mcg tablet 50 mcg PO DAILY #90 tabs 05/01/25 07/10/25 Rx atorvastatin 20 mg tablet 0 mg PO DAILY 06/05/25 07/10/25 History romosozumab-aqqg 210 mg/2.34 0 mg subcut ONCE 06/05/25 07/10/25 History mL(105 mg/1.17 mL x2)subcutaneous syringe (Evenity) tizanidine 4 mg tablet 4 mg PO Q8H PRN muscle spasticity 06/12/25 07/10/25 Rx #30 tabs tramadol 50 mg tablet 50 mg PO Q6H PRN pain #30 tabs 06/14/25 07/10/25 Rx gabapentin 100 mg capsule 100 mg PO DAILY #30 caps 06/18/25 07/10/25 Rx meloxicam 7.5 mg tablet 7.5 - 15 mg (1 - 2 x 7.5 mg) PO 07/01/25 07/10/25 Rx DAILY #30 tabs valsartan 160 mg tablet 160 mg PO DAILY #90 tabs 07/08/25 07/10/25 Rx diltiazem HCl 240 mg capsule,24 0 mg PO DAILY 07/10/25 07/10/25 History hr,extended release Patient History Medical History Compression fracture of T10 vertebra (~1975) T10 compression fracture that she sustained in her 30s per the pain mgmt note dated 06/05/25. Myofascial pain Sacroiliitis Epigastric abdominal pain Concussion with loss of consciousness Contusion of right shoulder Contusion of hand, right Laceration of lip Contusion of face CHI (closed head injury) Post menopausal problems UTI (urinary tract infection) Hx of upper respiratory infection Foul smelling urine Weakness Fatigue Elevated hemoglobin SOB (shortness of breath) on exertion Lightheadedness Colitis Cough History of Clostridium difficile colitis Surgical History H/O cataract removal with insertion of prosthetic lens 04/2022 S/P tonsillectomy S/P partial colectomy S/P tooth extraction S/P knee surgery Family History Mother Diabetes Macular degeneration Grandmother (Maternal) Macular degeneration Family/Other Osteoporosis Other Myocardial infarction Denies family history of Ovarian cancer Prostate cancer Breast cancer Colorectal cancer Social History Smoking Status: Never smoker Second Hand Exposure: No; Do You Dip or Chew Tobacco: No; Tobacco Cessation Education Requested by Patient: No Hx Alcohol Use: Yes Alcohol type: beer and wine Hx Substance Use: Yes Last Used Substance: Days (ago) Last Used Substance Other:: per pt a few days ago used marijuana gummies Preferred Language: Mohawk Communication Ability: Effective Visual Impairment: No Limitations Hearing Ability: Normal Lubricating Machine Tender Required: No Beliefs That Will Affect Care: None marital status: Current Living Situation: Spouse Current Living Situation Comment: lives with Corby current occupational status: retired Other Information That Helps Us Care for You: No Feels Safe at Home: Yes Safety Concerns: Feels Safe At This Time Childhood Exposure to Second-Hand Smoke: No Dental Care, Regularly: Yes Physical Activity Frequency: 3-4 Times per Week Seatbelt Use: always Sunscreen Use: Yes Assistive Devices: None Review of Systems Review of Systems: Unobtainable due to cognitive status Physical Exam Gastrointestinal (Abdomen): soft, nontender, normal bowel sounds. Psychiatric: groggy and slow to answer. Results & Data Vital Signs (Past 12 Hours) Vital Signs Temp Pulse Pulse Resp BP Pulse Ox O2 Del Method 07/11/25 08:05 97.2 F L 58 L 16 134/88 98 Room Air 07/11/25 07:19 53 L 07/11/25 03:38 97.5 F L 62 16 138/80 96 Room Air Coding Level of Care Code 78396 INT INP/OBS CARE 2/55MIN Diagnoses Diverticulitis K57.92
[2025-07-11 11:24] LABS: Cdiff Toxin B Gene (2yr or >) Negative Cdiff Gene (Neg)
[2025-07-11] MEDS ORDERED: CHERRY SYRUP 5 ML UDP PO SCH (12:00)
[2025-07-11] MEDS: POTASSIUM CHLORIDE CRTAB 20 MEQ TABCR PO STA (13:12)
[2025-07-11] MEDS: VANCOMYCIN HCL 125 MG CAP PO SCH (13:13)
--- NOTE | 2025-07-11 14:19 | Hospitalist Progress Note ---
"Date of Service July 11, 2025 Assessment & Plan (1) Sepsis: (2) Diverticulitis: (3) AMS (altered mental status): (4) GRICEL (acute kidney injury): Carly Interiano is a 79F with a PMHx of hypothyroidism, osteopetrosis, HTN, hx of PE (no anticoagulation), depression/anxiety, and SI joint pain who presents from the pain management office with concerns for AMS. Initial evaluation concerning for elevated procal, leukocytosis, and GRICEL with hemoconcentration. CT A/p concerning for acute diverticulitis and possible kidney stone in the bladder. Admit for IV antibiotics, IV hydration, further workup and possible placement. #Sepsis from Diverticulitis | 2cm lesion of sigmoid colon | acute metabolic and toxic encephalopathy - with leukocytosis, positive procal, elevated lactate (3.4) with metabolic acidosis, and tachypnea on admission. Lactate improved s/p IVF. Has a history of bowel surgery due to diverticulitis in her 30s. Also reported hx of Cdiff. Continue Ceftriaxone and Flagyl - loose stools 07/11, but cdiff testing negative. continue vanco at cdiff prophylactic dose. Suspect encephalopathy related to infection, dehydration, pain medications and muscle relaxers- TSH Okay, old stroke on CT - no acute process Consult GI - rec colonoscopy in the next few weeks after diverticulitis is treated Blood cultures: pending Leukocytosis has resolved. Diet advanced to full liquid. patient reporting nausea. Spoke with 07/11 - baseline laisha can be confrontational but normally makes sense. Able to feed and dress herself. Stopped driving a few months ago, simply because her was able to transport her. He is asking when he is able to take her home - we discussed that part of the concerns from this admisson were her AMS and his inability to take care of her at home. He relays that her behaviors at pain management were the worst it has ever been. If her back pain is controlled, then he thinks things will be better at home. I asked him to come in and visit and make sure he still feels that way. We will also await PT and OT evals. #GRICEL | Elevated troponin - Cr 1.59 on admission with baseline 1.1. Recieved IVFs and Cr has normalized. Evidence of hemoconcentration, resolved. Troponin elevation - no EKG changes, no chest pain. Suspected related to poor renal clearance Hold NSAIDs, and valsartan - consider resuming valsartan in AM if Cr stable AM BMP #Possible kidney stone - 4mm stone seen in bladder, ? if passing stone contributing to her recent back pain exacerbation Given flomax and IVFs. strain all urine #Back pain - s/p steroid injection 07/[address] Story Lidocaine patch, prn tylenol hold gabapentin with AMS avoid NSAIDs with GRICEL will try to avoid narcotics,etc with AMS Reported no back pain 07/11 #Lung opacity - 2.5cm nodule in the left lower lung partially imaged on CT A/P. Chest CT report mentions atelectasis in the lingula-perhaps that accounts for the previous finding - Recommend repeat chest CT in 1 month #Complex care needs - reports not being able to take care of Laisha at home. He needs to return to work in July. no local family or friend support. On admission - unclear patient functional or mental baseline PT/OT #HTN - with elevation of BP on admission continue Diltiazem hold valsartan with GRICEL #Marijuana use - positive on UDS, reports one time use last week to try to help with pain - unsuccessful. Also may be contributing to encephalopathy #Hypothyroidism -TSH here normal at 2.6 - Continue home levothyroxine 50 mcg daily #Anxiety disorder - Continue Lexapro 20 mg daily Dispo: continued inpatient stay, stable for downgrade to medical DVT proph: lovenox Code status discussion with 07/11 as patient does not have capacity to make these decisions due to her confusions - she is a DNR/DNI discussed with on admission and via phone 07/11 Admission and Anticipated Discharge Date Admission Date: July 10, 2025 Supervising Physician Co-Signing Physician Notes PA Supervision Note: I did not personally see or examine the patient today, but I verified all daniel points of BRADLEY Jonas's assessment and plan with the following exceptions/additions: None Subjective nikita was seen lying in bed - answers orientation questions appropriately but is ultimately confused, she does not know what she in the hospital. She then starts talking to me about how she got diverticulitis from a pediatric dentist office and she was in a study for diverticulitis and a doctor was brought back from [place] specifically to treat her Medically - she reports feeling nauseous - states she eats and it comes back up as water. she denies any back pain tele SR 50-60s Review of Systems Review of Systems: All systems reviewed & are unremarkable except as noted in Subjective Physical Exam Physical Exam: General: NAD, VS as above Resp: normal respiratory effort, lungs clear to auscultation CV: RRR, no murmur, Abd: normal bowel sounds, soft, mild left LLQ tenderness Extremities: Moves all extremities, no edema Neuro: A&O x2, Skin: intact, no lesions noted Results & Data Results & Data Vital Signs (Past 12 Hours) Vital Signs Temp Pulse Pulse Resp BP Pulse Ox O2 Del Method 07/11/25 11:24 97.2 F L 59 L 18 138/75 97 Room Air 07/11/25 08:05 97.2 F L 58 L 16 134/88 98 Room Air 07/11/25 07:19 53 L 07/11/25 03:38 97.5 F L 62 16 138/80 96 Room Air Laboratory Results cbc chemistry and cdiff testing reviewed Diagnostic Findings Chest CT reviewed PG Care Time/CCT Total # of Minutes Spent Total Time Spent with Patient: Total time spent is greater than 50% in coordination of care (as documented) at patient's floor/unit and/or counseling patient: Coding Level of Care Code 93771 SUB INP/OBS CARE 3/50MIN Diagnoses Sepsis A41.9 Diverticulitis K57.92 AMS (altered mental status) R41.82 GRICEL (acute kidney injury) N17.9"
[2025-07-11] MEDS: ACETAMINOPHEN 500 MG TAB PO PRN (17:50)
[2025-07-11] MEDS: TAMSULOSIN HCL 0.4 MG CAP PO SCH (19:24)
--- NOTE | 2025-07-11 22:08 | Electrocardiogram Report ---
Test Reason : Blood Pressure : */* mmHG Vent. Rate : 84 BPM Atrial Rate : 84 BPM P-R Int : 134 ms QRS Dur : 90 ms QT Int : 398 ms P-R-T Axes : 68 -75 9 degrees QTcB Int : 470 ms Normal sinus rhythm Possible Left atrial enlargement Left anterior fascicular block Minimal voltage criteria for LVH, may be normal variant ( João product ) Nonspecific T wave abnormality Abnormal ECG When compared with ECG of 15-Jun-2025 09:17, Vent. rate has increased by 31 bpm Confirmed by Ash Segura ([id number]) on 07/11/2025 10:08:16 PM Referred By: REFERRED SELF Confirmed By: Ash Segura
--- NOTE | 2025-07-12 10:39 | Gastroenterology Progress Note ---
Date of Service July 12, 2025 Assessment & Plan (1) Diverticulitis: Plan - Continue with treatment of diverticulitis. - Will plan to review images with Radiology. If there is high suggestion of a sigmoid mass patient may benefit from a flexible sigmoidoscopy as inpatient to exclude neoplasm. Otherwise outpatient colonoscopy in 4 to 6 weeks. - Further recommendations to come with Supervising GI provider on medical rounds. Please see co-signature comments. Admission and Anticipated Discharge Date Admission Date: July 10, 2025 Supervising Physician Co-Signing Physician Notes Nausea 50% improved. Being treated as diverticulitis. Unclear etiology after review with radiologist though not clearly a neoplasm. Follow-up CT scan in 4 to 6 weeks colonoscopy in 6 to 8 weeks. [facility] will contact. Patient to be discharged from a GI perspective. Reconsult as needed Subjective Patient tells me that abdominal pain is somewhat improved today, though still present. she also reports some nausea, but is tolerating liquids. no other GI concerns currently. Review of Systems Review of Systems: All systems reviewed & are unremarkable except as noted in HPI & below Physical Exam Constitutional: WD/WN, vitals as above Respiratory: normal respiratory effort, lungs clear to auscultation Cardiovascular: Rate/Rhythm: regular rate and regular rhythm Gastrointestinal (Abdomen): left sided tenderness to palpation, no guarding, soft, normal bowel sounds. Psychiatric: Orientation: alert and oriented x 3 Results & Data Results & Data Vital Signs (Past 12 Hours) Vital Signs Temp Pulse Resp BP BP Pulse Ox O2 Del Method 07/12/25 07:48 97.9 F 68 18 159/90 H 94 Room Air 07/12/25 03:22 98.2 F 71 18 155/92 H 94 Room Air 07/11/25 23:10 97.7 F 61 18 154/87 H 94 Room Air Coding Level of Care Code 02831 SUB INP/OBS CARE 08/18MIN Diagnoses Diverticulitis K57.92
[2025-07-12 10:54] LABS: Hematocrit (blood only) 35.0 % (37.0-47.0); Hemoglobin 12.7 g/dL (12.0-16.0); Mean Corpuscular Hemoglobin 34.1 pg (25.0-34.0); Mean Corpuscular Volume 94.1 fL (80.0-100.0); Platelet Count 168 K/uL (130-400); RDW Standard Deviation 51.5 fL (36.4-46.3); Red Blood Count 3.72 M/uL (4.20-5.40); White Blood Count 7.97 K/ul (4.8-10.8)
[2025-07-12 11:09] LABS: Anion Gap 11.0 (3-11); Blood Urea Nitrogen 23.0 mg/dl (6-23); Carbon Dioxide 18.0 mmol/L (21-32); Chloride 113.0 mmol/L (98-107); Potassium 3.3 mmol/L (3.5-5.1); Sodium 142.0 mmol/L (136-145)
[2025-07-12 11:10] LABS: Calcium 8.4 mg/dl (8.6-10.3); Creatinine Clr Calc Pharmacy 38.4 ml/min; Glucose 141.0 mg/dl (70-99(Fasting))
--- NOTE | 2025-07-12 11:44 | Hospitalist Progress Note ---
"Date of Service July 12, 2025 Assessment & Plan (1) Sepsis: (2) Diverticulitis: (3) AMS (altered mental status): (4) GRICEL (acute kidney injury): Carly Interiano is a 79F with a PMHx of hypothyroidism, osteopetrosis, HTN, hx of PE (no anticoagulation), depression/anxiety, and SI joint pain who presents from the pain management office with concerns for AMS. Initial evaluation concerning for elevated procal, leukocytosis, and GRICEL with hemoconcentration. CT A/p concerning for acute diverticulitis and possible kidney stone in the bladder. Admit for IV antibiotics, IV hydration, further workup and possible placement. #Sepsis from Diverticulitis | 2cm lesion of sigmoid colon | acute metabolic and toxic encephalopathy - with leukocytosis, positive procal, elevated lactate (3.4) with metabolic acidosis, and tachypnea on admission. Lactate improved s/p IVF. Has a history of bowel surgery due to diverticulitis in her 30s. Also reported hx of Cdiff. Continue Ceftriaxone and Flagyl - loose stools 07/11, but cdiff testing negative. continue vanco at cdiff prophylactic dose. Suspect encephalopathy related to infection, dehydration, pain medications and muscle relaxers- TSH Okay, old stroke on CT - no acute process Consult GI - rec colonoscopy in the next few weeks after diverticulitis is treated Blood cultures: NGTD Leukocytosis has resolved. Diet advanced to full liquid, tolerating w/o n/v. Will advance to low residue. Appreciate GI assistance, plan for flex sig to eval possible mass in ~[address] abd/pel in 1 month Spoke with 07/11 - baseline laisha can be confrontational but normally makes sense. Able to feed and dress herself. Stopped driving a few months ago, simply because her was able to transport her. He is asking when he is able to take her home - we discussed that part of the concerns from this admission were her AMS and his inability to take care of her at home. He relays that her behaviors at pain management were the worst it has ever been. If her back pain is controlled, then he thinks things will be better at home. I asked him to come in and visit and make sure he still feels that way. Therapy recommending SNF. CM to discuss with . #GRICEL | Elevated troponin - Cr 1.59 on admission with baseline 1.1. Received IVFs and Cr has normalized. Evidence of hemoconcentration, resolved. Troponin elevation - no EKG changes, no chest pain. Suspected related to poor renal clearance Hold NSAIDs, and valsartan - consider resuming valsartan in AM if Cr stable BMP reveales potassium 3.3, 40meq KCl ordered, repeat BMP for 07/13 #Possible kidney stone - 4mm stone seen in bladder, ? if passing stone contributing to her recent back pain exacerbation Given flomax and IVFs. strain all urine #Back pain - s/p steroid injection 07/[address] Sotry Lidocaine patch, prn tylenol hold gabapentin with AMS avoid NSAIDs with GRICEL will try to avoid narcotics,etc with AMS Reported no back pain 07/11 #Lung opacity - 2.5cm nodule in the left lower lung partially imaged on CT A/P. Chest CT report mentions atelectasis in the lingula-perhaps that accounts for the previous finding - Recommend repeat chest CT in 1 month #Complex care needs - reports not being able to take care of Laisha at home. He needs to return to work in July. no local family or friend support. On admission - unclear patient functional or mental baseline PT/OT recommending SNF, communicated with CM, will d/w . No facilities able to accept until next week #HTN - with elevation of BP on admission continue Diltiazem Resume valsartan with normalized renal fxn #Marijuana use - positive on UDS, reports one time use last week to try to help with pain - unsuccessful. Also may be contributing to encephalopathy #Hypothyroidism -TSH here normal at 2.6 - Continue home levothyroxine 50 mcg daily #Anxiety disorder - Continue Lexapro 20 mg daily Dispo: continued inpatient stay, stable for downgrade to medical DVT proph: lovenox Code status discussion with 07/11 as patient does not have capacity to make these decisions due to her confusions - she is a DNR/DNI discussed with on admission and via phone 07/11 Admission and Anticipated Discharge Date Admission Date: July 10, 2025 Supervising Physician Co-Signing Physician Notes PA Supervision Note: I did not personally see or examine the patient today, but I verified all daniel points of BRADLEY Clifton's assessment and plan with the following exceptions/additions: None Subjective Nikia was seen on rounds this morning. Offers no complaints/concerns. She denies cp, dyspnea, abd pain, n/v/d, f/c. She is eating/drinking. No other complaints/concerns reported by nursing staff. Review of Systems 2 Review of Systems: All systems reviewed and are unremarkable except as noted in HPI and below. Denies fever, chills, fatigue, headache, nasal congestion, sore throat, cough, chest pain, shortness of breath, palpitations, orthopnea, PND, abdominal pain, n/v/d, constipation, dysuria, hematuria, frequency, back pain, joint pain or swelling, easy bruising or bleeding, skin lesions or rashes. Physical Exam 2 Physical Exam: GENERAL: 79 yo well-nourished elderly WF. A&Ox3. Pleasant, cooperative. No distress. LUNGS: Clear to auscultation bilaterally. No W/R/R. CARDIOVASCULAR: Regular rate and rhythm. ABDOMEN: Soft, non-tender and non-distended. BS normoactive x 4 quad. EXTREMITIES: No edema. Non-tender. Peripheral pulses +2/4. SKIN: Warm, dry, intact. No rashes or lesions. Results & Data Results & Data Vital Signs (Past 12 Hours) Vital Signs Temp Pulse Resp BP BP Pulse Ox O2 Del Method 07/12/25 07:48 36.6 C 68 18 159/90 H 94 Room Air 07/12/25 03:22 36.8 C 71 18 155/92 H 94 Room Air Laboratory Results 07/12/25 10:09 07/12/25 10:09 PG Care Time/CCT Total # of Minutes Spent Total Time Spent with Patient: Total time spent is greater than 50% in coordination of care (as documented) at patient's floor/unit and/or counseling patient: 38 minutes Coding Level of Care Code 84924 SUB INP/OBS CARE 2/35MIN Diagnoses Sepsis A41.9 Diverticulitis K57.92 AMS (altered mental status) R41.82 GRICEL (acute kidney injury) N17.9"
[2025-07-12] MEDS: VALSARTAN 80 MG TAB PO SCH (12:59)
[2025-07-12] MEDS: POTASSIUM CHLORIDE CRTAB 20 MEQ TABCR PO STA (12:59)
[2025-07-12] MEDS: SODIUM CHLORIDE 0.9% 1,000 ML IV SCH (17:31)
[2025-07-13 06:15] LABS: Hematocrit (blood only) 38.0 % (37.0-47.0); Hemoglobin 13.8 g/dL (12.0-16.0); Immature Granulocytes # (auto) 0.11 K/uL (0.01-0.20); Immature Granulocytes % (auto) 1.4 %; Mean Corpuscular Hemoglobin 34.1 pg (25.0-34.0); Mean Corpuscular Volume 93.8 fL (80.0-100.0); Platelet Count 147 K/uL (130-400); RDW Standard Deviation 51.1 fL (36.4-46.3); Red Blood Count 4.05 M/uL (4.20-5.40); White Blood Count 7.73 K/ul (4.8-10.8)
[2025-07-13 06:37] LABS: Anion Gap 9.0 (3-11); Blood Urea Nitrogen 16.0 mg/dl (6-23); Calcium 8.3 mg/dl (8.6-10.3); Carbon Dioxide 19.0 mmol/L (21-32); Chloride 113.0 mmol/L (98-107); Creatinine Clr Calc Pharmacy 42.0 ml/min; Glucose 124.0 mg/dl (70-99(Fasting)); Magnesium 1.9 mg/dl (1.7-2.4); Potassium 3.4 mmol/L (3.5-5.1); Sodium 141.0 mmol/L (136-145)
[2025-07-13] MEDS: POTASSIUM CHLORIDE CRTAB 20 MEQ TABCR PO STA (09:06)
--- NOTE | 2025-07-13 10:46 | Hospitalist Progress Note ---
"Date of Service July 13, 2025 Assessment & Plan (1) Sepsis: (2) Diverticulitis: (3) AMS (altered mental status): (4) GRICEL (acute kidney injury): Plan Laisha is a 79F with a PMHx of hypothyroidism, osteopetrosis, HTN, hx of PE (no anticoagulation), depression/anxiety, and SI joint pain who presents from the pain management office with concerns for AMS. Initial evaluation concerning for elevated procal, leukocytosis, and GRICEL with hemoconcentration. CT A/p concerning for acute diverticulitis and possible kidney stone in the bladder. Admit for IV antibiotics, IV hydration, further workup and possible placement. #Sepsis from Diverticulitis | 2cm lesion of sigmoid colon | acute metabolic and toxic encephalopathy - with leukocytosis, positive procal, elevated lactate (3.4) with metabolic acidosis, and tachypnea on admission. Lactate improved s/p IVF. Has a history of bowel surgery due to diverticulitis in her 30s. Also reported hx of Cdiff. Continue Ceftriaxone and Flagyl - loose stools 07/11, but cdiff testing negative. continue vanco at cdiff prophylactic dose. Suspect encephalopathy related to infection, dehydration, pain medications and muscle relaxers- TSH Okay, old stroke on CT - no acute process Consult GI appreciated Blood cultures: NGTD NPO on admission, once leukocytosis has resolved, diet advanced to low fiber Spoke with 07/11 - baseline laisha can be confrontational but normally makes sense. Able to feed and dress herself. Stopped driving a few months ago, simply because her was able to transport her. He is asking when he is able to take her home - we discussed that part of the concerns from this admission were her AMS and his inability to take care of her at home. He relays that her behaviors at pain management were the worst it has ever been. If her back pain is controlled, then he thinks things will be better at home. I asked him to come in and visit and make sure he still feels that way. Therapy recommending SNF, is agreeable but no beds at present. Patient still with NAGMA-low serum bicarb likely due to ongoing diarrheal losses, still appears clinically dry-resume LR at 80 ml/hr due to decreased oral intake Diet has been advanced to low residue on 07/12, still with nausea, add Compazine 5mg IV q6 prn Added Sodium bicarb 650mg daily Imodium 2mg q6 prn diarrhea added GI recommending repeat CTAP in 1 month followed by endoscopy in 6-8 weeks #GRICEL | Elevated troponin - Cr 1.59 on admission with baseline 1.1. Received IVFs and Cr has normalized. Evidence of hemoconcentration, resolved. Troponin elevation - no EKG changes, no chest pain. Suspected related to poor renal clearance Held NSAIDs, and valsartan initially and now valsartan restarted #Possible kidney stone - 4mm stone seen in bladder, ? if passing stone contributing to her recent back pain exacerbation Given flomax and IVFs. strain all urine #Back pain - s/p steroid injection 07/[address] Story Lidocaine patch, prn tylenol hold gabapentin with AMS avoid NSAIDs with GRICEL will try to avoid narcotics,etc with AMS Has not reported back pain since 07/11 #Lung opacity - 2.5cm nodule in the left lower lung partially imaged on CT A/P. Chest CT report mentions atelectasis in the lingula-perhaps that accounts for the previous finding - Recommend repeat chest CT in 1 month #Complex care needs - reports not being able to take care of Laisha at home. He needs to return to work in July. no local family or friend support. On admission - unclear patient functional or mental baseline PT/OT recommending SNF, communicated with CM, will d/w . No facilities able to accept until next week #HTN - with elevation of BP on admission continue Diltiazem Resumed valsartan 07/12 with normalized renal fxn Continues to be still hypertensive, will increase Valsartan to 320mg daily- follow BP #Marijuana use - positive on UDS, reports one time use last week to try to help with pain - unsuccessful. Also may be contributing to encephalopathy #Hypothyroidism -TSH here normal at 2.6 - Continue home levothyroxine 50 mcg daily #Anxiety disorder - Continue Lexapro 20 mg daily Dispo: continued inpatient stay, stable for downgrade to medical DVT proph: lovenox Code status discussion with 07/11 as patient does not have capacity to make these decisions due to her confusions - she is a DNR/DNI provided update to at bedside on 07/12 Admission and Anticipated Discharge Date Admission Date: July 10, 2025 Supervising Physician Co-Signing Physician Notes PA Supervision Note: I did not personally see or examine the patient today, but I verified all daniel points of BRADLEY Clifton's assessment and plan with the following exceptions/additions: None Subjective Nikia was seen on rounds this morning. She is accompanied by her . She is c/o nausea but no vomiting or abdominal pain. She continues to have diarrhea. She denies cp or dyspnea. No fever or chills. Review of Systems 2 Review of Systems: All systems reviewed and are unremarkable except as noted in HPI and below. Denies fever, chills, fatigue, headache, nasal congestion, sore throat, cough, chest pain, shortness of breath, palpitations, orthopnea, PND, abdominal pain, vomiting, constipation, dysuria, hematuria, frequency, joint pain or swelling, easy bruising or bleeding, skin lesions or rashes. Physical Exam 2 Physical Exam: GENERAL: 79 yo well-nourished elderly WF. A&Ox3. Pleasant, cooperative. No distress. MOUTH: Mucous membranes dry LUNGS: Clear to auscultation bilaterally. No W/R/R. CARDIOVASCULAR: Regular rate and rhythm. ABDOMEN: Soft, non-tender and non-distended. BS normoactive x 4 quad. EXTREMITIES: No edema. Non-tender. Peripheral pulses +2/4. SKIN: Warm, dry, intact. No rashes or lesions. Results & Data Results & Data Vital Signs (Past 12 Hours) Vital Signs Pulse Resp BP Pulse Ox O2 Del Method 07/13/25 10:32 162/94 H 07/13/25 10:31 162/94 H 07/13/25 08:25 64 20 185/101 H 100 Room Air Laboratory Results 07/13/25 05:58 07/13/25 05:58 PG Care Time/CCT Total # of Minutes Spent Total Time Spent with Patient: Total time spent is greater than 50% in coordination of care (as documented) at patient's floor/unit and/or counseling patient: 36 minutes Coding Level of Care Code 62049 SUB INP/OBS CARE 2/35MIN Diagnoses Sepsis A41.9 Diverticulitis K57.92 AMS (altered mental status) R41.82 GRICEL (acute kidney injury) N17.9"
[2025-07-13] MEDS: LACTATED RINGER'S 1,000 ML IV SCH (11:22)
[2025-07-13] MEDS: SODIUM BICARBONATE 650 MG TAB PO ONE (14:13)
[2025-07-13] MEDS: LOPERAMIDE HCL 2 MG CAP PO PRN (14:13)
[2025-07-13] MEDS: PANTOprazole 40 MG/10 ML SYR IV ONE (23:22)
[2025-07-14] MEDS: VALSARTAN 80 MG TAB PO SCH (07:54)
[2025-07-14] MEDS: SODIUM BICARBONATE 650 MG TAB PO SCH (07:55)
[2025-07-14 08:27] LABS: Hematocrit (blood only) 36.1 % (37.0-47.0); Hemoglobin 12.6 g/dL (12.0-16.0); Immature Granulocytes # (auto) 0.11 K/uL (0.01-0.20); Immature Granulocytes % (auto) 1.2 %; Mean Corpuscular Hemoglobin 33.3 pg (25.0-34.0); Mean Corpuscular Volume 95.5 fL (80.0-100.0); Platelet Count 144 K/uL (130-400); RDW Standard Deviation 50.3 fL (36.4-46.3); Red Blood Count 3.78 M/uL (4.20-5.40); White Blood Count 9.50 K/ul (4.8-10.8)
[2025-07-14 08:41] LABS: Anion Gap 8.0 (3-11); Blood Urea Nitrogen 12.0 mg/dl (6-23); Calcium 7.9 mg/dl (8.6-10.3); Carbon Dioxide 23.0 mmol/L (21-32); Chloride 106.0 mmol/L (98-107); Creatinine Clr Calc Pharmacy 48.8 ml/min; Glucose 119.0 mg/dl (70-99(Fasting)); Potassium 3.2 mmol/L (3.5-5.1); Sodium 137.0 mmol/L (136-145)
--- NOTE | 2025-07-14 09:44 | Electrocardiogram Report ---
Test Reason : Blood Pressure : */* mmHG Vent. Rate : 71 BPM Atrial Rate : 71 BPM P-R Int : 116 ms QRS Dur : 86 ms QT Int : 456 ms P-R-T Axes : 57 -60 -13 degrees QTcB Int : 495 ms Normal sinus rhythm Left anterior fascicular block Nonspecific T wave abnormality Abnormal ECG When compared with ECG of 10-Jul-2025 09:44, Nonspecific T wave abnormality, worse in Anterior leads Confirmed by Noe Erwin ([id number]) on 07/14/2025 9:44:36 AM Referred By: REFERRED SELF Confirmed By: Noe Erwin
[2025-07-14 10:18] LABS: Magnesium 1.6 mg/dl (1.7-2.4)
[2025-07-14] MEDS: PROCHLORPERAZINE 5 MG in SYRINGE 4 ML IV PRN (10:44)
--- NOTE | 2025-07-14 11:07 | Hospitalist Progress Note ---
Date of Service July 14, 2025 Assessment & Plan (1) Nausea & vomiting: (2) Diverticulitis: (3) Hypokalemia: (4) Acute metabolic encephalopathy: Plan This patient is a 79F with a PMHx of hypothyroidism, osteoporosis, HTN, hx of PE (no anticoagulation), depression/anxiety, and SI joint pain who presents from the pain management office with concerns for AMS. She has had very poor p.o. intake for the last 5 to 6 weeks since dealing with severe lower back pain. Initial evaluation concerning for elevated procal, leukocytosis, and GRICEL with hemoconcentration. CT A/p concerning for acute diverticulitis and possible kidney stone in the bladder. She is admitted for IV antibiotics, IV hydration, treatment of nausea and gastritis, with need for rehab placement. #Sepsis/acute sigmoid diverticulitis/2cm lesion of sigmoid colon/suspected gastritis- with leukocytosis, positive procal, elevated lactate (3.4) with metabolic acidosis, and tachypnea on admission. Lactate improved s/p IVF. Has a history of bowel surgery due to diverticulitis in her 30s. Also reported hx of Cdiff but testing here is negative. Seen by GI who recommends follow-up in [address] A/P and colonoscopy. LLQ abdominal pain improving, sepsis resolved, blood cultures remain no growth. None anion gap metabolic acidosis secondary to bicarbonate GI losses now improving. With ongoing significant nausea/vomiting and previous heavy NSAID use-suspect gastritis as it is improving with Protonix. -Continue Ceftriaxone and Flagyl for diverticulitis - Continue vanco at cdiff prophylactic dose while on antibiotics -Continue to follow blood cultures: NGTD -On low fiber diet but tolerating little p.o. intake except for fruit and some liquids -Continue LR at 80 mL/h until p.o. intake improves - Start Protonix 40 mg IV twice daily - Discontinued all NSAIDs - Serum bicarbonate improved-discontinue sodium bicarbonate tablet - Increase Compazine to 10 mg IV every 6 as needed, continue Zofran 4 mg IV every 6 hours as needed nausea -Continue Imodium 2mg q6 prn diarrhea -GI recommending repeat CTAP in 1 month followed by endoscopy in 6-8 weeks #Acute metabolic and toxic encephalopathy-Suspect encephalopathy related to infection, significant dehydration, pain medications and muscle relaxers- TSH Okay, old stroke on CT - no acute process. Patient's reports that at baseline, Laisha can be confrontational but normally makes sense. Able to feed and dress herself. Stopped driving a few months ago, simply because her was able to transport her. She has been more confused in the last week and he was unable to manage her at home. If her back pain is controlled, then he thinks things will be better at home. #GRICEL/hypokalemia/hypomagnesemia/elevated troponin - Cr 1.59 on admission with baseline 1.1. Received IVFs and Cr has normalized. Evidence of hemoconcentration, resolved. Troponin elevation - no EKG changes, no chest pain. Suspected related to poor renal clearance. Remains with hypokalemia and hypomagnesemia due to poor p.o. intake and previous diarrhea -Held NSAIDs, and valsartan initially for GRICEL and now valsartan restarted -Continue IV fluids for poor p.o. intake - Replace with 2 g IV magnesium and 30 mEq IV KCl as she is unable to tolerate p.o. replacement -Follow BMP and magnesium level in the a.m. #Possible kidney stone - 4mm stone seen in bladder, ? if passing stone contributing to her recent back pain exacerbation but doubtful -Continue flomax and IVFs. -Strain all urine #Back pain - s/p steroid injection 07/[address] Story and back pain is much improved. Controlled with Tylenol alone -Continue lidocaine patch, prn tylenol -Continue home gabapentin, tramadol, tizanidine as cause toxic encephalopathy -Discontinued ibuprofen due to GRICEL #Lung opacity - 2.5cm nodule in the left lower lung partially imaged on CT A/P. Chest CT report mentions atelectasis in the lingula-perhaps that accounts for the previous finding - Recommend repeat chest CT in 1 month #HTN - with elevation of BP ongoing but not severe -Continue Diltiazem, valsartan dose increased to 320 mg daily -Follow BPs #Marijuana use - positive on UDS, reports one time use last week to try to help with pain - unsuccessful. Also may be contributing to encephalopathy- discontinue use #Hypothyroidism -TSH here normal at 2.6 - Continue home levothyroxine 50 mcg daily #Anxiety disorder - Continue Lexapro 20 mg daily Dispo: continued inpatient stay on medical/surgical unit, not stable for discharge to rehab yet as she is having severe nausea and unable to tolerate p.o. DVT proph: lovenox Admission and Anticipated Discharge Date Admission Date: July 10, 2025 Subjective Patient continues to complain of severe nausea. Can barely eat anything and does not want to take any pills. Diarrhea has stopped since receiving Imodium yesterday. Reports some mild left lower quadrant pain but overall that is improved. Tylenol is helping her chronic back pain. Physical Exam Constitutional: WD/WN, vitals as above Respiratory: normal respiratory effort, lungs clear to auscultation Cardiovascular: RRR, no murmur, no edema Gastrointestinal (Abdomen): normal bowel sounds, soft, nontender, no hepatosplenomegaly Psychiatric: A+Ox3, euthymic affect Results & Data Results & Data Vital Signs (Past 12 Hours) Vital Signs Temp Pulse Resp BP Pulse Ox O2 Del Method 07/14/25 08:31 36.6 C 73 18 152/93 H 97 Room Air Laboratory Results CBC, BMP, magnesium, blood cultures reviewed PG Care Time/CCT Total # of Minutes Spent Total Time Spent with Patient: Total time spent is greater than 50% in coordination of care (as documented) at patient's floor/unit and/or counseling patient: Coding Level of Care Code 66804 SUB INP/OBS CARE 2/35MIN Diagnoses Nausea & vomiting R11.2 Diverticulitis K57.92 Hypokalemia E87.6 Acute metabolic encephalopathy G93.41
[2025-07-14] MEDS: POTASSIUM CHLORIDE CRTAB 20 MEQ TABCR PO STA (11:12)
[2025-07-14] MEDS: PANTOprazole 40 MG/10 ML SYR IV SCH (11:30)
[2025-07-14] MEDS: POTASSIUM CHLORIDE / WTR 10 MEQ/100 ML PLCT IV SCH (11:31)
[2025-07-14] MEDS: MAGNESIUM SULFATE / D5W 1 GM/100 ML BAG IV SCH (11:55)
[2025-07-14] MEDS ORDERED: POTASSIUM CHLORIDE CRTAB 20 MEQ TABCR PO SCH (21:00)
[2025-07-14] MEDS: PROCHLORPERAZINE 10 MG in SYRINGE 8 ML IV PRN (23:28)
[2025-07-15 04:27] LABS: Hematocrit (blood only) 36.5 % (37.0-47.0); Hemoglobin 12.9 g/dL (12.0-16.0); Immature Granulocytes # (auto) 0.11 K/uL (0.01-0.20); Immature Granulocytes % (auto) 1.4 %; Mean Corpuscular Hemoglobin 33.2 pg (25.0-34.0); Mean Corpuscular Volume 94.1 fL (80.0-100.0); Platelet Count 131 K/uL (130-400); RDW Standard Deviation 48.6 fL (36.4-46.3); Red Blood Count 3.88 M/uL (4.20-5.40); White Blood Count 8.09 K/ul (4.8-10.8)
[2025-07-15 04:45] LABS: Anion Gap 8.0 (3-11); Blood Urea Nitrogen 11.0 mg/dl (6-23); Calcium 7.8 mg/dl (8.6-10.3); Carbon Dioxide 24.0 mmol/L (21-32); Chloride 102.0 mmol/L (98-107); Creatinine Clr Calc Pharmacy 50.1 ml/min; Glucose 103.0 mg/dl (70-99(Fasting)); Magnesium 1.9 mg/dl (1.7-2.4); Potassium 3.4 mmol/L (3.5-5.1); Sodium 134.0 mmol/L (136-145)
--- NOTE | 2025-07-15 13:10 | Hospitalist Progress Note ---
Date of Service July 15, 2025 Assessment & Plan (1) Nausea & vomiting: (2) Diverticulitis: (3) Hypokalemia: (4) Acute metabolic encephalopathy: Plan This patient is a 79F with a PMHx of hypothyroidism, osteoporosis, HTN, hx of PE (no anticoagulation), depression/anxiety, and SI joint pain who presents from the pain management office with concerns for AMS. She has had very poor p.o. intake for the last 5 to 6 weeks since dealing with severe lower back pain. Initial evaluation concerning for elevated procal, leukocytosis, and GRICEL with hemoconcentration. CT A/p concerning for acute diverticulitis and possible kidney stone in the bladder. She is admitted for IV antibiotics, IV hydration, treatment of nausea and gastritis, with need for rehab placement. #Sepsis/acute sigmoid diverticulitis/2cm lesion of sigmoid colon/suspected gastritis- with leukocytosis, positive procal, elevated lactate (3.4) with metabolic acidosis, and tachypnea on admission. Lactate improved s/p IVF. Has a history of bowel surgery due to diverticulitis in her 30s. Also reported hx of Cdiff but testing here is negative. Seen by GI who recommends follow-up in 6 to [address] A/P and colonoscopy. LLQ abdominal pain improving, sepsis resolved, blood cultures remain no growth. None anion gap metabolic acidosis secondary to bicarbonate GI losses now improving. With ongoing significant nausea/vomiting and previous heavy NSAID use-suspect gastritis as it is improving with Protonix. -Clically stable to slow improvement, still very limited appetite. -Continue Ceftriaxone and Flagyl for diverticulitis - Continue vanco at cdiff prophylactic dose while on antibiotics -Continue to follow blood cultures: [id number] -On low fiber diet but tolerating little p.o. intake except for fruit and some liquids - Start Protonix 40 mg IV twice daily - Discontinued all NSAIDs - Serum bicarbonate improved-discontinue sodium bicarbonate tablet - Increase Compazine to 10 mg IV every 6 as needed, continue Zofran 4 mg IV every 6 hours as needed nausea -Continue Imodium 2mg q6 prn diarrhea -GI recommending repeat CTAP in 1 month followed by endoscopy in 6-8 weeks #Dehydration - Poor p.o. intake secondary to diverticulitis as above - has been on LR at maintenance, will add 500 cc LR bolus over the short-term, continue LR until oral intake improves #Acute metabolic and toxic encephalopathy-Suspect encephalopathy related to infection, significant dehydration, pain medications and muscle relaxers- TSH Okay, old stroke on CT - no acute process. Patient's reports that at baseline, Laisha can be confrontational but normally makes sense. Able to feed and dress herself. Stopped driving a few months ago, simply because her was able to transport her. She has been more confused in the last week and he was unable to manage her at home. If her back pain is controlled, then he thinks things will be better at home. -She is calm and appropriately interactive this morning. States that her back pain is present but not bothersome during my visit. - Will continue to monitor. Multifactorial encephalopathy as noted above #GRICEL/hypokalemia/hypomagnesemia/elevated troponin - Cr 1.59 on admission with baseline 1.1. Received IVFs and Cr has normalized. Evidence of hemoconcentration, resolved. Troponin elevation - no EKG changes, no chest pain. Suspected related to poor renal clearance. Remains with hypokalemia and hypomagnesemia due to poor p.o. intake and previous diarrhea -No indication for further cardiac testing -Held NSAIDs, and valsartan initially for GRICEL and now valsartan restarted -Continue IV fluids for poor p.o. intake - Replace with 2 g IV magnesium and 30 mEq IV KCl as she is unable to tolerate p.o. replacement -Follow BMP and magnesium level in the a.m. #Possible kidney stone - 4mm stone seen in bladder, ? if passing stone contributing to her recent back pain exacerbation but doubtful -Continue flomax and IVFs. -Strain all urine, no additional findings #Back pain - s/p steroid injection 07/[address] Story and back pain is much improved. Controlled with Tylenol alone -Continue lidocaine patch, prn tylenol -Continue home gabapentin, tramadol, tizanidine as cause toxic encephalopathy -Discontinued ibuprofen due to GRICEL #Lung opacity - 2.5cm nodule in the left lower lung partially imaged on CT A/P. Chest CT report mentions atelectasis in the lingula-perhaps that accounts for the previous finding - Recommend repeat chest CT in 1 month #HTN - with elevation of BP ongoing but not severe -Continue Diltiazem, valsartan dose increased to 320 mg daily -Follow BPs #Marijuana use - positive on UDS, reports one time use last week to try to help with pain - unsuccessful. Also may be contributing to encephalopathy- discontinue use #Hypothyroidism -TSH here normal at 2.6 - Continue home levothyroxine 50 mcg daily #Anxiety disorder - Continue Lexapro 20 mg daily Dispo: continued inpatient stay on medical/surgical unit, not stable for discharge to rehab yet as she is having severe nausea and unable to tolerate p.o. DVT proph: lovenox Admission and Anticipated Discharge Date Admission Date: July 10, 2025 Subjective Doing okay this morning. Somewhat down in regards to being in the hospital. Still notes she is having a lot of GI losses but thinks that is improved. Feels quite thirsty. Has very little to no appetite as of yet. No other new or different symptoms. No fevers chills or generalized signs of illness. Nausea and vomiting seem to be controlled with antiemetics. No new events or concerns per nursing staff. Physical Exam Constitutional: WD/WN, vitals as above Respiratory: normal respiratory effort, lungs clear to auscultation Cardiovascular: RRR, no murmur, no edema Gastrointestinal (Abdomen): normal bowel sounds, soft, nontender, no hepatosplenomegaly Psychiatric: A+Ox3, euthymic affect Results & Data Results & Data Vital Signs (Past 12 Hours) Vital Signs Temp Pulse Resp BP BP Pulse Ox O2 Del Method 07/15/25 12:38 35.6 C L 79 12 173/118 H 95 Room Air 07/15/25 08:00 36.5 C 68 16 184/100 H 91 Room Air Laboratory Results 07/15/25 03:33 WBC 8.09 RBC 3.88 L Hgb 12.9 Hct 36.5 L MCV 94.1 MCH 33.2 MCHC 35.3 RDW Std Deviation 48.6 H RDW Coeff of Ciarra 14.0 Plt Count 131 MPV 12.2 Immature Gran % (Auto) 1.4 Neut % (Auto) 77.5 Lymph % (Auto) 9.6 Dickson % (Auto) 11.0 Eos % (Auto) 0.4 Baso % (Auto) 0.1 Neut # (Auto) 6.27 Lymph # (Auto) 0.78 L Dickson # (Auto) 0.89 H Eos # (Auto) 0.03 Baso # (Auto) 0.01 Immature Gran # (Auto) 0.11 Sodium 134 L Potassium 3.4 L Chloride 102 Carbon Dioxide 24 Anion Gap 8 BUN 11 Creatinine 0.72 Est Cr Clr Drug Dosing 50.1 eGFR 85.00 BUN/Creatinine Ratio 15.3 Glucose 103 H Calcium 7.8 L Magnesium 1.9 PG Care Time/CCT Total # of Minutes Spent Total Time Spent with Patient: Total time spent is greater than 50% in coordination of care (as documented) at patient's floor/unit and/or counseling patient: Coding Level of Care Code 31202 SUB INP/OBS CARE 2/35MIN Diagnoses Nausea & vomiting R11.2 Diverticulitis K57.92 Hypokalemia E87.6 Acute metabolic encephalopathy G93.41
[2025-07-15] MEDS: LACTATED RINGER'S 500 ML IV ONE (14:32)
[2025-07-15 15:48] VITALS: RESP 16
[2025-07-15] MEDS: MELATONIN 3 MG TAB PO PRN (22:26)
[2025-07-16 08:30] VITALS: PULSE 84; TEMP 98.1; O2SAT 97
[2025-07-16] MEDS: METOPROLOL TARTRATE 25 MG TAB PO SCH (09:11)
[2025-07-16 09:59] LABS: Hematocrit (blood only) 36.4 % (37.0-47.0); Hemoglobin 13.2 g/dL (12.0-16.0); Immature Granulocytes # (auto) 0.12 K/uL (0.01-0.20); Immature Granulocytes % (auto) 1.6 %; Mean Corpuscular Hemoglobin 33.5 pg (25.0-34.0); Mean Corpuscular Volume 92.4 fL (80.0-100.0); Platelet Count 122 K/uL (130-400); RDW Standard Deviation 47.3 fL (36.4-46.3); Red Blood Count 3.94 M/uL (4.20-5.40); White Blood Count 7.48 K/ul (4.8-10.8)
[2025-07-16 10:11] LABS: Alanine Aminotransferase 20 U/L (7-52); Albumin Globulin Ratio 1.2 (0.9-2); Albumin Level 3.2 gm/dl (3.4-5.0); Alkaline Phosphatase 57 U/L (34-104); Anion Gap 11 (3-11); Bilirubin,Total 0.6 mg/dl (0.2-1.0); Blood Urea Nitrogen 10 mg/dl (6-23); Calcium 7.9 mg/dl (8.6-10.3); Carbon Dioxide 25 mmol/L (21-32); Chloride 99 mmol/L (98-107); Creatinine Clr Calc Pharmacy 53.1 ml/min; Globulin 2.6 gm/dl (2.5-4.0); Glucose 107 mg/dl (70-99(Fasting)); Magnesium 1.5 mg/dl (1.7-2.4); Potassium 2.9 mmol/L (3.5-5.1); Sodium 135 mmol/L (136-145); Total Protein 5.8 gm/dl (6.0-8.3)
[2025-07-16 12:03] VITALS: BP 144/73
[2025-07-16] MEDS: LACTATED RINGER'S 500 ML IV ONE (12:04)
[2025-07-16] MEDS: LACTATED RINGER'S 1,000 ML IV SCH (13:17)
--- NOTE | 2025-07-16 13:45 | Discharge Summary ---
Discharge Summary Date of Service July 16, 2025 Principal Dx & Hospital Course #1 = Principal Diagnosis (1) Nausea & vomiting: (2) Diverticulitis: (3) Hypokalemia: (4) Acute metabolic encephalopathy: Plan This patient is a 79F with a PMHx of hypothyroidism, osteoporosis, HTN, hx of PE (no anticoagulation), depression/anxiety, and SI joint pain who presents from the pain management office with concerns for AMS. She has had very poor p.o. intake for the last 5 to 6 weeks since dealing with severe lower back pain. Initial evaluation concerning for elevated procal, leukocytosis, and GRICEL with hemoconcentration. CT A/p concerning for acute diverticulitis and possible kidney stone in the bladder. She is admitted for IV antibiotics, IV hydration, treatment of nausea and gastritis, with need for rehab placement. #Sepsis/acute sigmoid diverticulitis/2cm lesion of sigmoid colon/suspected gastritis- with leukocytosis, positive procal, elevated lactate (3.4) with metabolic acidosis, and tachypnea on admission. Lactate improved s/p IVF. Has a history of bowel surgery due to diverticulitis in her 30s. Also reported hx of Cdiff but testing here is negative. Seen by GI who recommends follow-up in [address] A/P and colonoscopy. LLQ abdominal pain improving, sepsis resolved, blood cultures remain no growth. None anion gap metabolic acidosis secondary to bicarbonate GI losses now improving. With ongoing significant nausea/vomiting and previous heavy NSAID use-suspect gastritis as it is improving with Protonix. -Clically stable to slow improvement, still very limited appetite. -Continue Ceftriaxone and Flagyl for diverticulitis - Continue vanco at cdiff prophylactic dose while on antibiotics -Continue to follow blood cultures: [id number] -On low fiber diet but tolerating little p.o. intake except for fruit and some liquids - Start Protonix 40 mg IV twice daily - Discontinued all NSAIDs - Still required Compazine and Imodium for occasional loose stools over that is improving. She was initially quite sick with sepsis, altered mental status. Responded well to volume expansion and antibiotics. She will need to be on Rocephin and Flagyl until 07/21. Going to inpatient rehab so in the intravenous therapy continued. On discharge she will need to follow-up with repeat CT and colonoscopy #Dehydration - Poor p.o. intake secondary to diverticulitis as above - has been on LR at maintenance, will add another 500 cc LR bolus today and increase her maintenance rate to 100 cc/h. This will need to continue until p.o. intake improves #Hypokalemia Today's labs returned at 2.9. She will need-an increase in oral replacement and likely IV replacement of the short-term, daily checks for short-term #Hypomagnesemia -Recurrent losses. Initiate oral supplement. Daily checks for the short-term while she is on IV fluids #Acute metabolic and toxic encephalopathy-Suspect encephalopathy related to infection, significant dehydration, pain medications and muscle relaxers- TSH Okay, old stroke on CT - no acute process. Patient's reports that at baseline, Laisha can be confrontational but normally makes sense. Able to feed and dress herself. Stopped driving a few months ago, simply because her was able to transport her. She has been more confused in the last week and he was unable to manage her at home. If her back pain is controlled, then he thinks things will be better at home. -She is calm and appropriately interactive this morning. States that her back pain is present but not bothersome during my visit. - Will continue to monitor. She continues to make steady improvement #GRICEL/elevated troponin - Cr 1.59 on admission with baseline 1.1. Received IVFs and Cr has normalized. Evidence of hemoconcentration, resolved. Troponin elevation - no EKG changes, no chest pain. Suspected related to poor renal comfort rosalind. Remains with hypokalemia and hypomagnesemia due to poor p.o. intake and previous diarrhea -No indication for further cardiac testing -Held NSAIDs, and valsartan initially for GRICEL and now valsartan restarted -Follow BMP and magnesium level in the a.m. #Possible kidney stone - 4mm stone seen in bladder, ? if passing stone contributing to her recent back pain exacerbation but doubtful -Continue flomax and IVFs. -Strain all urine, no additional findings #Back pain - s/p steroid injection 07/[address] Story and back pain is much improved. Controlled with Tylenol alone -Continue lidocaine patch, prn tylenol -Continue home gabapentin, tramadol, tizanidine as cause toxic encephalopathy -Discontinued ibuprofen due to GRICEL #Lung opacity - 2.5cm nodule in the left lower lung partially imaged on CT A/P. Chest CT report mentions atelectasis in the lingula-perhaps that accounts for the previous finding - Recommend repeat chest CT in 1 month #HTN - with elevation of BP ongoing but not severe -Continue Diltiazem, valsartan dose increased to 320 mg daily -Follow BPs #Marijuana use - positive on UDS, reports one time use last week to try to help with pain - unsuccessful. Also may be contributing to encephalopathy- discontinue use #Hypothyroidism -TSH here normal at 2.6 - Continue home levothyroxine 50 mcg daily #Anxiety disorder - Continue Lexapro 20 mg daily Admission HPI Per Admitting Provider Laisha is a 79F with a PMHx of hypothyroidism, osteopetrosis, HTN, hx of PE (no anticoagulation), depression/anxiety, and SI joint pain who presents from the pain management office with concerns for AMS. Per ED report, patient was confused and minimally responsive and sent over from the office. Patient is able to tell me she is in the hospital and and thinks she is here because she has not been able to eat or drink in 8 weeks. When asked if she has talked to anyone about this she had said no. Complains of being thirsty - says she was not allowed to drink because of her procedure. She does not know if she took her medications this morning. She does not think she has had fevers at home. She denies abd pain. Spoke with for collateral - confusion has been getting worse over the last weeks. Trouble taking care of her and managing her pain at home. Did try marijuana last week for the pain and did not help. DId not take her medication at home. Spoke with Dr. Story - for additional collateral, just met the patient tuesday, but could notice a sharp decline since then. admits to needing more help. Patient defers to for many answers. ED course: 1L NSS ceftriaxone 2g IV Discharge Exam Constitutional WD/WN, vitals as above Respiratory normal respiratory effort, lungs clear to auscultation Cardiovascular RRR, no murmur, no edema Gastrointestinal (Abdomen) normal bowel sounds, soft, nontender, no hepatosplenomegaly Psychiatric A+Ox3, euthymic affect Discharge Plan Discharge Items Patient Disposition: Transfer Inpatient Rehab Fac Reason For Visit: AMS Discharge Diagnosis: Acute Diverticulitis/Hypokalemia/Hypomagnesemia Condition on Discharge: Fair Activity: Per Instructions section Activity Comment: Per PT and OT Non-emergency contact: Primary Care Provider Call non-emergency contact if: you have any medication questions, your symptoms worsen, your pain is concerning for you and you have a fever Follow-up/Referrals: ProNoe MD [Primary Care Provider] - Diet: Carb Consistent or DM2 and Other - See Diet Comment Diet Comment: Blank, Low Residue Addtl Attending Provider Instructions: Recheck BMP and Magnesium daily, Replace potassium and magnesium. Pending Studies at Discharge: No Stand-Alone Forms: My [facility] Skilled Items Patient informed of condition?: Yes DNR: Yes Discharge Level of Care: Acute rehab Communicable Disease: No Discharge Prognosis: Stable Lines: Peripheral IV Urinary Catheter: Yes Medications and DC Order Prescriptions: New valsartan [Diovan] 80 mg Tablet 320 mg PO DAILY Qty: 120 0RF vancomycin 125 mg Capsule 125 mg PO QAM Qty: 14 0RF tamsulosin 0.4 mg Capsule 0.4 mg PO QAM Qty: 30 0RF metoprolol tartrate 25 mg Tablet 25 mg PO QAM Qty: 30 0RF loperamide 2 mg Capsule 2 mg PO Q6H PRN (Reason: loose stool) Qty: 20 0RF ondansetron HCl (PF) 4 mg/2 mL Solution 4 mg IV Q6H PRN (Reason: nausea and vomiting) Qty: 20 0RF melatonin 3 mg Tablet 3 mg PO HS PRN (Reason: sleep) Qty: 30 0RF lidocaine 5 % Adhesive Patch,Medicated 1 patch transdermal QAM Qty: 15 0RF ceftriaxone 2 gram recon soln 2 g IV DAILY metronidazole in NaCl (iso-os) 500 mg/100 mL piggyback 500 mg IV Q8H Continued Evenity 210mg/2.34mL ( 105mg/1.17mLx2) syringe 0 mg subcut ONCE Patient Comments: 07/10-no fill history unable to verify. pt doesnt really know her medications Rx Instructions: inject monthly for 12 monthly doses atorvastatin 20 mg tablet 0 mg PO DAILY Patient Comments: 07/10-last filled 03/19 90 day supply #90 escitalopram oxalate 20 mg tablet 20 mg PO DAILY Qty: 90 3RF levothyroxine 50 mcg tablet 50 mcg PO DAILY Qty: 90 3RF tramadol 50 mg tablet 50 mg PO Q6H PRN (Reason: pain) Qty: 30 0RF Probiotic 3 billion cell capsule 3,000 mmu cells PO DAILY Qty: 30 0RF Patient Comments: 07/10- otc unable to verify Rx Instructions: administer with a meal cholecalciferol (vitamin D3) 2,000 unit tablet 2,000 units PO DAILY Qty: 30 Patient Comments: 07/10- otc unable to verify folic acid 1 mg tablet 1 mg PO DAILY Patient Comments: 07/10- otc unable to verify Macular Health Formula 5-1-7.5 mg Capsule 1 cap PO DAILY Patient Comments: 07/10- otc unable to verify diltiazem HCl 240 mg capsule,extended release 24hr 0 mg PO DAILY Patient Comments: 07/10- last filled 03/13 90 day supply #90 No Action tizanidine 4 mg tablet 4 mg PO Q8H PRN (Reason: muscle spasticity) Qty: 30 0RF valsartan 160 mg tablet 160 mg PO DAILY Qty: 90 2RF meloxicam 7.5 mg tablet 7.5 - 15 mg PO DAILY MDD 2 pills Qty: 30 1RF Rx Instructions: With meals if possible. ibuprofen 200 mg tablet 200 mg PO Q6H PRN (Reason: pain/fever) Patient Comments: 07/10- otc unable to verify gabapentin 100 mg capsule 100 mg PO DAILY Qty: 30 2RF Discharge Orders: Discharge Order (Routine); Ordered 07/16/25 Ordered By: Marcos Sky/Other Patient Handouts: Dehydration Admission Data Admit Date/Time: 07/10/25 13:51 Attending Provider: Marcos Quick Admit Provider: Rachel Villagomez Primary Care Provider: Noe Jameson Other Providers: [facility]; Rachel Villagomez; Eduardo Le[facility] Hospital Stay Data Consultations 07/10/25 13:00 ED Decision to Admit Stat 07/10/25 15:48 Consult Gastroenterology Routine Diagnostic Imagining Performed 07/10/25 10:16 CT head/brain wo con Stat 07/10/25 13:39 CT Abd and Pelvis [CT abd pelvis IV con only] Stat 07/10/25 15:54 CT chest diagnostic wo con Routine Pending Results Patient Have Any Pending Studies at Discharge: No Discharge Instructions Given to Patient (Per Discharging Provider) Recheck BMP and Magnesium daily, Replace potassium and magnesium. Total Time Total Time Spent Total Time Spent (In Minutes): 35 minutes spent at the bedside discussing results and modifications to care plan with patient. Arrangements for prescription on discharge. Reviewing new medications, discharge planning and follow-up coordination Coding Level of Care Code 35364 INP/OBS DISCH >30 MIN Diagnoses Nausea & vomiting R11.2 Diverticulitis K57.92 Hypokalemia E87.6 Acute metabolic encephalopathy G93.41
[2025-07-16 18:52] LABS: Marijuana Quant, GCMS Urine 85 ng/mL (<5)
== END 2025-07-16 14:48 | DRG 871 ==
LOC: ED 09:34 → SUATTDRO 13:51 → 2N 13:51 → 3E 07-12 20:51